=== PATIENT | female | born 1995 | race Hispanic/Latino ===

== ENCOUNTER 2019-09-03 06:41 | Observation (INO) | payer OTHER, SELFPAY ==
[~2019-09-03 06:41] MED LIST: OXYTOCIN/LR 20 UNIT/1,000 ML BAG IV SCH
[2019-09-03] MEDS ORDERED: Ringers Lactate 1,000 ML IV ONE (06:57)
[2019-09-03] MEDS ORDERED: OXYTOCIN/LR 20 UNIT/1,000 ML BAG IV ONE ×2 (07:00→10:05)
--- NOTE | 2019-09-03 07:42 | ER ---
Nurse's Notes [facility] Name: Lucille Man Age: 23 yrs Sex: Female : 1995 Arrival Date: 09/03/2019 Time: 06:46 Bed 4 Private MD: Diagnosis: Spontaneous -23 weeks Presentation: 09/02 06:30 Chief complaint: EMS states: Pt reports having a miscarriage about 15 to 20 minutes ea ago, pt reported he was approximately 5 to 6 months , EMS noted fetus was not viable, after was delivered. Coronavirus screen: Patient denies fever greater than 100.4F, cough, shortness of breath, or difficulty breathing. Ebola Screen: No symptoms or risks identified at this time. Initial Sepsis Screen: Does the patient meet any 2 criteria? No. Patient's initial sepsis screen is negative. Does the patient have a suspected source of infection? No. Patient's initial sepsis screen is negative. Risk Assessment: Do you want to hurt yourself or someone else? Patient reports no desire to harm self or others. 06:30 Method Of Arrival: EMS: [facility] ea 06:30 Acuity: [place] 3 ea Triage Assessment: 06:58 General: Appears in no apparent distress. Behavior is calm, cooperative. Pain: Denies ea pain. 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 - Family history:: not pertinent. - Social history:: Smoking status: Patient denies any tobacco usage or history of. Screenin:49 Abuse screen: Denies threats or abuse. Nutritional screening: No deficits noted. ea Tuberculosis screening: No symptoms or risk factors identified. Fall Risk None identified. Assessment: 06:30 General: Appears in no apparent distress. Behavior is quiet. Neuro: Level of ea Consciousness is awake, alert, obeys commands, Oriented to person, place, time, situation. Cardiovascular: Patient's skin is warm and dry. Respiratory: Airway is patent Respiratory effort is even, unlabored, Respiratory pattern is regular, symmetrical. : Reports vaginal bleeding that is. Derm: Skin is pink, warm \T\ dry. 07:00 Reassessment: RECD REPORT FROM MIRTHA JENNINGS. 23YO HF, APPROX 5 MONTHS GESTATION P/W bp DELIVERY OF STILL BORN FETUS AND PLACENTA. NO LOCHEA NOTED AT THIS TIME, PAD IN PLACE. , UNKNOWN AMOUNT OF CARE. 07:06 Reassessment: Fetus weight .68 kg. ea 08:33 Reassessment: ADMIT TO [facility] IN PROCESS. PT RETAINS POSSESSION OF FETUS AT bp THIS TIME, MD AWARE. Vital Signs: 06:30 BP 114 / 79; Pulse 93; Resp 18; Temp 97.8; Pulse Ox 99% ; Weight 70.31 kg; Height 5 ft. ea 3 in. (160.02 cm); 07:00 BP 105 / 50; Pulse 76; Resp 16; Pulse Ox 99% ; bp 08:30 BP 98 / 55; Pulse 64; Resp 16; Pulse Ox 98% ; bp 06:30 Body Mass Index 27.46 (70.31 kg, 160.02 cm) ea ED Course: 06:45 Inserted saline lock: 20 gauge in left antecubital area, using aseptic technique. ea 06:46 Patient arrived in ED. curry 06:47 Chris Grigsby MD is Attending Physician. curry 06:57 Triage completed. ea 06:57 Patient has correct armband on for positive identification. Placed in gown. Bed in low ea position. Call light in reach. Side rails up X2. 06:57 Arm band placed on right wrist. Patient placed in an exam room, on a stretcher, on ea pulse oximetry. 07:39 Albaro Child MD is Hospitalizing Provider. curry 08:05 Markell Brown, MICHAELA is Primary Nurse. bp 08:39 No provider procedures requiring assistance completed. Patient admitted, IV remains in bp place. Administered Medications: 06:53 Drug: Lactated Ringers Solution 1000 ml Route: IV; Rate: 150 ml/hr; Site: left jb4 antecubital; 08:40 Follow up: IV Status: Infusion continued upon admission bp 06:53 Drug: Pitocin 20 units Route: IV; Rate: 150 ml/hr; Site: left antecubital; 08:40 Follow up: IV Status: Infusion continued upon admission bp Outcome: 07:41 Decision to Hospitalize by Provider. curry 08:39 Admitted to L \T\ D, accompanied by tech, via stretcher, room 279, with chart. bp 08:39 Condition: stable 08:39 Instructed on the need for admit. 09:10 Patient left the ED. bp Signatures: Chris Grigsby MD MD cha Bryson, James, RN RN jb4 Mirtha Rosa, RN RN Markell Donovan, RN RN Leslie Gardner, RN RN
--- NOTE | 2019-09-03 07:42 | EDPHYS ---
Physician Documentation [facility] Name: Lucille Man Age: 23 yrs Sex: Female : 1995 Arrival Date: 09/03/2019 Time: 06:46 Bed 4 Private MD: LANA Physician Chris Grigsby HPI: 09/02 06:50 This 23 yrs old Female presents to ER via Unassigned with complaints of curry spontaneous . 06:50 The patient presents to the emergency department with vaginal bleeding, that is light, curry passed 23 week iup , non viable. The estimated gestational age is 23 weeks. course: care: none. Previous pregnancies: in previous pregnancies patient has had vaginal delivery. Associated signs and symptoms: The patient has no apparent associated signs or symptoms. The patient has not experienced similar symptoms in the past. 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 - Family history:: not pertinent. - Social history:: Smoking status: Patient denies any tobacco usage or history of. ROS: 06:50 Constitutional: Negative for fever, chills, and weight loss, Eyes: Negative for injury, curry pain, redness, and discharge, ENT: Negative for injury, pain, and discharge, Neck: Negative for injury, pain, and swelling, Cardiovascular: Negative for chest pain, palpitations, and edema, Respiratory: Negative for shortness of breath, cough, wheezing, and pleuritic chest pain, Abdomen/GI: Negative for abdominal pain, nausea, vomiting, diarrhea, and constipation, Back: Negative for injury and pain, MS/Extremity: Negative for injury and deformity, Skin: Negative for injury, rash, and discoloration, Neuro: Negative for headache, weakness, numbness, tingling, and seizure, Psych: Negative for depression, anxiety, suicide ideation, homicidal ideation, and hallucinations, Allergy/Immunology: Negative for hives, rash, and allergies, Endocrine: Negative for neck swelling, polydipsia, polyuria, polyphagia, and marked weight changes, Hematologic/Lymphatic: Negative for swollen nodes, abnormal bleeding, and unusual bruising. 06:50 : Positive for vaginal bleeding, spontaneous . Exam: 06:50 Head/Face: Normocephalic, atraumatic. Eyes: Pupils equal round and reactive to light, curry extra-ocular motions intact. Lids and lashes normal. Conjunctiva and sclera are non-icteric and not injected. Cornea within normal limits. Periorbital areas with no swelling, redness, or edema. ENT: Nares patent. No nasal discharge, no septal abnormalities noted. Tympanic membranes are normal and external auditory canals are clear. Oropharynx with no redness, swelling, or masses, exudates, or evidence of obstruction, uvula midline. Mucous membranes moist. Neck: Trachea midline, no thyromegaly or masses palpated, and no cervical lymphadenopathy. Supple, full range of motion without nuchal rigidity, or vertebral point tenderness. No Meningismus. Chest/axilla: Normal chest wall appearance and motion. Nontender with no deformity. No lesions are appreciated. Cardiovascular: Regular rate and rhythm with a normal S1 and S2. No gallops, murmurs, or rubs. Normal PMI, no JVD. No pulse deficits. Respiratory: Lungs have equal breath sounds bilaterally, clear to auscultation and percussion. No rales, rhonchi or wheezes noted. No increased work of breathing, no retractions or nasal flaring. Back: No spinal tenderness. No costovertebral tenderness. Full range of motion. Skin: Warm, dry with normal turgor. Normal color with no rashes, no lesions, and no evidence of cellulitis. MS/ Extremity: Pulses equal, no cyanosis. Neurovascular intact. Full, normal range of motion. Neuro: Awake and alert, GCS 15, oriented to person, place, time, and situation. Cranial nerves II-XII grossly intact. Motor strength 5/5 in all extremities. Sensory grossly intact. Cerebellar exam normal. Normal gait. Psych: Awake, alert, with orientation to person, place and time. Behavior, mood, and affect are within normal limits. 06:50 Abdomen/GI: Inspection: gravid appearance, Bowel sounds: normal, Palpation: abdomen is soft and non-tender, Liver: no appreciated palpable abnormalities, Hernia: not appreciated. Vital Signs: 06:30 BP 114 / 79; Pulse 93; Resp 18; Temp 97.8; Pulse Ox 99% ; Weight 70.31 kg; Height 5 ft. ea 3 in. (160.02 cm); 07:00 BP 105 / 50; Pulse 76; Resp 16; Pulse Ox 99% ; bp 08:30 BP 98 / 55; Pulse 64; Resp 16; Pulse Ox 98% ; bp 06:30 Body Mass Index 27.46 (70.31 kg, 160.02 cm) ea MDM: 06:47 Patient medically screened. [facility] 07:01 Data reviewed: vital signs, nurses notes, lab test result(s). [facility] 09/02 06:48 Order name: Quantitative Hcg [facility] 09/02 06:48 Order name: Abo/rh Typing [facility] 09/02 06:48 Order name: Basic Metabolic Panel [facility] 09/02 06:48 Order name: CBC with Diff [facility] 09/02 08:39 Order name: ABO/RH no charge [facility] 09/02 06:48 Order name: IV Saline Lock; Complete Time: 07:01 [facility] 09/02 06:48 Order name: Labs collected and sent; Complete Time: 07:01 [facility] 09/02 06:48 Order name: NPO; Complete Time: 07:01 [facility] Administered Medications: 06:53 Drug: Lactated Ringers Solution 1000 ml Route: IV; Rate: 150 ml/hr; Site: left jb4 antecubital; 08:40 Follow up: IV Status: Infusion continued upon admission bp 06:53 Drug: Pitocin 20 units Route: IV; Rate: 150 ml/hr; Site: left antecubital; 08:40 Follow up: IV Status: Infusion continued upon admission bp Disposition: 09/03/19 07:41 Hospitalization ordered by Albaro Child for Observation. Preliminary diagnosis is Spontaneous - 23 weeks. - Bed requested for [facility]. - Status is Observation. bp - Condition is Stable. - Problem is new. - Symptoms have improved. Signatures: Dispatcher [employer] EDChris French MD MD cha Bryson, James, RN RN jb4 Mirtha Rosa RN RN ea Peltier, Brian, RN RN bp Botello, Elizabeth eb Harris, Amy RN RN Corrections: (The following items were deleted from the chart) 07:57 07:41 Hospitalization Ordered by Albaro Child MD for Observation. Preliminary eb diagnosis is Spontaneous - 23 weeks. Bed requested for [facility]. Status is Observation. Condition is Stable. Problem is new. Symptoms have improved. curry 09:10 07:57 09/03/2019 07:41 Hospitalization Ordered by Albaro Child MD for Observation. bp Preliminary diagnosis is Spontaneous - 23 weeks. Bed requested for [facility]. Status is Observation. Condition is Stable. Problem is new. Symptoms have improved. eb
[2019-09-03 07:53] LABS: Absolute Lymphocytes (CBC) 1.2 K/uL (0.7-4.9); Basophils % 0.3 % (0-1.3); Hematocrit 39.5 % (36.0-45.0); Lymphocytes % 7.1 % (15.3-44.8); MPV 9.2 fL (7.6-11.3); RBC Red Blood Cell Count 4.51 M/uL (3.86-4.86)
[2019-09-03 08:08] LABS: BUN Blood Urea Nitrogen 9 mg/dL (7-18); Bicarbonate 17 mmol/L (21-32); Glucose Level 104 mg/dL (74-106); HCG, Quantitative 5903 mIU/mL (1-3); Potassium 3.6 mmol/L (3.5-5.1); Sodium Level 134 mmol/L (136-145)
--- NOTE | 2019-09-03 09:09 | PREOPHP ---
Date of Admission: 09/03/2019 A 23-year-old 4, para 2, AB 1 at 18 weeks prior, 23 weeks by dates on this . First ended at approximately 18 weeks. The next 2 were uneventful pregnancies. With this pregna ncy, patient had been seen in the emergency room setting at approximately 20 weeks for threatened mis carriage. Everything looked better after that for the next 3 weeks. Then went into labor and passed her fetus, female, and placenta outside the hospital. Was brought in and is in the emergency room n ow. She is quite stable. Vital signs are all normal. Blood studies are pending. Because the baby is past 20 weeks and obviously looks quite normal, patient knows that arrangements will be ma de. She will be transferred up to our Labor and Delivery area where she will be monitored for the ne xt several hours, nonetheless we will let her go home this afternoon. The nurses up here will of ibeth corbin go through all the procedures with her of giving her a package with the baby's hand prints, foot prints, and photographs if desired. She has no outstanding health problems at this point. Physical exam is normal as per emergency room personnel. She does not know her blood type and of course that will be determined and we will go over with her with things today as the day progresses. Right now, she is quite stable and was resting comfortably with the baby. RICARDO/ABDIAZIZ Voice ID: [id number]
[2019-09-03 09:22] VITALS: O2SAT 98
[2019-09-03 09:27] LABS: Blood Morphology Comment NOT SEEN (NOT SEEN); Platelet Estimate ADEQ
[2019-09-03] MEDS ORDERED: Ringers Lactate 1,000 ML IV SCH (09:54)
[2019-09-03] MEDS ORDERED: ONDANSETRON 4 MG/2 ML VIAL IV PRN (09:54)
[2019-09-03] MEDS ORDERED: MORPHINE 2 MG/ML SYR IV PRN (09:54)
[2019-09-03] MEDS ORDERED: ACETAMINOPHEN 500 MG TAB PO PRN (09:54)
[2019-09-03] MEDS ORDERED: ACETAMINOPHEN 325 MG TABLET ONE (09:55)
[2019-09-03 10:27] VITALS: BMI 34.5
[2019-09-03] MEDS ORDERED: OXYTOCIN/LR 20 UNIT/1,000 ML BAG IV SCH (11:00)
[2019-09-03 11:43] VITALS: BP 98/65; TEMP 97.4
--- NOTE | 2019-09-05 07:10 | DS ---
Date of Discharge: 09/03/2019 A 23-year-old 4, para 2, AB1, 18 weeks prior miscarriage, 23 weeks by dates this . No care. Came into the emergency room with the complete delivery of fetus, which appeared n ormal female and placenta were sent to Labor and Delivery. Observed for several hours and then at he r request she was dismissed. She is Rh positive. Full dismissal instructions given. She is to repo rt any temperature elevation of 100 degrees or greater, severe pain, heavy bleeding, or any other typ e of abnormalities. She is instructed to call my office and see me for followup in 6 weeks. We will try to get the patient in contact with the psychotherapist social worker. Full dismissal instructions. RICARDO/ABDIAZIZ Voice ID: [id number] Report ID: [id number]
== END 2019-09-03 14:15 | disposition home or self-care (01) ==
LOC: ER 06:41 → ERHOLD 07:45 → 2ND-WC 08:42
PROVIDERS: ADMIT Specialist; ATTEND Specialist
DX: O03.9 Complete or unspecified spontaneous abortion without complication (principal); Z3A.23 23 weeks gestation of pregnancy
CPT/HCPCS: 36415; 80048; 84702; 85025; 86900; 86901; 88305; 96365; 96366; 99285; G0378; J2270; J2590; J7120

== ENCOUNTER 2021-12-07 09:48 | Emergency (ER) | payer OTHER ==
--- OUTSIDE RECORDS SUMMARY | 2021-12-07 09:55 | XMS REPORT | Continuity of Care Document ---
:1995 Author Organization [facility] t Address [address] [place] [address] Care Team Providers Name Role Phone PCP, DOES NOT HAVE A Primary Care Physician Unavailable TYRONE Attending Clinician Unavailable Khadra AVILA Attending Clinician Unavailable JEREMÍAS ROACH Attending Clinician Unavailable Jeremías Roach MD Attending Clinician Doctor Unassigned, Name Attending Clinician Unavailable Pob, Lab Main Attending Clinician Unavailable Tyrone CALDERÓN Attending Clinician 2, Lab Attending Clinician Unavailable Ultrasound Attending Clinician Unavailable Antonio Espinosa MD Attending Clinician ANTONIO ESPINOSA Attending Clinician Unavailable JEREMÍAS ROACH Admitting Clinician Unavailable Jeremías Roach MD Admitting Clinician Payers Payer Name Policy Type Policy Number Effective Date Expiration Date S gabino [facility] [id number] 2020 00:00:00 Problems Condition Condition Condition Status Onset Resolution Last Treating Co mments Source Name Details Category Date Date Treatment Clinician Date Liveborn Liveborn Disease Active Unive rs infant, of , of 2-18 it y of luciano luciano 00:[place] , , 00 Me d[place] born in born in [facility] hospital by by delivery delivery 39 weeks 39 weeks Disease Active Unive rs gestation gestation 2-17 ity of of of 00:00: [place] 00 [facility] 38 weeks 38 weeks Disease Active Unive rs gestation gestation 2-16 ity of of of 00:00: [place] 00 [facility] High risk High risk Disease Active 2020-06 Uni vers , , 2-28 [place] [facility] Abnormal Abnormal Disease Active 2020-06 Unive rs maternal maternal 2-07 ity of glucose glucose 00:00: [place] tolerance, tolerance, 00 Me dical antepartum antepartum Br anch History of History of Disease Active U nivers anxiety anxiety 3-31 ity of 00:00: [address] Asthma Asthma Disease Active Univers affecting affecting 3-31 ity of , , [place] antepartum antepartum 00 Me dicdc Branch Obesity Obesity Disease Active Univers (BMI (BMI 3-30 ity of 30-39.9) 30-39.9) 00:00: [place] [facility] H/O H/O Disease Active Univers 3-30 ity of section section 00:00: [place] [facility] Immune to Immune to Disease Active Uni vers varicella varicella 7-22 ity of 00:00: [place] [facility] Family Family Disease Active Univers history of history of 5-27 it y of spina spina 00:00: [place] bifida bifida 00 [facility] Allergies, Adverse Reactions, Alerts Allergy Allergy Status Severity Reaction(s) Onset Inactive Treating Comm ents Source Name Type Date Date Clinician No Known DA Active U 2020-0 [facility] 2-20 [place] 00:[facility]: e 00 [facility] No Known DA Active U 2020-0 [facility] Allergie 2-20 [place] 00:[facility]: e 00 Medical [place] NO KNOWN Drug Active Univers ALLERGIE Class ity of S [facility] Social History Social Habit Start Date Stop Date Quantity Comments Source ASSERTION 2020-11-15 University of 00:00:00 [facility] Exposure to Not sure University of SARS-CoV-2 [place] [facility] (event) Branch Alcohol intake 2021-10-07 2021-10-07 Current University 00:00:00 00:00:00 non-drinker of [facility] alcohol Branch (finding) Tobacco use and 2015-11-09 2015-11-09 Never used Universit y of exposure 00:00:00 00:00:00 [facility] Sex [birth year] Universit y of 00:00:00 00:00:00 [facility] Smoking Status Start Date Stop Date Source Never smoker [facility] Medical Branch Medications Ordered Filled Start Stop Current Ordering Indication Dosage Frequency Signature Comments Components Source Medication Medication Date Date Medication? Clinician (SIG) Name Name miSOPROStoL Yes [id number] 200ug Take 1 Univers 200 mcg 4-25 tablet by ity of tablet 00:00: mouth [place] SEE-INSTRU Medical CTIONS. Branch Take one tab the night before and one tab the morning of procedure busPIRone 5 2021- Yes [id number] 5mg Take 1 Univers mg tablet 4-25 tablet by ity o f 00:00: mouth 2 (two) Medical times Branch daily. ibuprofen 2021-0 Yes 600mg 600 mg, Univ ers (IBU) 2-19 Oral, Q6H ity of tablet 600 06:00: ABX, First [place] mg 00 dose on Medical Sat Branch 08/03/21 at 0000, Until Discontinu ed, Routine ibuprofen 2021-0 Yes 600mg 600 mg, Univ ers (IBU) 2-19 Oral, Q6H ity of tablet 600 06:00: ABX, First [place] mg 00 dose on Medical Sat Branch 08/03/21 at 0000, Until Discontinu ed, Routine HYDROcodone 2021-0 Yes 1{tbl} 1 tablet, Univers -acetaminop 2-18 Oral, ity of hen (NORCO) 06:00: Q6HPRN, [place] 10-325 mg 00 Starting Medica l tablet 1 on Fri Branch tablet 08/02/21 at 0000, Until Discontinu ed, Routine, Pain (scale 7-10) HYDROcodone 2021-0 Yes 1{tbl} 1 tablet, Univers -acetaminop 2-18 Oral, ity of hen (NORCO) 06:00: Q6HPRN, [place] 10-325 mg 00 Starting Medica l tablet 1 on Thu Branch tablet 08/02/21 at 0000, Until Discontinu ed, Routine, Pain (scale 7-10) ketorolac 2021- No 30mg 30 mg, Unive rs (TORADOL) 08-02 Slow IV ity of injection 06:00: 05:59 [place], Q6H [place] 30 mg 00 :00 ABX, 4 Medical doses, Branch First dose on Thu08/02/21 at 0000, Last dose on Thu08/02/21 at 1800, Routine
food service team member approving Restricted medication : ROJELIO ROACH ketorolac 2021- No 30mg 30 mg, Unive rs (TORADOL) 08-02 Slow IV ity of injection 06:00: 00:45 [place], Q6H [place] 30 mg 00 :00 ABX, 4 Medical doses, Branch First dose on Thu08/02/21 at 0000, Last dose on Thu08/02/21 at 1800, Routine
food service team member approving Restricted medication : ROJELIO ROACH acetaminoph Yes 650mg 650 mg, Un janny en 2-18 Oral, Q6H ity of (TYLENOL) 04:00: ABX, First [place] tablet 650 00 dose on Medica l mg [place] Branch 08/01/21 at 2200, Until Discontinu ed, Routine acetaminoph Yes 650mg 650 mg, Un janny en 2-18 Oral, Q6H ity of (TYLENOL) 04:00: ABX, First [place] tablet 650 00 dose on Medica l mg [place] Branch 08/01/21 at 2200, Until Discontinu ed, Routine acetaminoph Yes [id number] 650mg Take 2 Univers en 325 mg 2-18 tablets by ity of tablet 00:00: mouth [place] 00 every 6 Medical (six) Branch hours as needed for Pain (scale 1-3) or Pain (scale 4-6). Yes [id number] 1{tbl} Take 1 Univers vitamin 2-18 tablet by ity of w/FA tablet 00:00: mouth [place] 00 daily. Medical Branch docusate Yes [id number] 240mg Take 1 U nivers calcium 240 2-18 capsule by it y of mg capsule 00:00: mouth once [place] 00 daily as Medical needed for Branch Constipati on. ferrous 0 Yes [id number] 325mg Take 1 Un janny sulfate 325 2-18 tablet by ity of mg (65 mg 00:00: mouth 2 [place] iron) 00 (two) Medical tablet times Branch daily. ibuprofen Yes [id number] 600mg Take 1 Univers 600 mg 2-18 tablet by ity of tablet 00:00: mouth [place] 00 every 6 Medical (six) Branch hours as needed (Pain). Take with food or milk. acetaminoph Yes [id number] 650mg Take 2 Univers en 325 mg 2-18 tablets by ity of tablet 00:00: mouth [place] 00 every 6 Medical (six) Branch hours as needed for Pain (scale 1-3) or Pain (scale 4-6). Yes [id number] 1{tbl} Take 1 Univers vitamin 2-18 tablet by ity of w/FA tablet 00:00: mouth [place] 00 daily. Medical Branch docusate Yes [id number] 240mg Take 1 U nivers calcium 240 2-18 capsule by it y of mg capsule 00:00: mouth once [place] 00 daily as Medical needed for Branch Constipati on. ferrous Yes [id number] 325mg Take 1 Un janny sulfate 325 2-18 tablet by ity of mg (65 mg 00:00: mouth 2 [place] iron) 00 (two) Medical tablet times Branch daily. ibuprofen Yes [id number] 600mg Take 1 Univers 600 mg 2-18 tablet by ity of tablet 00:00: mouth [place] 00 every 6 Medical (six) Branch hours as needed (Pain). Take with food or milk. acetaminoph 0 Yes [id number] 650mg Take 2 Univers en 325 mg 2-18 tablets by ity of tablet 00:00: mouth [place] 00 every 6 Medical (six) Branch hours as needed for Pain (scale 1-3) or Pain (scale 4-6). Yes [id number] 1{tbl} Take 1 Univers vitamin 2-18 tablet by ity of w/FA tablet 00:00: mouth [place] 00 daily. Medical Branch docusate Yes [id number] 240mg Take 1 U nivers calcium 240 2-18 capsule by it y of mg capsule 00:00: mouth once [place] 00 daily as Medical needed for Branch Constipati on. ferrous Yes [id number] 325mg Take 1 Un janny sulfate 325 2-18 tablet by ity of mg (65 mg 00:00: mouth 2 [place] iron) 00 (two) Medical tablet times Branch daily. ibuprofen Yes [id number] 600mg Take 1 Univers 600 mg 2-18 tablet by ity of tablet 00:00: mouth [place] 00 every 6 Medical (six) Branch hours as needed (Pain). Take with food or milk. acetaminoph Yes [id number] 650mg Take 2 Univers en 325 mg 2-18 tablets by ity of tablet 00:00: mouth [place] 00 every 6 Medical (six) Branch hours as needed for Pain (scale 1-3) or Pain (scale 4-6). Yes [id number] 1{tbl} Take 1 Univers vitamin 2-18 tablet by ity of w/FA tablet 00:00: mouth [place] 00 daily. Medical Branch docusate Yes [id number] 240mg Take 1 U nivers calcium 240 2-18 capsule by it y of mg capsule 00:00: mouth once [place] 00 daily as Medical needed for Branch Constipati on. ferrous Yes [id number] 325mg Take 1 Un janny sulfate 325 2-18 tablet by ity of mg (65 mg 00:00: mouth 2 [place] iron) 00 (two) Medical tablet times Branch daily. ibuprofen Yes [id number] 600mg Take 1 Univers 600 mg 2-18 tablet by ity of tablet 00:00: mouth [place] 00 every 6 Medical (six) Branch hours as needed (Pain). Take with food or milk. acetaminoph 0 Yes [id number] 650mg Take 2 Univers en 325 mg 2-18 tablets by ity of tablet 00:00: mouth [place] 00 every 6 Medical (six) Branch hours as needed for Pain (scale 1-3) or Pain (scale 4-6). 0 Yes [id number] 1{tbl} Take 1 Univers vitamin 2-18 tablet by ity of w/FA tablet 00:00: mouth [place] 00 daily. Medical Branch docusate Yes [id number] 240mg Take 1 U nivers calcium 240 2-18 capsule by it y of mg capsule 00:00: mouth once [place] 00 daily as Medical needed for Branch Constipati on. ferrous Yes [id number] 325mg Take 1 Un janny sulfate 325 2-18 tablet by ity of mg (65 mg 00:00: mouth 2 [place] iron) 00 (two) Medical tablet times Branch daily. ibuprofen Yes [id number] 600mg Take 1 Univers 600 mg 2-18 tablet by ity of tablet 00:00: mouth [place] 00 every 6 Medical (six) Branch hours as needed (Pain). Take with food or milk. Yes [id number] 1{tbl} Take 1 Univers vitamin 2-18 tablet by ity of w/FA tablet 00:00: mouth [place] 00 daily. Medical Branch ferrous Yes [id number] 325mg Take 1 Un janny sulfate 325 2-18 tablet by ity of mg (65 mg 00:00: mouth 2 [place] iron) 00 (two) Medical tablet times Branch daily. acetaminoph 2021- No [id number] 650mg Take 2 Univers en 325 mg 2-18 04-25 tablets by ity of tablet 00:00: 00:00 mouth [place] 00 :00 every 6 Medical (six) Branch hours as needed for Pain (scale 1-3) or Pain (scale 4-6). docusate 2021- No [id number] 240mg Take 1 Univers calcium 240 2-18 04-25 capsule by i ty of mg capsule 00:00: 00:00 mouth once [place] 00 :00 daily as Medical needed for Branch Constipati on. ibuprofen 2021- No [id number] 600mg Take 1 Univers 600 mg 2-18 04-25 tablet by ity of tablet 00:00: 00:00 mouth [place] 00 :00 every 6 Medical (six) Branch hours as needed (Pain). Take with food or milk. HYDROcodone 2021- No [id number] 1{tbl} Take 1 U nivers -acetaminop 2-18 02-26 tablet by it y of hen 10-325 00:00: 05:59 mouth [place] mg tablet 00 :00 every 6 Medical (six) Branch hours as needed for Pain (scale 7-10) for up to 7 days. Indication s: acute pain HYDROcodone 2021- No [id number] 1{tbl} Take 1 U nivers -acetaminop 2-18 02-26 tablet by it y of hen 10-325 00:00: 05:59 mouth [place] mg tablet 00 :00 every 6 Medical (six) Branch hours as needed for Pain (scale 7-10) for up to 7 days. Indication s: acute pain HYDROcodone 2021-2021- No [id number] 1{tbl} Take 1 U nivers -acetaminop 2-18 02-26 tablet by it y of hen 10-325 00:00: 05:59 mouth [place] mg tablet 00 :00 every 6 Medical (six) Branch hours as needed for Pain (scale 7-10) for up to 7 days. Indication s: acute pain gabapentin 2021-2021- No [id number] 300mg Take 1 Univers 300 mg 2-18 02-24 capsule by ity of capsule 00:00: 05:59 mouth 3 [place] 00 :00 (three) Medical times Branch daily for 5 days. gabapentin 2021-2021- No [id number] 300mg Take 1 Univers 300 mg 2-18 02-24 capsule by ity of capsule 00:00: 05:59 mouth 3 [place] 00 :00 (three) Medical times Branch daily for 5 days. gabapentin 2021-2021- No [id number] 300mg Take 1 Univers 300 mg 2-18 02-24 capsule by ity of capsule 00:00: 05:59 mouth 3 [place] 00 :00 (three) Medical times Branch daily for 5 days. gabapentin 2022-0 Yes 300mg 300 mg, Uni vers (NEURONTIN) 2-17 Oral, TID, it y of capsule 300 20:00: First dose [place] mg 00 on [facility] 08/01/21 at Branch 1400, Until Discontinu ed, Routine gabapentin 2-0 Yes 300mg 300 mg, Uni vers (NEURONTIN) 2-17 Oral, TID, it y of capsule 300 20:00: First dose [place] mg 00 on [facility] 08/01/21 at Branch 1400, Until Discontinu ed, Routine simethicone 0 Yes 125mg 125 mg, Un janny (MYLICON) 2-17 Oral, ity of chewable 19:00: PC+HS, [place] tablet 125 00 First dose Med ical mg on [place] Branch 08/01/21 at 1300, Until Discontinu ed, Routine simethicone 0 Yes 125mg 125 mg, Un janny (MYLICON) 2-17 Oral, ity of chewable 19:00: PC+HS, [place] tablet 125 00 First dose Med ical mg on [place] Branch 08/01/21 at 1300, Until Discontinu ed, Routine lactated 2021- No 1000mL at 125 [facility] ringers IV 08-01 02-17 mL/hr, ity of infusion 16:15: 16:02 1,000 mL, [place] 1,000 mL 00 :00 IV Medical Infusion, Branch ONCE, 1 dose, On [facility] 08/01/21 at 1015, Routine rho(D) 0 Yes 300ug [facility] Intr[facility] ity of globulin 16:00: lar, ONCE, [place] (RHOGAM) 22 For 1 Medical syringe 300 dose, Branch mcg Conditiona l, Routine rho(D) 0 Yes 300ug 300 mcg, Univer s immune 17 Intramuscu ity of globulin 16:00: lar, ONCE, [place] (RHOGAM) 22 For 1 Medical syringe 300 dose, Branch mcg Conditiona l, Routine diphenhydrA 0 Yes 25mg 25 mg, [facility] MINE 08-01 Slow IV ity of (BENADRYL) 16:00: Push, [place] injection 17 Q6HPRN, Medical 25 mg Starting Branch on [place] 08/01/21 at 1000, Until Discontinu ed, Routine, Itching diphenhydrA 0 Yes 25mg 25 mg, [facility] MINE 17 Oral, ity of (BENADRYL) 16:00: Q6HPRN, [place] tablet 25 17 Starting Medica l mg on [place] Branch 08/01/21 at 1000, Until Discontinu ed, Routine, Sleep, Itching ondansetron 0 Yes 4mg 4 mg, Slow Univers (ZOFRAN 2-17 IV Push, ity of (PF)) 16:00: Q8HPRN, [place] injection 4 17 Starting Medi chante mg on [place] Branch 08/01/21 at 1000, Until Discontinu ed, Routine, Nausea and Vomiting (N/V) bisacodyL 2022-0 Yes 10mg 10 mg, Univer s (DULCOLAX) 2-17 Rectal, ity of suppository 16:00: QDAILYPRN, [place] 10 mg 17 Starting Medical on [place] Branch 08/01/21 at 1000, Until Discontinu ed, Routine, Constipati on docusate 2022-0 Yes 240mg 240 mg, Unive rs calcium 2-17 Oral, ity of (SURFAK) 16:00: QDAILYPRN, [place] capsule 240 17 Starting Medi chante mg on [place] Branch 08/01/21 at 1000, Until Discontinu ed, Routine, Constipati on magnesium 2-0 Yes 30mL 30 mL, Univer s hydroxide 2-17 Oral, ity of (MILK OF 16:00: QDAILYPRN, [place] MAGNESIA) 17 Starting Medica l 400 mg/5 mL on [place] Branch suspension 08/01/21 at 30 mL 1000, Until Discontinu ed, Routine, Constipati on diphenhydrA 2022-0 Yes 25mg 25 mg, Univ ers MINE 2-17 Slow IV ity of (BENADRYL) 16:00: Push, [place] injection 17 Q6HPRN, Medical 25 mg Starting Branch on [place] 08/01/21 at 1000, Until Discontinu ed, Routine, Itching diphenhydrA 2022-0 Yes 25mg 25 mg, Univ ers MINE 2-17 Oral, ity of (BENADRYL) 16:00: Q6HPRN, [place] tablet 25 17 Starting Medica l mg on [place] Branch 08/01/21 at 1000, Until Discontinu ed, Routine, Sleep, Itching ondansetron 2022-0 Yes 4mg 4 mg, Slow Univers (ZOFRAN 2-17 IV Push, ity of (PF)) 16:00: Q8HPRN, [place] injection 4 17 Starting Medi chante mg on [place] Branch 08/01/21 at 1000, Until Discontinu ed, Routine, Nausea and Vomiting (N/V) bisacodyL Yes 10mg 10 mg, Univer s (DULCOLAX) 2-17 Rectal, ity of suppository 16:00: QDMIKEYPRN, [place] 10 mg 17 Starting Medical on [place] Branch 08/01/21 at 1000, Until Discontinu ed, Routine, Constipati on docusate Yes 240mg 240 mg, Unive rs calcium 17 Oral, ity of (SURFAK) 16:00: QDAILYPRN, [place] capsule 240 17 Starting Medi chante mg on [place] Branch 08/01/21 at 1000, Until Discontinu ed, Routine, Constipati on magnesium Yes 30mL 30 mL, Univer s hydroxide 08-01 Oral, ity of (MILK OF 16:00: QDAILYPRN, [place] MAGNESIA) 17 Starting Medica l 400 mg/5 mL on [place] Branch suspension 08/01/21 at 30 mL 1000, Until Discontinu ed, Routine, Constipati on sodium No 30mL 30 mL, Univers citrate-cit 17 -17 Oral, ity of jose alejandro acid 12:08: 14:02 PRE-PROCED [place] (BICITRA) 41 :00 URE ONCE, Medic al [id number] 1 dose, Branch mg/5 mL Starting solution 30 on [place] mL 08/01/21 at 0608, Until Discontinu ed, Routine, Surgery/Pr ocedure PNV 0 Yes [id number] Take 1 Univers 102-iron-fo 7-14 TAB-CAP/M2 it y of late-dha 00:00: by mouth [place] (VITAFOL FE 00 daily. Medica l PLUS) 90 mg Branch iron- 1 mg-200 mg Cap metoclopram Yes [id number] 10mg Take 1 Univers cheli HCl 10 7-14 tablet by ity of mg tablet 00:00: mouth [place] 00 every 6 Medical (six) Branch hours as needed for Nausea and Vomiting (N/V). PNV 0 Yes [id number] Take 1 Univers 102-iron-fo 7-14 TAB-CAP/M2 it y of late-dha 00:00: by mouth [place] (VITAFOL FE 00 daily. Medica l PLUS) 90 mg Branch iron- 1 mg-200 mg Cap metoclopram 0 Yes [id number] 10mg Take 1 Univers cheli HCl 10 7-14 tablet by ity of mg tablet 00:00: mouth [place] 00 every 6 Medical (six) Branch hours as needed for Nausea and Vomiting (N/V). PNV 2020-0 Yes [id number] Take 1 Univers 102-iron-fo 7-14 TAB-CAP/M2 it y of late-dha 00:00: by mouth [place] (VITAFOL FE 00 daily. Medica l PLUS) 90 mg Branch iron- 1 mg-200 mg Cap metoclopram 0 Yes [id number] 10mg Take 1 Univers cheli HCl 10 7-14 tablet by ity of mg tablet 00:00: mouth [place] 00 every 6 Medical (six) Branch hours as needed for Nausea and Vomiting (N/V). PNV Yes [id number] Take 1 Univers 102-iron-fo 7-14 TAB-CAP/M2 it y of late-dha 00:00: by mouth [place] (VITAFOL FE 00 daily. Medica l PLUS) 90 mg Branch iron- 1 mg-200 mg Cap metoclopram 0 Yes [id number] 10mg Take 1 Univers cheli HCl 10 7-14 tablet by ity of mg tablet 00:00: mouth [place] 00 every 6 Medical (six) Branch hours as needed for Nausea and Vomiting (N/V). PNV 0 Yes [id number] Take 1 Univers 102-iron-fo 7-14 TAB-CAP/M2 it y of late-dha 00:00: by mouth [place] (VITAFOL FE daily. Medica l PLUS) 90 mg Branch iron- 1 mg-200 mg Cap metoclopram 0 Yes [id number] 10mg Take 1 Univers cheli HCl 10 7-14 tablet by ity of mg tablet 00:00: mouth [place] 00 every 6 Medical (six) Branch hours as needed for Nausea and Vomiting (N/V). PNV 2020-0 Yes [id number] Take 1 Univers 102-iron-fo 7-14 TAB-CAP/M2 it y of late-dha 00:00: by mouth [place] (VITAFOL FE 00 daily. Medica l PLUS) 90 mg Branch iron- 1 mg-200 mg Cap metoclopram 0 Yes [id number] 10mg Take 1 Univers cheli HCl 10 7-14 tablet by ity of mg tablet 00:00: mouth [place] 00 every 6 Medical (six) Branch hours as needed for Nausea and Vomiting (N/V). PNV 2020-0 Yes [id number] Take 1 Univers 102-iron-fo 7-14 TAB-CAP/M2 it y of late-dha 00:00: by mouth [place] (VITAFOL FE 00 daily. Medica l PLUS) 90 mg Branch iron- 1 mg-200 mg Cap metoclopram 2020-0 Yes [id number] 10mg Take 1 Univers cheli HCl 10 7-14 tablet by ity of mg tablet 00:00: mouth [place] 00 every 6 Medical (six) Branch hours as needed for Nausea and Vomiting (N/V). PNV 2020-0 Yes [id number] Take 1 Univers 102-iron-fo 7-14 TAB-CAP/M2 it y of late-dha 00:00: by mouth [place] (VITAFOL FE 00 daily. Medica l PLUS) 90 mg Branch iron- 1 mg-200 mg Cap metoclopram 0 Yes [id number] 10mg Take 1 Univers cheli HCl 10 7-14 tablet by ity of mg tablet 00:00: mouth [place] 00 every 6 Medical (six) Branch hours as needed for Nausea and Vomiting (N/V). PNV 2020-0 Yes [id number] Take 1 Univers 102-iron-fo 7-14 TAB-CAP/M2 it y of late-dha 00:00: by mouth [place] (VITAFOL FE 00 daily. Medica l PLUS) 90 mg Branch iron- 1 mg-200 mg Cap metoclopram 2020-0 Yes [id number] 10mg Take 1 Univers cheli HCl 10 7-14 tablet by ity of mg tablet 00:00: mouth [place] 00 every 6 Medical (six) Branch hours as needed for Nausea and Vomiting (N/V). PNV 2020-0 Yes [id number] Take 1 Univers 102-iron-fo 7-14 TAB-CAP/M2 it y of late-dha 00:00: by mouth [place] (VITAFOL FE 00 daily. Medica l PLUS) 90 mg Branch iron- 1 mg-200 mg Cap metoclopram 2020-0 Yes [id number] 10mg Take 1 Univers cheli HCl 10 7-14 tablet by ity of mg tablet 00:00: mouth [place] 00 every 6 Medical (six) Branch hours as needed for Nausea and Vomiting (N/V). PNV 2020-0 Yes [id number] Take 1 Univers 102-iron-fo 7-14 TAB-CAP/M2 it y of late-dha 00:00: by mouth [place] (VITAFOL FE 00 daily. Medica l PLUS) 90 mg Branch iron- 1 mg-200 mg Cap metoclopram 2020-0 Yes [id number] 10mg Take 1 Univers cheli HCl 10 7-14 tablet by ity of mg tablet 00:00: mouth [place] 00 every 6 Medical (six) Branch hours as needed for Nausea and Vomiting (N/V). PNV 2020-0 Yes [id number] Take 1 Univers 102-iron-fo 7-14 TAB-CAP/M2 it y of late-dha 00:00: by mouth [place] (VITAFOL FE 00 daily. Medica l PLUS) 90 mg Branch iron- 1 mg-200 mg Cap metoclopram 0 Yes [id number] 10mg Take 1 Univers cheli HCl 10 7-14 tablet by ity of mg tablet 00:00: mouth [place] 00 every 6 Medical (six) Branch hours as needed for Nausea and Vomiting (N/V). PNV 0 Yes [id number] Take 1 Univers 102-iron-fo 7-14 TAB-CAP/M2 it y of late-dha 00:00: by mouth [place] (VITAFOL FE 00 daily. Medica l PLUS) 90 mg Branch iron- 1 mg-200 mg Cap metoclopram 2020-0 Yes [id number] 10mg Take 1 Univers cheli HCl 10 7-14 tablet by ity of mg tablet 00:00: mouth [place] 00 every 6 Medical (six) Branch hours as needed for Nausea and Vomiting (N/V). PNV 2020-0 Yes [id number] Take 1 Univers 102-iron-fo 7-14 TAB-CAP/M2 it y of late-dha 00:00: by mouth [place] (VITAFOL FE 00 daily. Medica l PLUS) 90 mg Branch iron- 1 mg-200 mg Cap metoclopram 2020-0 Yes [id number] 10mg Take 1 Univers cheli HCl 10 7-14 tablet by ity of mg tablet 00:00: mouth [place] 00 every 6 Medical (six) Branch hours as needed for Nausea and Vomiting (N/V). PNV 2021-0 Yes [id number] Take 1 Univers 102-iron-fo 7-14 TAB-CAP/M2 it y of late-dha 00:00: by mouth [place] (VITAFOL FE 00 daily. Medica l PLUS) 90 mg Branch iron- 1 mg-200 mg Cap metoclopram 0 Yes [id number] 10mg Take 1 Univers cheli HCl 10 7-14 tablet by ity of mg tablet 00:00: mouth [place] 00 every 6 Medical (six) Branch hours as needed for Nausea and Vomiting (N/V). PNV 0 Yes [id number] Take 1 Univers 102-iron-fo 7-14 TAB-CAP/M2 it y of late-dha 00:00: by mouth [place] (VITAFOL FE 00 daily. Medica l PLUS) 90 mg Branch iron- 1 mg-200 mg Cap metoclopram Yes [id number] 10mg Take 1 Univers cheli HCl 10 7-14 tablet by ity of mg tablet 00:00: mouth [place] 00 every 6 Medical (six) Branch hours as needed for Nausea and Vomiting (N/V). PNV Yes [id number] Take 1 Univers 102-iron-fo 7-14 TAB-CAP/M2 it y of late-dha 00:00: by mouth [place] (VITAFOL FE 00 daily. Medica l PLUS) 90 mg Branch iron- 1 mg-200 mg Cap metoclopram 0 Yes [id number] 10mg Take 1 Univers cheli HCl 10 7-14 tablet by ity of mg tablet 00:00: mouth [place] 00 every 6 Medical (six) Branch hours as needed for Nausea and Vomiting (N/V). PNV 0 Yes [id number] Take 1 Univers 102-iron-fo 7-14 TAB-CAP/M2 it y of late-dha 00:00: by mouth [place] (VITAFOL FE 00 daily. Medica l PLUS) 90 mg Branch iron- 1 mg-200 mg Cap metoclopram 0 Yes [id number] 10mg Take 1 Univers cheli HCl 10 7-14 tablet by ity of mg tablet 00:00: mouth [place] 00 every 6 Medical (six) Branch hours as needed for Nausea and Vomiting (N/V). PNV 2020-0 Yes [id number] Take 1 Univers 102-iron-fo 7-14 TAB-CAP/M2 it y of 00:00: by mouth [place] (VITAFOL FE 00 daily. Medica l PLUS) 90 mg Branch iron- 1 mg-200 mg Cap metoclopram Yes [id number] 10mg Take 1 Univers cheli HCl 10 7-14 tablet by ity of mg tablet 00:00: mouth [place] 00 every 6 Medical (six) Branch hours as needed for Nausea and Vomiting (N/V). PNV 2020-0 Yes [id number] Take 1 Univers 102-iron-fo 7-14 TAB-CAP/M2 it y of 00:00: by mouth [place] (VITAFOL FE 00 daily. Medica l PLUS) 90 mg Branch iron- 1 mg-200 mg Cap metoclopram Yes [id number] 10mg Take 1 Univers cheli HCl 10 7-14 tablet by ity of mg tablet 00:00: mouth [place] 00 every 6 Medical (six) Branch hours as needed for Nausea and Vomiting (N/V). PNV 202- No [id number] Take 1 Univer s 102-iron-fo 7-14 04-25 TAB-CAP/M2 i [place] of 00:00[place]VITAFOL FE 00 :00 daily. Medica l PLUS) 90 mg Branch iron- 1 mg-200 mg Cap metoclopram 2- No [id number] 10mg Take 1 Univers cheli HCl 10 7-14 04-25 tablet by ity of mg tablet 00:00: 00:00 mouth [place] 00 :00 every 6 Medical (six) Branch hours as needed for Nausea and Vomiting (N/V). Immunizations Ordered Filled Immunization Date Status Comments [facility] e Immunization Name Name TD 2021-05-21 Completed University of 00:00:00 [facility] TDAP 2021-05-21 Completed University of 00:00:00 [facility] TDAP 2021-05-21 Completed University of 00:00:00 [facility] TDAP 2021-05-21 Completed University of 00:00:00 [facility] TDAP 2021-05-21 Completed University of 00:00:00 [facility] TDAP 2021-05-21 Completed University of 00:00:00 [facility] TDAP 2021-05-21 Completed University of 00:00:00 [facility] TDAP 2021-05-21 Completed University of 00:00:00 [place] [facility] TDAP 2021-05-21 Completed University of 00:00:00 [facility] TDAP 2021-05-21 Completed University of 00:00:00 [facility] TDAP 2021-05-21 Completed University of 00:00:00 [facility] TDAP 2021-05-21 Completed University of 00:00:00 [facility] TDAP 2021-05-21 Completed University of 00:00:00 [facility] TDAP 2021-05-21 Completed University of 00:00:00 [facility] TDAP 2021-05-21 Completed University of 00:00:00 [facility] TDAP 2021-05-21 Completed University of 00:00:00 [facility] TDAP 2021-05-21 Completed University of 00:00:00 [facility] TDAP 2021-05-21 Completed University of 00:00:00 [facility] TDAP 2021-05-21 Completed University of 00:00:00 [facility] TDAP 2021-05-21 Completed University of 00:00:00 [facility] TDAP 2021-05-21 Completed University of 00:00:00 [facility] Influenza Virus 2021-03-22 Completed Universit y of Vaccine 00:00:00 [facility] Influenza Virus 2021-03-22 Completed Universit y of Vaccine 00:00:00 [facility] Influenza Virus 2021-03-22 Completed Universit y of Vaccine 00:00:00 [facility] Influenza Virus 2021-03-22 Completed Universit y of Vaccine 00:00:00 [facility] Influenza Virus 2021-03-22 Completed Universit y of Vaccine 00:00:00 [facility] Influenza Virus 2021-03-22 Completed Universit y of Vaccine 00:00:00 [facility] Influenza Virus 2021-03-22 Completed Universit y of Vaccine 00:00:00 [facility] Influenza Virus 2021-03-22 Completed Universit y of Vaccine 00:00:00 [facility] Influenza Virus 2021-03-22 Completed Universit y of Vaccine 00:00:00 [facility] Influenza Virus 2021-03-22 Completed Universit y of Vaccine 00:00:00 [place] [facility] Influenza Virus 2021-03-22 Completed Universit y of Vaccine 00:00:00 [facility] Influenza Virus 2021-03-22 Completed Universit y of Vaccine 00:00:00 [facility] Influenza Virus 2021-03-22 Completed Universit y of Vaccine 00:00:00 [facility] Influenza Virus 2021-03-22 Completed Universit y of Vaccine 00:00:00 [facility] Influenza Virus 2021-03-22 Completed Universit y of Vaccine 00:00:00 [facility] Influenza Virus 2021-03-22 Completed Universit y of Vaccine 00:00:00 [facility] Influenza Virus 2021-03-22 Completed Universit y of Vaccine 00:00:00 [facility] Influenza Virus 2021-03-22 Completed Universit y of Vaccine 00:00:00 [facility] Influenza Virus 2021-03-22 Completed Universit y of Vaccine 00:00:00 [facility] Influenza Virus 2021-03-22 Completed Universit y of Vaccine 00:00:00 [facility] Influenza Virus 2021-03-22 Completed Universit y of Vaccine 00:00:00 [facility] HPV9 2017-09-13 Completed University of 00:00:00 [facility] HPV9 2017-09-13 Completed University of 00:00:00 [facility] HPV9 2017-09-13 Completed University of 00:00:00 [facility] HPV9 2017-09-13 Completed University of 00:00:00 [facility] HPV9 2017-09-13 Completed University of 00:00:00 [facility] HPV9 2017-09-13 Completed University of 00:00:00 [facility] HPV9 2017-09-13 Completed University of 00:00:00 [facility] HPV9 2017-09-13 Completed University of 00:00:00 [facility] HPV9 2017-09-13 Completed University of 00:00:00 [facility] HPV9 2017-09-13 Completed University of 00:00:00 [facility] HPV9 2017-09-13 Completed University of 00:00:00 [facility] HPV9 2017-09-13 Completed University of 00:00:00 [facility] HPV9 2017-09-13 Completed University of 00:00:00 [facility] HPV9 2017-09-13 Completed University of 00:00:00 [facility] HPV9 2017-09-13 Completed University of 00:00:00 [facility] HPV9 2017-09-13 Completed University of 00:00:00 [facility] HPV9 2017-09-13 Completed University of 00:00:00 [place] [facility] HPV9 2017-09-13 Completed University of 00:00:00 [facility] HPV9 2017-09-13 Completed University of 00:00:00 [facility] HPV9 2017-09-13 Completed University of 00:00:00 [facility] HPV9 2017-09-13 Completed University of 00:00:00 [facility] MMR 2016-05-02 Completed University of 00:00:00 [facility] MMR 2016-05-02 Completed University of 00:00:00 [facility] MMR 2016-05-02 Completed University of 00:00:00 [facility] MMR 2016-05-02 Completed University of 00:00:00 [facility] MMR 2016-05-02 Completed University of 00:00:00 [facility] MMR 2016-05-02 Completed University of 00:00:00 [facility] MMR 2016-05-02 Completed University of 00:00:00 [facility] MMR 2016-05-02 Completed University of 00:00:00 [facility] MMR 2016-05-02 Completed University of 00:00:00 [facility] MMR 2016-05-02 Completed University of 00:00:00 [facility] MMR 2016-05-02 Completed University of 00:00:00 [facility] MMR 2016-05-02 Completed University of 00:00:00 [facility] MMR 2016-05-02 Completed University of 00:00:00 [facility] MMR 2016-05-02 Completed University of 00:00:00 [facility] MMR 2016-05-02 Completed University of 00:00:00 [facility] MMR 2016-05-02 Completed University of 00:00:00 [facility] MMR 2016-05-02 Completed University of 00:00:00 [facility] MMR 2016-05-02 Completed University of 00:00:00 [facility] MMR 2016-05-02 Completed University of 00:00:00 [facility] MMR 2016-05-02 Completed University of 00:00:00 [facility] MMR 2016-05-02 Completed University of 00:00:00 [facility] Influenza Virus 2016-03-21 Completed Universit y of Vaccine Quad IM 3+ 00:00:00 [facility] Influenza Virus 2016-03-21 Completed Universit y of Vaccine [facility] IM 3+ 00:00:00 [facility] Influenza Virus 2016-03-21 Completed Universit y of Vaccine [facility] IM 3+ 00:00:00 [facility] Influenza Virus 2016-03-21 Completed Universit y of Vaccine [facility] IM 3+ 00:00:00 [facility] Influenza Virus 2016-03-21 Completed Universit y of Vaccine [facility] IM 3+ 00:00:00 [facility] Influenza Virus 2016-03-21 Completed Universit y of Vaccine [facility] IM 3+ 00:00:00 [facility] Influenza Virus 2016-03-21 Completed Universit y of Vaccine [facility] IM 3+ 00:00:00 [facility] Influenza Virus 2016-03-21 Completed Universit y of Vaccine [facility] IM 3+ 00:00:00 [facility] Influenza Virus 2016-03-21 Completed Universit y of Vaccine [facility] IM 3+ 00:00:00 [facility] Influenza Virus 2016-03-21 Completed Universit y of Vaccine [facility] IM 3+ 00:00:00 [facility] Influenza Virus 2016-03-21 Completed Universit y of Vaccine [facility] IM 3+ 00:00:00 [facility] Influenza Virus 2016-03-21 Completed Universit y of Vaccine [facility] IM 3+ 00:00:00 [facility] Influenza Virus 2016-03-21 Completed Universit y of Vaccine [facility] IM 3+ 00:00:00 [facility] Influenza Virus 2016-03-21 Completed Universit y of Vaccine [facility] IM 3+ 00:00:00 [facility] Influenza Virus 2016-03-21 Completed Universit y of Vaccine [facility] IM 3+ 00:00:00 [facility] Influenza Virus 2016-03-21 Completed Universit y of Vaccine [facility] IM 3+ 00:00:00 [facility] Influenza Virus 2016-03-21 Completed Universit y of Vaccine [facility] IM 3+ 00:00:00 [facility] Influenza Virus 2016-03-21 Completed Universit y of Vaccine [facility] IM 3+ 00:00:00 [facility] Influenza Virus 2016-03-21 Completed Universit y of Vaccine [facility] IM 3+ 00:00:00 [facility] Influenza Virus 2016-03-21 Completed Universit y of Vaccine [facility] IM 3+ 00:00:00 [facility] Influenza Virus 2016-03-21 Completed Universit y of Vaccine Quad IM 3+ 00:00:00 [facility] TDAP 2016-03-07 Completed University of 00:00:00 [facility] TDAP 2016-03-07 Completed University of 00:00:00 [facility] TDAP 2016-03-07 Completed University of 00:00:00 [facility] TDAP 2016-03-07 Completed University of 00:00:00 [facility] TDAP 2016-03-07 Completed University of 00:00:00 [facility] TDAP 2016-03-07 Completed University of 00:00:00 [facility] TDAP 2016-03-07 Completed University of 00:00:00 [facility] TDAP 2016-03-07 Completed University of 00:00:00 [facility] TDAP 2016-03-07 Completed University of 00:00:00 [facility] TDAP 2016-03-07 Completed University of 00:00:00 [facility] TDAP 2016-03-07 Completed University of 00:00:00 [facility] TDAP 2016-03-07 Completed University of 00:00:00 [facility] TDAP 2016-03-07 Completed University of 00:00:00 [facility] TDAP 2016-03-07 Completed University of 00:00:00 [facility] TDAP 2016-03-07 Completed University of 00:00:00 [facility] TDAP 2016-03-07 Completed University of 00:00:00 [facility] TDAP 2016-03-07 Completed University of 00:00:00 [facility] TDAP 2016-03-07 Completed University of 00:00:00 [facility] TDAP 2016-03-07 Completed University of 00:00:00 [facility] TDAP 2016-03-07 Completed University of 00:00:00 [facility] TDAP 2016-03-07 Completed University of 00:00:00 [facility] Vital Signs Vital Name Observation Time Observation Value Comments Source Systolic blood 2021-10-07 21:45:00 108 mm[Hg] Univer sity of pressure [facility] Diastolic blood 2021-10-07 21:45:00 75 mm[Hg] Unive rsity of pressure [facility] Heart rate 2021-10-07 21:45:00 82 /min Universi ty of [facility] Body temperature 2021-10-07 21:45:00 37.11 [place] Univ ersity [facility] [place] [facility] Respiratory rate 2021-10-07 21:45:00 18 /min Univ [facility] [place] [facility] Body height 2021-10-07 21:45:00 154.9 cm Universi ty of [place] [facility] Body weight 2021-10-07 21:45:00 84.732 kg [facility]i ty [facility] [place] [facility] BMI 2021-10-07 21:45:00 35.30 kg/m2 [facility] ty [facility] [place] [facility] Systolic blood 2021-08-03 01:30:00 125 mm[Hg] Univer sity of pressure [place] [facility] Diastolic blood 2021-08-03 01:30:00 84 mm[Hg] Unive rsity of pressure [place] [facility] Heart rate 2021-08-03 01:30:00 78 /min Universi ty of [place] [facility] Body temperature 2021-08-03 01:30:00 36.89 [place] Univ ersity of [facility] Respiratory rate 2021-08-03 01:30:00 18 /min Univ ersity of [facility] Oxygen saturation in 2021-08-02 22:21:00 97 /min University of Arterial blood by [facility] Pulse oximetry Branch Body height 2021-08-01 13:18:00 154.9 cm Universi ty of [place] [facility] Body weight 2021-08-01 13:18:00 90.719 kg [facility]i [facility] [place] [facility] BMI 2021-08-01 13:18:00 37.79 kg/m2 [facility] [place] [facility] Body height 2021-08-01 13:18:00 154.9 cm [facility]i [facility] [place] [facility] Body weight 2021-08-01 13:18:00 90.719 kg [facility]i [facility] [place] [facility] BMI 2021-08-01 13:18:00 37.79 kg/m2 [facility] [place] [facility] Systolic blood 2021-08-01 13:05:00 114 mm[Hg] Univer sity of pressure [place] [facility] Diastolic blood 2021-08-01 13:05:00 71 mm[Hg] Unive rsity of pressure [facility] Heart rate 2021-08-01 13:05:00 96 /min Universi ty of [facility] Oxygen saturation in 2021-08-01 13:05:00 96 /min University of Arterial blood by [facility] Pulse oximetry Branch Respiratory rate 2021-08-01 13:00:00 18 /min Univ [facility] [place] [facility] Heart rate 2021-07-31 01:15:00 107 /min Universi ty of [place] [facility] Oxygen saturation in 2021-07-31 01:15:00 99 /min University of Arterial blood by [facility] Pulse oximetry Branch Systolic blood 2021-07-29 22:20:00 119 mm[Hg] Univer sity of pressure [place] [facility] Diastolic blood 2021-07-29 22:20:00 80 mm[Hg] Unive rsity of pressure [place] [facility] Heart rate 2021-07-29 22:20:00 85 /min Universi ty of [place] [facility] Body temperature 2021-07-29 22:20:00 36.78 [place] [facility] [place] [facility] Respiratory rate 2021-07-29 22:20:00 18 /min Univ [facility] [place] [facility] Body height 2021-07-29 22:20:00 154.9 cm [facility]i [facility] [place] [facility] Body weight 2021-07-29 22:20:00 90.266 kg Universi ty of [place] [facility] BMI 2021-07-29 22:20:00 37.60 kg/m2 [facility] [place] [facility] Systolic blood 2021-07-22 22:17:00 116 mm[Hg] Univer sity of pressure [place] [facility] Diastolic blood 2021-07-22 22:17:00 65 mm[Hg] Unive rsity of pressure [place] [facility] Heart rate 2021-07-22 22:17:00 103 /min [facility]i ty [facility] [place] [facility] Body temperature 2021-07-22 22:17:00 36.67 [place] [facility] [place] [facility] Respiratory rate 2021-07-22 22:17:00 18 /min Univ [facility] [place] [facility] Body height 2021-07-22 22:17:00 154.9 cm [facility] [place] [facility] Body weight 2021-07-22 22:17:00 91.627 kg [facility] [place] [facility] BMI 2021-07-22 22:17:00 38.17 kg/m2 [facility] [place] [facility] Systolic blood 2021-07-10 22:07:00 112 mm[Hg] Univer sity of pressure [place] [facility] Diastolic blood 2021-07-10 22:07:00 72 mm[Hg] Unive rsity of pressure [place] [facility] Heart rate 2021-07-10 22:07:00 88 /min [facility]i ty [facility] [place] [facility] Body temperature 2021-07-10 22:07:00 36.72 [place] [facility] [place] [facility] Respiratory rate 2021-07-10 22:07:00 18 /min Univ [facility] [place] [facility] Body height 2021-07-10 22:07:00 152.4 cm [facility] [place] [facility] Body weight 2021-07-10 22:07:00 90.266 kg [facility] [place] [facility] BMI 2021-07-10 22:07:00 38.86 kg/m2 [facility] [place] [facility] Systolic blood 2021-06-25 21:59:00 108 mm[Hg] Univer sity of pressure [place] [facility] Diastolic blood 2021-06-25 21:59:00 73 mm[Hg] Unive rsity of pressure [place] [facility] Heart rate 2021-06-25 21:59:00 102 /min [facility]i ty [facility] [place] [facility] Body temperature 2021-06-25 21:59:00 36.78 [place] [facility] [place] [facility] Respiratory rate 2021-06-25 21:59:00 18 /min Univ [facility] [place] [facility] Body height 2021-06-25 21:59:00 152.4 cm [facility] [place] [facility] Body weight 2021-06-25 21:59:00 89.812 kg [facility] [place] [facility] BMI 2021-06-25 21:59:00 38.67 kg/m2 [facility] [place] [facility] Systolic blood 2021-06-11 22:10:00 116 mm[Hg] Univer sity of pressure [place] [facility] Diastolic blood 2021-06-11 22:10:00 70 mm[Hg] Unive rsity of pressure [place] [facility] Heart rate 2021-06-11 22:10:00 120 /min [facility]i ty [facility] [place] [facility] Body temperature 2021-06-11 22:10:00 37.06 [place] [facility] [place] [facility] Body height 2021-06-11 22:10:00 152.4 cm [facility] [place] [facility] Body weight 2021-06-11 22:10:00 90.175 kg [facility] BMI 2021-06-11 22:10:00 38.83 kg/m2 [facility] Procedures Procedure Date / Time Performing Clinician Source Performed DME/SUPPLY JUSTIFICATION 2021-08-21 06:01:00 Doctor Unassigned, No [facility] CBC WITH DIFF 2021-08-02 09:42[facility] 2021-08-02 09:42:00 Rojelio Roach [facility] SECTION 2021-08-01 13[facility]51[facility]-01 13:51:00 Rojelio Roach [facility] [place] [facility] HOSPITAL ADMISSION 2021-08-01 06:01:00 Doctor Unassigned, No [facility] ASSIGNMENT OF BENEFITS 2021-07-31 22:41:25 Doctor Unassigned, No [facility] HB ABO GROUPING 2021-07-31 01:10:00 Rojelio Roach [facility] RHO (D) IMMUNE GLOBULIN 2021-07-31 01:10:00 Rojelio Roach [facility] RHO (D) IMMUNE GLOBULIN 2021-07-31 01:10:00 Rojelio Roach [facility] CBC WITH DIFF 2021-07-31 01:09:00 Rojelio Roach [facility] ADC CLC OR [facility] ONLY - 2021-07-31 00:59:00 Rojelio Roach [facility] WET PREP [facility] COVID-19 (ID NOW RAPID 2021-07-31 00:59:00 Rojelio Roach [facility] TESTING) Medical Branch CONSENT/REFUSAL FOR 2021-07-30 23:58:29 [facility] ASSIGNMENT OF BENEFITS 2021-07-30 23:57:57 Doctor Unassigned, No [facility] POCT URINALYSIS W/O 2021-07-29 00:00:00 Rojelio Roach [facility] SPECIFIC GRAVITY Medical Branch 3 HR GLUCOSE TOLERANCE 2021-07-26 18:33:00 [facility] [place] TEST [facility] 2 HR GLUCOSE TOLERANCE 2021-07-26 17:41:00 Sad[facility] [place] TEST Medical [facility] 1 HR GLUCOSE TOLERANCE 2021-07-26 16:41:00 Sad[facility] [place] TEST Medical Branch GLUCOSE FASTING 2021-07-26 15:33:00 Sadia Hansen o f [place] [facility] 3 HR GLUCOSE TOLERANCE 2021-07-26 15:33:00 Sad[facility] [place] PANEL Medical Branch CONSENT/REFUSAL FOR 2021-07-22 20:48:03 Doctor Unassigned, No [facility] [place] [facility] Name Medical Branch ASSIGNMENT OF BENEFITS 2021-07-22 20:47:49 Doctor Unassigned, No [facility] Name Medical Branch POCT URINALYSIS W/O 2021-07-22 00:00:00 Sadia Hansen [facility] [place] SPECIFIC GRAVITY Medical Branch >14 WEEKS US 2021-07-10 23:12:42 [facility] [place] LIMITED Medical Branch DSU PRE-OP 2021-07-10 06:01:00 [facility]igned, No [facility] [place] [facility] POCT URINALYSIS W/O 2021-07-10 00:00:00 Rojelio Roach [facility] [place] SPECIFIC GRAVITY Medical Branch POCT URINALYSIS W/O 2021-06-25 00:00:00 Sadia Hansen [facility] [place] SPECIFIC GRAVITY Medical Branch NOTICE OF PRIVACY 2021-06-12 19:42:38 Doctor Unassigned, No [facility] [place] [facility] Name Medical Branch NOTICE OF PRIVACY 2021-06-12 19:42:38 Doctor Unassigned, No [facility] [place] [facility] Name Medical Branch CONSENT/REFUSAL FOR 2021-06-12 19:42:24 Doctor Unassigned, No [facility] [place] [facility] Name Medical Branch CONSENT/REFUSAL FOR 2021-06-12 19:42:24 Doctor Unassigned, No [facility] [place] [facility]REAT[facility] Name Medical Branch ASSIGNMENT OF BENEFITS 2021-06-12 19:42:08 Doctor Unassigned, No [facility] ASSIGNMENT OF BENEFITS 2021-06-12 19:42:08 Doctor Unassigned, No [facility] POCT URINALYSIS W/O 2021-06-11 [facility]:00[facility] Encounters Start End Encounter Admission Attending Care Care Encounter Source Date/Time Date/Time Type Type Clinicians Facility Department ID 2021-07-30 Outpatient P [facility] SON [id number] Univers 20:33:16 [facility] 2019-08-04 Inpatient HCABM NEYMAR [id number] [facility] 10:11:00 [facility] 2022-04-08 2022-04-08 Outpatient Echo HANSEN [facility] [id number] Univers 13:30:00 13:30:00 SADIA [id number] [facility] 2022-04-08 2022-04-08 Outpatient Echo HANSEN [facility] [id number] Univers 13:30:00 13:30:00 SADIA [facility] 2021-11-29 2021-11-29 Outpatient Echo AVILA [facility] [id number] Univers 08:45:00 08:45:00 DARIUS [id number] [facility] 2021-11-29 2021-11-29 Outpatient Echo AVILA [facility] [id number] Univers 08:45:00 08:45:00 DARIUS [facility] 2021-11-14 2021-11-14 Outpatient ROJELIO FAULKNER [facility] [id number] Univers 14:00:00 14:00:00 [id number] [facility] 2021-11-14 2021-11-14 Outpatient ROJELIO FAULKNER [facility] [id number] Univers 14:00[facility] 2021-11-12 Outpatient ROJELIO FAULKNER [facility] [id number] Univers 15:30:00 15:30:00 [id number] [facility] 2021-11-12 2021-11-12 Outpatient R ROACHROJELIO [facility] [id number] Univers 15:30:00 15:30:00 ity [facility] 2021-10-28 2021-10-28 Outpatient R ROJELIO ROACH [facility] [id number] Univers 13:00:00 13:00:00 [id number] ity [facility] 2021-10-28 2021-10-28 Outpatient R ROACHROJELIO [facility] [id number] Univers 13:00:00 13:00:00 ity [facility] 2021-10-09 2021-10-09 Outpatient R SANTIAGOROSARIO [facility] [id number] 1N-20 Univers 13:15:00 13:15:00 SADIA [id number] ity [facility] 2021-10-09 2021-10-09 Outpatient R TYRONE [facility] [id number] Univers 13:15:00 13:15:00 [facility] 2021-10-07 2021-10-07 Outpatient R MARLEY ROJELIO [facility] [id number] Univers 16:00:00 17:07:46 ity [facility] 2021-10-07 2021-10-07 Routine Marley [facility] [id number] Univers 16:00:00 17:07:46 Cam ELADIA 350.1.13.10 ity of Visit [place] 4.2.7.2.686 [place] s PROFESSIO [phone] N[place] dical [address] 2021-10-07 2021-10-07 Outpatient R MARLEY ROJELIO [facility] [id number] 1N-20 Univers 16:00:00 16:00:00 [id number] ity [facility] 2021-09-10 2021-09-10 Outpatient R MARLEY ROJELIO [facility] [id number] 1N-20 Univers 14:00:00 14:00:00 [id number] ity [facility] 2021-09-10 2021-09-10 Outpatient R MARLEY ROJELIO [facility] [id number] Univers 14:00:00 14:00:00 ity [facility] 2021-08-21 2021-08-21 Telephone Rojelio Roach [facility] 1.2.840.114 [id number] Univers 00:00:00 00:00:00 Cam [place] 350.1.13.10 i ty [facility] 4.2.7.2.686 [place] [facility] [phone] N[place] dical [facility] [address] [facility] 2021-08-21 2021-08-21 Orders Doctor AURA 1.2.840.114 [id number] Univers 00:00:00 00:00:00 Only Unassigned, ANUJ 350.1.13.10 ity of [place] [facility] 4.2.7.2.686 [place] [phone] [facility] [address] 2021-08-19 2021-08-19 Outpatient R ROJELIO ROACH [facility] [id number] 1N-20 Univers 16:15:00 16:15:00 [id number] ity of [facility] 2021-08-19 2021-08-19 Outpatient R MARLEY [facility] [id number] Univers 16:15:00 16:15:00 ity of [facility] 2021-08-15 2021-08-15 Outpatient R MARLEY [facility] [id number] 1N-20 Univers 15:30:00 15:30:00 [id number] ity [facility] 2021-08-15 2021-08-15 Outpatient R MARLEY [facility] [id number] Univers 15:30:00 15:30:00 ity [facility] 2021-08-01 2021-08-02 Inpatient P MARLEY [facility] [id number] Univers 06:04:00 20:50:00 ity [facility] 2021-08-01 2021-08-02 Hospital Marley [facility] 1.2.840.114 [id number] Univers 06:04:00 20:50:00 Encounter Cam [place] 350.1.13.10 ity of [place]2.7.2.[place] C[place] [phone] [facility] [address] 2021-08-01 2021-08-01 [facility] [id number] [id number] Univers 08:00:00 09:25:00 Cam [place] 350.1.13.10 i ty of [place] 4.2.7.2.686 [facility] [phone] [facility] [address] 2021-08-01 2021-08-01 Orders Doctor AURA 1.2.840.114 [id number] Univers 00:00:00 00:00:00 Only Unassigned, ANUJ 350.1.13.10 ity of [place] [facility] 4.2.7.2.686 [place] [phone] [facility] [address] 2021-07-31 2021-07-31 Outpatient R [facility] [id number] -[id number] Univers 10:30:00 10:30:00 [id number] ity of [facility] 2021-07-31 2021-07-31 Outpatient R [facility] [id number] Univers 10:00:00 10:00:00 ity of [facility] 2021-07-31 2021-07-31 Orders Doctor AURA 1.2.840.114 [id number] Univers 00:00:00 00:00:00 Only Unassigned, ANUJ 350.1.13.10 ity of [place] [facility] 4.2.7.2.686 [place] [phone] [facility] [address] 2021-07-30 2021-07-30 Outpatient P ROJELIO ROACH [facility] SON [id number] Univers 17:56:00 20:15:00 ity of [facility] 2021-07-30 2021-07-30 [facility] 1.2.840.114 [id number] Univers 17:56:00 20:15:00 Encounter Cam ELADIA 350.1.13.10 ity of [place] 4.2.7.2.686 [facility] [phone] [facility] [address] 2021-07-29 2021-07-29 Outpatient R ROJELIO ROACH [facility] [id number] Univers 16:15:00 16:52:23 ity of [facility] 2021-07-29 2021-07-29 [facility]ine [facility] 1.2.144.153 [id number] Univers 16:15:00 16:52:23 Cam ELAD[place] 350.1.13.10 ity [place].2.[place] [phone] Nc dical NAL [address] [facility] 2021-07-29 2021-07-29 Outpatient R ROACH ROJELIO [facility] [id number] 1N-20 Univers 16:15:00 16:15:00 [id number] ity of [facility] 2021-07-26 2021-07-26 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 Ken Morales Lab Main [facility] 1.2.8 40.114 [id number] Univers 09:45:00 10:00:00 Visit Sadia Hansen 350.1.13.10 ity of [place].2.7.2.[place] [phone] Nc dical NAL [address] [facility] 2021-07-26 2021-07-26 Outpatient R [facility] [id number] -20 Univers 09:45:00 09:45:00 [id number] ity of [facility] 2021-07-26 2021-07-26 [facility] [id number] Univers 08:45:00 08:45:00 SADIA ity of [facility] 2021-07-25 2021-07-25 Outpatient R [facility] [id number] -[id number] Univers 08:00:00 08:00:00 [id number] ity of [facility] 2021-07-25 2021-07-25 Outpatient R [facility] [id number] Univers 08:00:00 08:00:00 ity of [facility] 2021-07-23 2021-07-23 Anuj Rojelio Roach [facility] 1.2.394.672 [id number] Univers 00:00:00 00:00:00 Management Jeremías MONTILLA 350.1.13.10 ity of [place].2.[place] [phone] Nc dical NAL [address] [facility] 2021-07-22 2021-07-22 Routine Tyrone [facility] 1.2.992.040 [id number] Univers 16:00:00 16:15:00 Sadia MONTILLA 350.1.13.10 ity [facility] 4.2.7.2.[place] [phone] Nc dical [facility] [address] [facility] 2021-07-22 2021-07-22 Outpatient R TYRONE [facility] [id number] Univers 16:00:00 16:00:00 SADIA ity [facility] 2021-07-22 2021-07-22 Outpatient R TYRONE [facility] [id number] 1N-20 Univers 15:30:00 15:30:00 SADIA [id number] ity [facility] 2021-07-22 2021-07-22 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 2, Adc Lab [facility] 1.2.840.114 [id number] Univers 15:30:00 15:30:00 Visit Rojelio Roach 350.1.13.10 it[place] of [place].2.[place] [phone] [facility] [address] [facility] 2021-07-22 2021-07-22 Orders Doctor AURA 1.2.840.114 [id number] Univers 00:00:00 00:00:00 Only Unassigned, ANUJ 350.1.13.10 ity of [place] [facility] 4.2.7.2.686 [place] [phone] [address] 2021-07-18 2021-07-18 Case Marley Rojelio [facility] 1.2.508.580 [id number] Univers 00:00:00 00:00:00 Management Jeremías MONTILLA 350.1.13.10 ity of [place].2.[place] [id number] Nc dical NAL [address] [facility] 2021-07-12 2021-07-12 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 Ultrasound, David-Mfm [facility] 1.2 .840.114 [id number] Univers 14:00:00 14:30:00 Visit Andrew Espinosa 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 350.1.13.1 0 ity of [facility] 4.2.7.2.686 [place] MATERNAL [phone] Med ical & CHILD [address] [place] [address] 2021-07-12 2021-07-12 Outpatient R [facility] [id number] -[id number] Univers 14:00:00 14:00:00 [id number] ity [facility] 2021-07-12 2021-07-12 Outpatient P ESPINOSA [facility] [id number] Univers 14:00:00 14:00:00 ANDREW ity [facility] 2021-07-10 2021-07-10 Outpatient R MARLEY [facility] [id number] Univers 15:30:00 16:44:21 ity [facility] 2021-07-10 2021-07-10 Routine Marley [facility] 1.2.754.637 [id number] Univers 15:30:00 16:44:21 Cam [place] 350.1.13.10 ity of [place] 4.2.7.2.686 [facility] [phone] [address] 2021-07-10 2021-07-10 Outpatient R MARLEY [facility] [id number] 1N-20 Univers 15:30:00 15:30:00 [id number] ity [facility] 2021-07-10 2021-07-10 Orders Doctor AURA 1.2.840.114 [id number] Univers 00:00:00 00:00:00 Only Unassigned, ANUJ 350.1.13.10 ity of [place] [facility] 4.2.7.2.686 [place] [phone] [address] 2021-07-03 2021-07-03 Outpatient R [facility] [id number] -[id number] Univers 08:30:00 08:30:00 [id number] ity [facility] 2021-07-03 2021-07-03 Outpatient R [facility] [id number] Univers 08:30:00 08:30:00 ity [facility] 2021-06-25 2021-06-25 Outpatient R TYRONE [facility] [id number] Univers 15:30:00 16:25:35 [facility] 2021-06-25 2021-06-25 Routine Tyrone [facility] 1.2.599.612 [id number] Univers 15:30:00 16:25:35 Sadia MONTILLA 350.1.13.10 ity of [place].2.[place] [phone] Nc dical [facility] [address] [facility] 2021-06-12 2021-06-12 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 2, Adc Lab [facility] 1.2.840.114 [id number] Univers 13:15:00 13:30:00 Visit Rojelio Roach 350.1.13.10 ity of [place].2.[place] [phone] Nc dicdc NAL [address] [facility] 2021-06-12 2021-06-12 Outpatient R ROJELIO ROACH [facility] [id number] Univers 13:15:00 13:15:00 ity of [facility] 2021-06-11 2021-06-11 Routine Rojelio Roach [facility] 1.2.962.835 [id number] Univers 15:45:00 16:26:43 Jeremías MONTILLA 350.1.13.10 ity of [place].2.[place] [phone] [facility] [address] [facility] Results Test Description Test Time Test Comments Results Result Comments Source CBC with Differential 2021-08-02 11:15:58 Test Item Value Reference Range Interpretation Comme nts WBC (test code = 6690-2) See_Comment [A utomated message] The system which Kofik[employer] nerated this result transmit trevor reference range: 4.30 - 1 1.10 10*3/?L. The reference r parag was not used to interpr et this result as normal/abnor mal. RBC (test code = 789-8) See_Comment [Au tomated message] The system which [employer] nerated this result transmit trevor reference range: 3.93 - 5 .25 10*6/?L. The reference r parag was not used to interpr et this result as normal/abnor mal. HGB (test code = 718-7) 11.1 g/dL 11.6-15.0 L HCT (test code = 4544-3) 34.4 % 35.7-45.2 L MCV (test code = 787-2) 87.3 fL 80.6-95.5 MCH (test code = 785-6) 28.2 pg 25.9-32.8 MCHC (test code = 786-4) 32.3 g/dL 31.6-35.1 RDW-SD (test code = 98198-2) 47.2 fL 39.0-49.9 RDW-CV (test code = 788-0) 14.6 % 12.0-15.5 PLT (test code = 777-3) See_Comment [Au tomated message] The system which ge nerated this result transmit trevor reference range: 166 - 35 8 10*3/?L. The reference range was not used to interpret th is result as normal/abnormal . MPV (test code = 06443-8) 10.6 fL 9.5-12.9 NRBC/100 WBC (test code = See_Comment [ Automated message] The 4570640537) system which ge nerated this result transmit trevor reference range: 0.0 - 10 .0 /100 WBCs. The reference r parag was not used to interpr et this result as normal/abnor mal. NRBC x10^3 (test code = <0.01 See_Comment [Au tomated message] The 5217513920) system which ge nerated this result transmit trevor reference range: 10*3/?L. The reference range was not u sed to interpret this result as normal/abnormal . GRAN MAT (NEUT) % (test code 69.5 % = 770-8) IMM GRAN % (test code = 0.40 % 5383391980) LYMPH % (test code = 736-9) 20.1 % MONO % (test code = 5905-5) 8.3 % EOS % (test code = 713-8) 1.4 % BASO % (test code = 706-2) 0.3 % GRAN MAT x10^3(ANC) (test 4.95 10*3/uL 1.88-7.09 code = 5217176045) IMM GRAN x10^3 (test code = 0.03 10*3/uL 0.00-0.06 2063221287) LYMPH x10^3 (test code = 1.43 10*3/uL 1.32-3.29 731-0) MONO x10^3 (test code = 0.59 10*3/uL 0.33-0.92 742-7) EOS x10^3 (test code = 0.10 10*3/uL 0.03-0.39 711-2) BASO x10^3 (test code = <0.03 0.01-0.07 704-7) Lab Interpretation (test Abnormal code = 90402-2) [facility] with [id number] 11:15:58 Test Item Value Reference Range Interpretation Comments WBC (test code = See_Comment [Automated 6690-2) message] The sy stem which generated this result transmitted reference range : 4.30 - 11.10 10*3/?L. The reference range was not used to interpret this result as normal/abnormal . RBC (test code = See_Comment [Automated 789-8) message] The sy stem which generated this result transmitted reference range : 3.93 - 5.25 10*6/?L. The reference range was not used to interpret this result as normal/abnormal . HGB (test code = 11.1 g/dL 11.6-15.0 L 718-7) HCT (test code = 34.4 % 35.7-45.2 L 4544-3) MCV (test code = 87.3 fL 80.6-95.5 787-2) MCH (test code = 28.2 pg 25.9-32.8 785-6) MCHC (test code = 32.3 g/dL 31.6-35.1 786-4) RDW-SD (test code = 47.2 fL 39.0-49.9 73128-7) RDW-CV (test code = 14.6 % 12.0-15.5 788-0) PLT (test code = See_Comment [Automated 777-3) message] The sy stem which generated this result transmitted reference range : 166 - 358 10*3/ ?L. The reference r parag was not used to interpret this result as normal/abnormal . MPV (test code = 10.6 fL 9.5-12.9 59758-3) NRBC/100 WBC (test See_Comment [Automat ed code = 5675721554) message] The system which generated this result transmitted reference range : 0.0 - 10.0 /100 WBCs. The refer ence range was not u sed to interpret th is result as normal/abnormal . NRBC x10^3 (test code <0.01 See_Comment [Auto mated = 5454932799) message] The s ystem which generated this result transmitted reference range : 10*3/?L. The reference range was not used to interpret this result as normal/abnormal . GRAN MAT (NEUT) % 69.5 % (test code = 770-8) IMM GRAN % (test code 0.40 % = 9349276090) LYMPH % (test code = 20.1 % 736-9) MONO % (test code = 8.3 % 5905-5) EOS % (test code = 1.4 % 713-8) BASO % (test code = 0.3 % 706-2) GRAN MAT x10^3(ANC) 4.95 10*3/uL 1.88-7.09 (test code = 8647422518) IMM GRAN x10^3 (test 0.03 10*3/uL 0.00-0.06 code = 8604625630) LYMPH x10^3 (test code 1.43 10*3/uL 1.32-3.29 = 731-0) MONO x10^3 (test code 0.59 10*3/uL 0.33-0.92 = 742-7) EOS x10^3 (test code = 0.10 10*3/uL 0.03-0.39 711-2) BASO x10^3 (test code <0.03 0.01-0.07 = 704-7) Lab Interpretation Abnormal (test code = 91229-0) [facility] (D) IMMUNE [id number] 20:14:21 Test Item Value Reference Range Interpretation Comments RHIG CANDIDATE? No- see comment Patient i s not a (test code = candidate for R hIg- 5055) Patient is Rh Positive.Perfor med at [facility] Laboratory Services - [facility] Blood [address] [place] [address]Fhgr Free: [phone] A No. [id number] [facility] (D) IMMUNE [id number] 20:14:21 Test Item Value Reference Range Interpretation Comments RHIG CANDIDATE? No- see comment Patient i s not a (test code = candidate for R [facility]- 5055) Patient is Rh Positive.Perfor med at [facility] Laboratory Services - [facility] Blood [address] [place] [address]Toll Free: [phone] A No. [id number] [facility] - ONCE [id number] 01:57:26 Test Item Value Reference Range Interpretation Comments ABO & RH (test code A Positive Performe d at [facility] = 20) Laboratory Serv [facility] Blood Bank1 [address] [place] [address]Toll Free: [phone] A No. [id number] IAT (test code = Negative Performed a t [facility] 1185) Laboratory Serv [facility] Blood [facility]1 [address]Toll Free: [phone] A No. [id number] [facility] HospitalCBC WITH [id number] 01:35:53 Test Item Value Reference Range Interpretation Comments WBC (test code = See_Comment [Automated 9190-2) message] The sy stem which generated this result transmitted reference range : 4.30 - 11.10 10*3/?L. The reference range was not used to interpret this result as normal/abnormal . RBC (test code = See_Comment [Automated 367-8) message] The sy stem which generated this result transmitted reference range : 3.93 - 5.25 10*6/?L. The reference range was not used to interpret this result as normal/abnormal . HGB (test code = 11.4 g/dL 11.6-15.0 L 718-7) HCT (test code = 34.7 % 35.7-45.2 L 4544-3) MCV (test code = 85.7 fL 80.6-95.5 787-2) MCH (test code = 28.1 pg 25.9-32.8 785-6) MCHC (test code = 32.9 g/dL 31.6-35.1 786-4) RDW-SD (test code = 46.4 fL 39.0-49.9 79416-8) RDW-CV (test code = 14.9 % 12.0-15.5 788-0) PLT (test code = See_Comment [Automated 777-3) message] The sy stem which generated this result transmitted reference range : 166 - 358 10*3/ ?L. The reference r parag was not used to interpret this result as normal/abnormal . MPV (test code = 10.1 fL 9.5-12.9 42830-3) NRBC/100 WBC (test See_Comment [Automat ed code = 4966207462) message] The system which generated this result transmitted reference range : 0.0 - 10.0 /100 WBCs. The refer ence range was not u sed to interpret th is result as normal/abnormal . NRBC x10^3 (test code <0.01 See_Comment [Auto mated = 8654643914) message] The s ystem which generated this result transmitted reference range : 10*3/?L. The reference range was not used to interpret this result as normal/abnormal . GRAN MAT (NEUT) % 73.0 % (test code = 770-8) IMM GRAN % (test code 0.50 % = 5392454026) LYMPH % (test code = 18.9 % 736-9) MONO % (test code = 6.6 % 5905-5) EOS % (test code = 0.8 % 713-8) BASO % (test code = 0.2 % 706-2) GRAN MAT x10^3(ANC) 4.79 10*3/uL 1.88-7.09 (test code = 8569218667) IMM GRAN x10^3 (test 0.03 10*3/uL 0.00-0.06 code = 9421877683) LYMPH x10^3 (test code 1.24 10*3/uL 1.32-3.29 L = 731-0) MONO x10^3 (test code 0.43 10*3/uL 0.33-0.92 = 742-7) EOS x10^3 (test code = 0.05 10*3/uL 0.03-0.39 711-2) BASO x10^3 (test code <0.03 0.01-0.07 = 704-7) Lab Interpretation Abnormal (test code = 63932-7) [facility] URINALYSIS W/O SPECIFIC [id number] 22:26:00 Test Item Value Reference Range Interpretation Comments POCT PH U (test code = 3254) negative 5-8 POCT U LEUK EST (test code = negative Negative - Negative 3263) POCT U NIT (test code = 3262) negative Negative - Negative POCT U PROT (test code = 3259) trace Negative - Negative POCT U GLU (test code = 3256) negative Negative - Negative POCT U KETONE (test code = 3258) negative Negative - Negative POCT U BLD (test code = 3257) negative Negative - Negative [facility] URINALYSIS W/O SPECIFIC [id number] 22:19:00 Test Item Value Reference Range Interpretation Comments POCT PH U (test code = 3254) n/a 5-8 POCT U LEUK EST (test code = 3263) n/a Negative - Negative POCT U NIT (test code = 3262) n/a Negative - Negative POCT U PROT (test code = 3259) neg Negative - Negative POCT U GLU (test code = 3256) neg Negative - Negative POCT U KETONE (test code = 3258) n/a Negative - Negative POCT U BLD (test code = 3257) n/a Negative - Negative Lab Interpretation (test code = Normal 29940-2) [facility] URINALYSIS W/O SPECIFIC [id number] 22:21:00 Test Item Value Reference Range Interpretation Comments POCT PH U (test code = 3254) N/A 5-8 POCT U LEUK EST (test code = N/A Negative - Negative 3263) POCT U NIT (test code = 3262) N/A Negative - Negative POCT U PROT (test code = 3259) Negative Negative - Negative POCT U GLU (test code = 3256) Negative Negative - Negative POCT U KETONE (test code = 3258) N/A Negative - Negative POCT U BLD (test code = 3257) N/A Negative - Negative [facility] URINALYSIS W/O SPECIFIC [id number] 22:01:00 Test Item Value Reference Range Interpretation Comments POCT PH U (test code = 3254) N/A 5-8 POCT U LEUK EST (test code = N/A Negative - Negative 3263) POCT U NIT (test code = 3262) N/A Negative - Negative POCT U PROT (test code = 3259) Negative Negative - Negative POCT U GLU (test code = 3256) Negative Negative - Negative POCT U KETONE (test code = 3258) N/A Negative - Negative POCT U BLD (test code = 3257) N/A Negative - Negative [facility]/O SPECIFIC [id number] 22:09:00 Test Item Value Reference Range Interpretation Comments POCT PH U (test code = 3254) n/a 5-8 POCT U LEUK EST (test code = n/a Negative - Negative 3263) POCT U NIT (test code = 3262) n/a Negative - Negative POCT U PROT (test code = 3259) negative Negative - Negative POCT U GLU (test code = 3256) normal Negative - Negative POCT U KETONE (test code = 3258) n/a Negative - Negative POCT U BLD (test code = 3257) n/a Negative - Negative [facility] [id number] 16:45:00 Test Item Value Reference Range Interpretation Comments UA COLOR (test code = YELLOW YELLOW COLU) UA APPEARANCE (test code Cloudy CLEAR A = APPU) UA GLUCOSE DIPSTICK (test NEGATIVE mg/dL NEGATIVE code = DGLUU) UA BILIRUBIN DIPSTICK NEGATIVE mg/dL NEGATIVE (test code = BILU) UA KETONE DIPSTICK (test 40 (2+) mg/dL NEGATIVE A code = KETU) UA SPECIFIC GRAVITY (test 1.045 1.001-1.035 code = SGU) UA BLOOD DIPSTICK (test 0.5 mg/dL (2+) mg/dL NEGATIVE A code = ROSENDO) UA PH DIPSTICK (test code 6.0 5.0-8.0 = MADONNA) UA PROTEIN DIPSTICK (test 70 (1+) mg/dL NEGATIVE A code = PROU) UA UROBILINIOGEN DIPSTICK Normal mg/dL NEGATIVE (test code = URO) UA NITRITE DIPSTICK (test NEGATIVE NEGATIVE code = KHADIJAH) UA LEUKOCYTE ESTERASE W NEGATIVE Roger/uL NEGATIVE REFLEX (test code = LEUUR) UA WBC (test code = WBCU) per HPF 0-5 UA RBC (test code = RBCU) per HPF 0-5 UA EPITHELIAL CELLS (test per HPF Few code = EPIU) UA BACTERIA (test code = per HPF NONE BACU) Urine Source? Clean CatchURINALYSIS [id number] 16:45:00 Test Item Value Reference Range Interpretation Comments UA COLOR (test code = YELLOW YELLOW COLU) UA APPEARANCE (test code Cloudy CLEAR A = APPU) UA GLUCOSE DIPSTICK (test NEGATIVE mg/dL NEGATIVE code = DGLUU) UA BILIRUBIN DIPSTICK NEGATIVE mg/dL NEGATIVE (test code = BILU) UA KETONE DIPSTICK (test 40 (2+) mg/dL NEGATIVE A code = KETU) UA SPECIFIC GRAVITY (test 1.045 1.001-1.035 code = SGU) UA BLOOD DIPSTICK (test 0.5 mg/dL (2+) mg/dL NEGATIVE A code = ROSENDO) UA PH DIPSTICK (test code 6.0 5.0-8.0 = MADONNA) UA PROTEIN DIPSTICK (test 70 (1+) mg/dL NEGATIVE A code = PROU) UA UROBILINIOGEN DIPSTICK Normal mg/dL NEGATIVE (test code = URO) UA NITRITE DIPSTICK (test NEGATIVE NEGATIVE code = KHADIJAH) UA LEUKOCYTE ESTERASE W NEGATIVE Roger/uL NEGATIVE REFLEX (test code = LEUUR) UA WBC (test code = WBCU) 0-5 per HPF 0-5 UA RBC (test code = RBCU) 0-2 #/HPF 0-5 UA EPITHELIAL CELLS (test MANY per HPF FEW code = EPIU) UA BACTERIA (test code = MANY #/HPF NONE A BACU) UA MUCUS (test code = MANY #/LPF FEW A MUCU) Urine Source? Clean CatchBASIC METABOLIC [id number] 11:59:00 Test Item Value Reference Range Interpretation Comments SODIUM (test code = 135 mmol/L 136-145 L NA) POTASSIUM (test code 3.7 mmol/L 3.5-5.1 N = K) CHLORIDE (test code = 106.0 mmol/L 98-107 N CL) CARBON DIOXIDE (test 25.0 mmol/L 21-32 N code = CO2) ANION GAP (test code 7.7 10-20 L = GAP) GLUCOSE (test code = 88 mg/dL 74-106 N GLU) BLOOD UREA NITROGEN 11 mg/dL 7-18 N (test code = BUN) GLOMERULAR FILTRATION > 60 mL/min >=60 Estima trevor GFR by RATE (test code = using Cammy fied MDRD GFR) formula.Chronic kidney disease is defined as eith er kidney damageor GFR <60 mL/min/1.73 m2 for >3 months. CREATININE (test code 0.70 mg/dL 0.55-1.02 N Note change in = CREAT) reference range due to change in reagent. BUN/CREATININE RATIO 15.7 10-20 N (test code = BUN/CREA) CALCIUM (test code = 8.6 mg/dL 8.5-10.1 N CA) HEPATIC FUNCTION [id number] 11:59:00 Test Item Value Reference Range Interpretation Comments TOTAL PROTEIN (test 7.8 gram/dL 6.4-8.2 N code = PROT) ALBUMIN (test code = 3.2 g/dL 3.4-5.0 L ALB) GLOBULIN (test code = 4.6 gram/dL 2.7-4.2 H GLOB) ALBUMIN/GLOBULIN RATIO 0.7 0.75-1.50 L (test code = A/G) BILIRUBIN TOTAL (test 0.30 mg/dL 0.0-1.0 N code = BILT) BILIRUBIN DIRECT (test 0.09 mg/dL 0.0-0.20 N code = BILD) SGOT/AST (test code = 11 IUnit/L 15-37 L AST) SGPT/ALT (test code = 16 IUnit/L 12-78 N ALT) ALKALINE PHOSPHATASE 90 IUnit/L 45-117 N Note change in TOTAL (test code = reference range due ALKP) to change in reagent. HCG SERUM [id number] 11:59:00 Test Item Value Reference Range Interpretation Comments HCG SERUM BETA 8832.0 mIU/mL 0-3 H Interfering substances (test code = present in the serum of HCG) somepatients ma y cause a false-positive result in this assay.Ques tionable elevations in s kathy hCG should be confi rmedwith a urine hCG. Pierre spected Trophoblastic N eoplasms shouldnot be di agnosed based on serun hCG/beta hCG alone. They must be confirmed by cl inical history and tis meaghan diagnosis.INTER PRETATION :B-HCG LEVELS < 5 SHOULD BE CONSIDERED A S "NEGATIVE." *WH EN BODERLINE RESUL TS ARE ENCOUNTERED,PAT IENT SAMPLESSHOULD B E REDRAWN 48 HOURS. 0-1 WEEKS AFTER CONCEPTIO N 5-50 MIU/ML1-2 WEEKS AFTER CONCEPTION 50-500 MIU/ ML2-3 WEEKS AFTER CON CEPTION 100 - 5,000 MIU/ML3-4 WEEKS AFTER CONCEPTION 500-10,000 MIU /ML4-5 WEEKS AFTER CON CEPTION 1000 -50 ,000 MIU/ML5-6 WEEKS AFTER CONCEPTION 10,000-100,000 MIU/ML6-8 WEEKS AFTER CONCEPTION 15,000- 200,000 MIU/ML2-3 MONTH S AFTER CONCEPTION 10,000-100,000 MIU/ML CBC W/O [id number] 11:40:00 Test Item Value Reference Range Interpretation Comments WHITE BLOOD CELL (test code = 12.5 K/mm3 4.5-12.5 N WBC) RED BLOOD CELL (test code = 4.73 mill/mm3 3.7-5.2 N RBC) HEMOGLOBIN (test code = HGB) 14.1 gram/dL 11.5-15.5 N HEMATOCRIT (test code = HCT) 41.8 % 36.0-46.0 N MEAN CELL VOLUME (test code = 88.4 fL 80-98 N MCV) MEAN CELL HGB (test code = MCH) 29.8 picogram 27.0-33.0 N MEAN CELL HGB CONCETRATION 33.7 gram/dL 33.0-36.0 N (test code = MCHC) RED CELL DISTRIBUTION WIDTH 13.8 % 11.6-16.2 N (test code = RDW) PLATELET COUNT (test code = 249 K/mm3 150-450 N PLT) MEAN PLATELET VOLUME (test code 10.8 fL 6.7-11.0 N = MPV) BASIC METABOLIC [id number] 11:38:00 Test Item Value Reference Range Interpretation Comments SODIUM (test code = NA) 135 mmol/L 136-145 L POTASSIUM (test code = K) 3.7 mmol/L 3.5-5.1 N CHLORIDE (test code = CL) 106.0 mmol/L 98-107 N CARBON DIOXIDE (test code = CO2) mmol/L 21-32 ANION GAP (test code = GAP) 10-20 GLUCOSE (test code = GLU) mg/dL 74-106 BLOOD UREA NITROGEN (test code = mg/dL 7-18 BUN) GLOMERULAR FILTRATION RATE (test mL/min >=60 code = GFR) CREATININE (test code = CREAT) mg/dL 0.55-1.02 BUN/CREATININE RATIO (test code 10-20 = BUN/CREA) CALCIUM (test code = CA) mg/dL 8.5-10.1 HEPATIC FUNCTION [id number] 11:38:00 Test Item Value Reference Range Interpretation Comments TOTAL PROTEIN (test code = PROT) gram/dL 6.4-8.2 ALBUMIN (test code = ALB) g/dL 3.4-5.0 GLOBULIN (test code = GLOB) gram/dL 2.7-4.2 ALBUMIN/GLOBULIN RATIO (test code = 0.75-1.50 A/G) BILIRUBIN TOTAL (test code = BILT) mg/dL 0.0-1.0 BILIRUBIN DIRECT (test code = BILD) mg/dL 0.0-0.20 SGOT/AST (test code = AST) IUnit/L 15-37 SGPT/ALT (test code = ALT) IUnit/L 12-78 ALKALINE PHOSPHATASE TOTAL (test IUnit/L 45-117 code = ALKP) HCG SERUM [id number] 11:38:00 Test Item Value Reference Range Interpretation Comments HCG SERUM BETA (test code = HCG) mIU/mL 0-3 - US PREG AFTER [id number] 11:36:00 Name: YENNY TOPETE [facility] : 1995 Age/S: 23 / F [address] Unit #: [id number] Loc: [facility] [id number] Phys: Angy Hooper NP Acct: [id number] Dis Date: Status: REG ER PHONE #: [phone] Exam Date: 08/04/2019 1108 FAX #: [phone] Reason: bleed in pregnnacy EXAMS: CPTCODE: [id number] US PREG AFTER [id number] REASON FOR EXAM: bleed in pregnnacy EXAM ORDER DATE: 08/04/2019 11:16 AM Attending Yady: Angy Hooper NP PROCEDURE: - US PREG AFTER FINDINGS: The cervix is closed. heart rate is 143 beats per minute. presentation is cephalic. The placenta is anterior and is of grade 0. BPD: 4.90cm (20w6d) HC: 17.65cm (20w1d) AC: 15.70cm (20w6d) FL: 3.31cm (20w2d) Estimated weight is 13 oz +/- 2 oz. anatomy is grossly unremarkable withfetal posterior fossa, bilateral ventricles, 4-chambered heart, stomach, kidneys, spine, 3 vessel cord, cord insertion, bladder, and extremities are within normal limits. IMPRESSION: A single viable IUP with estimated age of 20 weeks 4 days +/-1 week 3 days . Estimated delivery date is December 18, 2019. Location: [facility] Electronically Signedby Abdifatah Posadas MD on 08/04/2019 at 1136 Reported and signed by: Abdifatah Posadas MD CC: Reese Blas MD; Angy Hooper NP Technologist: Sylvia Zaldivar RDMS Trnscb Date/Time: 08/04/2019 (113) [email or web address] Orig Print D/T: S: 08/04/2019 (1130) Probe: PAGE 1 Signed ReportURINALYSIS [id number] 11:16:00 Test Item Value Reference Range Interpretation Comments UA COLOR (test code = YELLOW YELLOW COLU) UA APPEARANCE (test code Cloudy CLEAR A = APPU) UA GLUCOSE DIPSTICK (test NEGATIVE mg/dL NEGATIVE code = DGLUU) UA BILIRUBIN DIPSTICK NEGATIVE mg/dL NEGATIVE (test code = BILU) UA KETONE DIPSTICK (test 10 (1+) mg/dL NEGATIVE A code = KETU) UA SPECIFIC GRAVITY (test 1.038 1.001-1.035 code = SGU) UA BLOOD DIPSTICK (test 0.5 mg/dL (2+) mg/dL NEGATIVE A code = ROSENDO) UA PH DIPSTICK (test code 6.0 5.0-8.0 = MADONNA) UA PROTEIN DIPSTICK (test 50 (1+) mg/dL NEGATIVE A code = PROU) UA UROBILINIOGEN DIPSTICK Normal mg/dL NEGATIVE (test code = URO) UA NITRITE DIPSTICK (test NEGATIVE NEGATIVE code = KHADIJAH) UA LEUKOCYTE ESTERASE W NEGATIVE Roger/uL NEGATIVE REFLEX (test code = LEUUR) UA WBC (test code = WBCU) 0-5 per HPF 0-5 UA RBC (test code = RBCU) 0-2 #/HPF 0-5 UA EPITHELIAL CELLS (test MANY per HPF FEW code = EPIU) UA BACTERIA (test code = FEW #/HPF NONE A BACU) UA MUCUS (test code = MANY #/LPF FEW A MUCU) Urine Source? Clean Catch
[2021-12-07] MEDS ORDERED: HYDROCODONE/APAP 5/325 MG TAB ONE (10:27)
--- NOTE | 2021-12-07 11:17 | RAD REPORT ---
EXAM DESCRIPTION: RAD - Hand Right 3 View - 12/07/2021 11:07 am CLINICAL HISTORY: SMASH INJURY COMPARISON: No comparisons FINDINGS/IMPRESSION: Minimally displaced of the middle finger distal phalanx, just proximal to the t uft. No intra-articular extension. Mild angulation.
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
--- NOTE | 2021-12-07 11:41 | ER ---
Nurse's Notes [facility] Name: Lucille Man Age: 26 yrs Sex: Female : 1995 Arrival Date: 12/07/2021 Time: 09:50 Bed 12 Private MD: Diagnosis: Displaced fracture of distal phalanx of right middle finger-Closed, minimally displaced Presentation: 12/07 09:58 Chief complaint: Patient states: Right middle finger smashed last night and it's jl7 swollen and throbbing. Coronavirus screen: At this time, the client does not indicate any symptoms associated with coronavirus-19. Ebola Screen: No symptoms or risks identified at this time. Initial Sepsis Screen: Does the patient meet any 2 criteria? No. Patient's initial sepsis screen is negative. Does the patient have a suspected source of infection? No. Patient's initial sepsis screen is negative. Risk Assessment: Do you want to hurt yourself or someone else? Patient reports no desire to harm self or others. Onset of symptoms was December 06, 2021. 09:58 Method Of Arrival: Ambulatory jl7 09:58 Acuity: SYLVESTER 4 jl7 Triage Assessment: 09:59 General: Appears in no apparent distress. uncomfortable, Behavior is calm, cooperative, jl7 appropriate for age, crying. Pain: Complains of pain in right middle finger Pain currently is 10 out of 10 on a pain scale. Musculoskeletal: Range of motion: limited in DIP of right middle finger and PIP of right middle finger Swelling present in right middle finger. Injury Description: Bruise sustained to right middle finger. 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 - Social history:: Smoking status: Patient denies any tobacco usage or history of. Screenin:30 Abuse screen: Denies threats or abuse. Denies injuries from another. Nutritional jl7 screening: No deficits noted. Tuberculosis screening: No symptoms or risk factors identified. Fall Risk None identified. Vital Signs: 09:58 BP 128 / 88; Pulse 93; Resp 17; Temp 98.3; Pulse Ox 97% ; Weight 83.46 kg; Height 5 ft. jl7 (152.40 cm); Pain 10; 09:58 Body Mass Index 35.93 (83.46 kg, 152.40 cm) jl7 ED Course: 09:50 Patient arrived in ED. as 09:59 Triage completed. jl7 09:59 Arm band placed on right wrist. Patient placed in waiting room, Patient notified of jl7 wait time. 10:11 Taqueria Cuevas NP is PHCP. pm1 10:11 Forrest Christianson MD is Attending Physician. pm1 10:30 Neal Najera RN is Primary Nurse. jl7 11:09 Hand Right 3 View XRAY In Process Unspecified. EDMS 11:25 Primary Nurse role handed off by Neal Najera RN jl7 11:30 Patient has correct armband on for positive identification. jl7 11:30 No provider procedures requiring assistance completed. Patient did not have IV access jl7 during this emergency room visit. aluminum finger splint. 11:41 Kamaljit Valdovinos MD is Referral Physician. pm1 11:53 Neal Najera RN is Primary Nurse. jl7 Administered Medications: 10:20 Drug: HYDROcodone-acetaminophen 5 mg-325 mg 1 tabs Route: PO; jl7 10:50 Follow up: Response: No adverse reaction; Pain is decreased jl7 Medication: 12:33 VIS not applicable for this client. jl7 Outcome: 11:40 Discharge ordered by MD. pm1 12:33 Discharged to home ambulatory. jl7 12:33 Condition: stable 12:33 Discharge instructions given to patient, Instructed on discharge instructions, follow up and referral plans. Demonstrated understanding of instructions, follow-up care. 12:33 Instructed on medication usage, Demonstrated understanding of medications. jl7 12:33 Patient left the ED. jl7 Signatures: Dispatcher [employer] EDMS Jessica Hahn as Taqueria Cuevas NP INTERNAL COMMUNICATIONS INTERN pm1 Neal Najera, MICHAELA RN jl7 Corrections: (The following items were deleted from the chart) 10:00 09:59 LMP 12/07/2021 jl7 jl7
[2021-12-07 13:21] VITALS: BP 128/88; TEMP 98.3; O2SAT 97
== END 2021-12-07 12:33 | disposition home or self-care (01) ==
LOC: ER 09:48
PROC: 2W3JX1Z Immobilization of Right Finger using Splint (ICD-10-PCS; principal; 2021-12-07)
DX: S62.632A Displaced fracture of distal phalanx of right middle finger, initial encounter for closed fracture (principal)
CPT/HCPCS: 99283

== ENCOUNTER 2022-04-13 18:39 | Emergency (ER) | payer OTHER ==
--- OUTSIDE RECORDS SUMMARY | 2022-04-13 18:50 | XMS REPORT | Continuity of Care Document ---
:1995 Author Organization [facility] [place] [facility] t Address [address] [place] [address] Care Team Providers Name Role Phone PCP, PATIENT DOES NOT HAVE A Primary Care Physician UnavailSADIA Miramontes Attending Clinician Unavailable MARGIE BARNES Attending Clinician Unavailable DARIUS AVILA Attending Clinician Unavailable ROJELIO ROACH Attending Clinician Unavailable Rojelio Roach MD Attending Clinician Doctor Unassigned, [place] Attending Clinician Unavailable Pob, [facility] Main Attending Clinician Unavailable Sadia Hansen PA-C Attending Clinician 2, [facility] Attending Clinician Unavailable Ultrasound, Ang-Mfm Attending Clinician Unavailable Andrew Espinosa MD Attending Clinician ANDREW ESPINOSA Attending Clinician Unavailable Beatriz Lockwood DO Attending Clinician ROJELIO ROACH Admitting Clinician Unavailable Rojelio Roach MD Admitting Clinician Payers Payer Name Policy Type Policy Number Effective Date Expiration Date S ource [facility] ESTER [id number] 2020 00:00:00 Problems Condition Condition Condition Status Onset Resolution Last Treating Co mments Source Name Details Category Date Date Treatment Clinician Date Liveborn Liveborn Disease Active Unive rs , of , of 2-18 [place] y of [place] , [place] born in born in [facility] hospital by by delivery delivery 39 weeks 39 weeks Disease Active Unive rs gestation gestation 2-17 ity of of of 00:00: [place] 00 [facility] 38 weeks 38 weeks Disease Active Unive rs gestation gestation 2-16 ity of of of 00:00: [place] 00 [facility] High risk High risk Disease Active 2020-06 Uni vers , , 2-28 [place] [facility] Abnormal Abnormal Disease Active 2020-06 Unive rs maternal maternal 2-07 ity of glucose glucose 00:00: [place] tolerance, tolerance, 00 Me dical antepartum antepartum Br anch History of History of Disease Active U nivers anxiety anxiety 3-31 ity of 00:00: [place] [facility] Asthma Asthma Disease Active Univers affecting affecting 3-31 [place] , , [place] [facility] Ob[facility] Disease Active Univers (BMI (BMI 3-30 ity of 30-39.9) 30-39.9) 00:00: [place] [facility] H/O H/O Disease Active Univers 3-30 ity of section section 00:00: [place] [facility] Immune to Immune to Disease Active Uni vers varicella varicella 7-22 ity of 00:00: [place] [facility] [place] [facility] Family Disease Active Univers history of history of 5-27 it y of spina spina 00:00: [place] bifida bifida 00 [facility] Allergies, Adverse Reactions, Alerts Allergy Allergy Status Severity Reaction(s) Onset Inactive Treating Comm ents Source Name Type Date Date Clinician No Known DA Active U [facility]ie 2-20 [place] 00:[facility]: e 00 [facility] No Known DA Active U 0 [facility] All[facility]ie 2-20 [facility] NO KNOWN Drug Active Univers ALLERGIE Class ity of [facility] Social History Social Habit Start Date Stop Date Quantity Comments Source ASSERTION 2020-11-15 University 00:00:00 [facility] Exposure to Not sure University SARS-CoV-[address] [facility] (event) Branch Alcohol intake 2021-10-07 2021-10-07 Current [facility] 00:00:00 00:00:00 non-drinker of [facility] alcohol Branch (finding) Tobacco use and 2015-11-09 2015-11-09 Never used Universit y of exposure 00:00:00 00:00:00 [facility] Sex Ass[birth year] At [birth year] Universit y of 00:00:00 00:00:00 [facility] Smoking Status Start Date Stop Date Source Never smoker [facility] Medications Ordered Filled Start Stop Current Ordering Indication Dosage Frequency Signature Comments Components Source Medication Medication Date Date Medication? Clinician (SIG) Name Name miSOPROStoL Yes [id number] 200ug Take 1 Univers 200 mcg 4-25 tablet by ity of tablet 00:00: mouth [place] 00 SEE-INSTRU Medical CTIONS. Branch Take one tab the night before and one tab the morning of procedure busPIRone 5 Yes [id number] 5mg Take 1 Univers mg tablet 4-25 tablet by ity o f 00:00: mouth 2 [place] 00 (two) Medical times Branch daily. ibuprofen Yes 600mg 600 mg, Univ ers (IBU) 2-19 Oral, Q6H ity of tablet 600 06:00: ABX, First [place] mg 00 dose on Medical Sat Branch 08/03/21 at 0000, Until Discontinu ed, Routine ibuprofen Yes 600mg 600 mg, Univ ers (IBU) 2-19 Oral, Q6H ity of tablet 600 06:00: ABX, First [place] mg 00 dose on Medical Sat Branch 08/03/21 at 0000, Until Discontinu ed, Routine HYDROcodone Yes 1{tbl} 1 tablet, Univers -acetaminop 2-18 Oral, ity of hen (NORCO) 06:00: Q6HPRN, [place] as 10-325 mg 00 Starting Medica l tablet 1 on Fri Branch tablet 08/02/21 at 0000, Until Discontinu ed, Routine, Pain (scale 7-10) HYDROcodone Yes 1{tbl} 1 tablet, Univers -acetaminop 2-18 [...] Last dose on Thu08/02/21 at 1800, Routine
hospitality team member approving Restricted medication : ROJELIO ROACH JEREMÍAS ketorolac 2021- No 30mg 30 mg, Unive rs (TORADOL) 08-02 Slow IV ity of injection 06:00: 00:45 [place], Q6H [place] 30 mg 00 :00 ABX, 4 Medical doses, Branch First dose on Thu08/02/21 at 0000, Last dose on Thu08/02/21 at 1800, Routine
hospitality team member approving Restricted medication : ROJELIO [...] at 2200, Until Discontinu ed, Routine acetaminoph 0 Yes [id number] 650mg Take 2 Univers en 325 mg 2-18 tablets by ity of tablet 00:00: mouth [place] 00 every 6 Medical (six) Branch hours as needed for Pain (scale 1-3) or Pain (scale 4-6). 0 Yes [id number] 1{tbl} Take 1 Univers vitamin 2-18 tablet by ity of w/FA tablet 00:00: mouth [place] 00 daily. Medical Branch docusate Yes [id number] 240mg Take 1 U nivers calcium 240 2-18 capsule by it y of mg capsule 00:00: mouth once [place] 00 daily as Medical needed for Branch Constipati on. ferrous Yes [id number] 325mg Take 1 Un janny sulfate 325 2-18 tablet by ity of mg (65 mg 00:00: mouth 2 [place] iron) 00 (two) Medical tablet times Branch daily. ibuprofen Yes [id number] 600mg Take 1 Univers 600 mg 2-18 tablet by ity of tablet 00:00: mouth [place] 00 every 6 Medical (six) Branch hours as needed (Pain). Take with food or milk. acetaminoph Yes [id number] 650mg Take 2 Univers en 325 mg 2-18 tablets by ity of tablet 00:00: mouth [place] 00 every 6 Medical (six) Branch hours as needed for Pain (scale 1-3) or Pain (scale 4-6). Yes [id number] 1{tbl} Take 1 Univers vitamin 2-18 tablet by ity of w/FA tablet 00:00: mouth [place] 00 daily. Medical Branch docusate Yes [id number] 240mg Take 1 U nivers calcium 240 2-18 capsule by it y of mg capsule 00:00: mouth once [place] 00 daily as Medical needed for Branch Constipati on. ferrous Yes [id number] 325mg Take 1 Un janny sulfate 325 2-18 tablet by ity of mg (65 mg 00:00: mouth 2 [place] iron) 00 (two) Medical tablet times Branch daily. ibuprofen Yes [id number] 600mg Take 1 Univers 600 mg 2-18 tablet by ity of tablet 00:00: mouth [place] 00 every 6 Medical (six) Branch hours as needed (Pain). Take with food or milk. acetaminoph Yes [id number] 650mg Take 2 Univers en 325 mg 2-18 tablets by ity of tablet 00:00: mouth [place] 00 every 6 Medical (six) Branch hours as needed for Pain (scale 1-3) or Pain (scale 4-6). Yes [id number] 1{tbl} Take 1 Univers vitamin 2-18 tablet by ity of w/FA tablet 00:00: mouth [place] 00 daily. Medical Branch docusate Yes [id number] 240mg Take 1 U nivers calcium 240 2-18 capsule by it y of mg capsule 00:00: mouth once [place] 00 daily as Medical needed for Branch Constipati on. ferrous Yes [id number] 325mg Take 1 Un janny sulfate 325 2-18 tablet by ity of mg (65 mg 00:00: mouth 2 [place] iron) 00 (two) Medical tablet times Branch daily. ibuprofen Yes [id number] 600mg Take 1 Univers 600 mg 2-18 tablet by ity of tablet 00:00: mouth [place] 00 every 6 Medical (six) Branch hours as needed (Pain). Take with food or milk. acetaminoph Yes [id number] 650mg Take 2 Univers en 325 mg 2-18 tablets by ity of tablet 00:00: mouth [place] 00 every 6 Medical (six) Branch hours as needed for Pain (scale 1-3) or Pain (scale 4-6). Yes [id number] 1{tbl} Take 1 Univers vitamin 2-18 tablet by ity of w/FA tablet 00:00: mouth [place] 00 daily. Medical Branch docusate Yes [id number] 240mg Take 1 U nivers calcium 240 2-18 capsule by it y of mg capsule 00:00: mouth once [place] 00 daily as Medical needed for Branch Constipati on. ferrous Yes [id number] 325mg Take 1 Un janny sulfate 325 2-18 tablet by ity of mg (65 mg 00:00: mouth 2 [place] iron) 00 (two) Medical tablet times Branch daily. ibuprofen Yes [id number] 600mg Take 1 Univers 600 mg 2-18 tablet by ity of tablet 00:00: mouth [place] 00 every 6 Medical (six) Branch hours as needed (Pain). Take with food or milk. acetaminoph Yes [id number] 650mg Take 2 Univers en 325 mg 2-18 tablets by ity of tablet 00:00: mouth [place] 00 every 6 Medical (six) Branch hours as needed for Pain (scale 1-3) or Pain (scale 4-6). Yes [id number] 1{tbl} Take 1 Univers vitamin 2-18 tablet by ity of w/FA tablet 00:00: mouth [place] 00 daily. Medical Branch docusate Yes [id number] 240mg Take 1 U nivers calcium 240 2-18 capsule by it y of mg capsule 00:00: mouth once [place] 00 daily as Medical needed for Branch Constipati on. ferrous Yes [id number] 325mg Take 1 Un janny sulfate 325 2-18 tablet by ity of mg (65 mg 00:00: mouth 2 [place] iron) 00 (two) Medical tablet times Branch daily. ibuprofen Yes [id number] 600mg Take 1 Univers 600 mg 2-18 tablet by ity of tablet 00:00: mouth [place] 00 every 6 Medical (six) Branch hours as needed (Pain). Take with food or milk. Yes [id number] 1{tbl} Take 1 Univers vitamin 2-18 tablet by ity of w/FA tablet 00:00: mouth [place] 00 daily. Medical Branch ferrous Yes [id number] 325mg Take 1 Un janny sulfate 325 2-18 tablet by ity of mg (65 mg 00:00: mouth 2 [place] iron) 00 (two) Medical tablet times Branch daily. acetaminoph 2021- No [id number] 650mg Take 2 Univers en 325 mg 2-18 04-25 tablets by ity of tablet 00:00: 00:00 mouth [place] 00 :00 every 6 Medical (six) Branch hours as needed for Pain (scale 1-3) or Pain (scale 4-6). docusate 2021- No [id number] 240mg Take 1 Univers calcium 240 2-18 04-25 capsule by i ty of mg capsule 00:00: 00:00 mouth once [place] 00 :00 daily as Medical needed for Branch Constipati on. ibuprofen 2021- No [id number] 600mg Take 1 Univers 600 mg 2-18 04-25 tablet by ity of tablet 00:00: 00:00 mouth [place] 00 :00 every 6 Medical (six) Branch hours as needed (Pain). Take with food or milk. HYDROcodone No [id number] 1{tbl} Take 1 U nivers [...] 7 days. Indication s: acute pain HYDROcodone No [id number] 1{tbl} Take 1 U nivers -acetaminop 2-18 02-26 tablet by it y of hen 10-325 00:00: 05:59 mouth [place] mg tablet 00 :00 every 6 Medical (six) Branch hours as needed for Pain (scale 7-10) for up to 7 days. Indication s: acute pain gabapentin 2021- No [id number] 300mg Take 1 Univers 300 mg 2-18 02-24 capsule by ity of capsule 00:00: 05:59 mouth 3 [place] 00 :00 (three) Medical times Branch daily for 5 days. gabapentin 2021- No [id number] 300mg Take 1 Univers 300 mg 2-18 02-24 capsule by ity of capsule 00:00: 05:59 mouth 3 [place] 00 :00 (three) Medical times Branch daily for 5 days. gabapentin 2021-2021- No [id number] 300mg Take 1 Univers 300 mg 2-18 02-24 capsule by ity of capsule 00:00: 05:59 mouth 3 [place] 00 :00 (three) Medical times Branch daily for 5 days. gabapentin Yes 300mg 300 mg, Uni vers (NEURONTIN) 2-17 Oral, TID, it y of capsule 300 20:00: First dose [place] mg 00 on [facility] 08/01/21 at Branch 1400, Until Discontinu ed, Routine gabapentin 0 Yes 300mg 300 mg, Uni vers (NEURONTIN) 17 Oral, TID, it y of capsule 300 20:00: First dose [place] mg 00 on [facility] 08/01/21 at Branch 1400, Until Discontinu ed, Routine simethicone 0 Yes 125mg 125 mg, Un janny (MYLICON) 08-01 Oral, ity of chewable 19:00: PC+HS, [place] tablet 125 00 First dose Med ical mg on [place] 08/01/21 at 1300, Until Discontinu ed, Routine simethicone 0 Yes 125mg 125 mg, Un janny (MYLICON) 17 Oral, ity of chewable 19:00: PC+HS, [place] tablet 125 00 First dose Med ical mg on [facility] 08/01/21 at 1300, Until Discontinu ed, Routine lactated 0 202- No 1000mL at 125 [facility] ers ringers IV 08-01 02-17 mL/hr, ity of infusion 16:15: 16:02 1,000 mL, [place] 1,000 mL 00 :00 IV Medical Infusion, Branch ONCE, 1 dose, On [facility] 08/01/21 at 1015, Routine rho(D) 0 Yes 300ug 300 mcg, [facility] s immune 08-01 Intramuscu ity of globulin 16:00: lar, ONCE, [place] (RHOGAM) 22 For 1 Medical syringe 300 dose, Branch mcg Conditiona l, Routine rho(D) 0 Yes 300ug 300 mcg, [facility] immune 08-01 Intramuscu ity of globulin 16:00: lar, ONCE, [place] (RHOGAM) 22 For 1 Medical syringe 300 dose, Branch mcg Conditiona l, Routine diphenhydrA 0 Yes 25mg 25 mg, [facility] ers MINE 08-01 Slow IV ity of (BENADRYL) 16:00: Push, [place] injection 17 Q6HPRN, Medical 25 mg Starting Branch on [facility] 08/01/21 at 1000, Until Discontinu ed, Routine, Itching diphenhydrA 0 Yes 25mg 25 mg, [facility] MINE 2-17 Oral, ity of (BENADRYL) 16:00: Q6HPRN, [place] tablet 25 17 Starting Medica l mg on [place] Branch 08/01/21 at 1000, Until Discontinu ed, Routine, Sleep, Itching ondansetron 2022-0 Yes 4mg 4 mg, Slow Univers (ZOFRAN 2-17 IV Push, ity of (PF)) 16:00: Q8HPRN, [place] injection 4 17 Starting Medi chante mg on [place] Branch 08/01/21 at 1000, Until Discontinu ed, Routine, Nausea and Vomiting (N/V) bisacodyL 2022-0 Yes 10mg 10 mg, Univer s (DULCOLAX) 2-17 Rectal, ity of suppository 16:00: QDAILYPRN, [place] 10 mg 17 Starting Medical on [place] Branch 08/01/21 at 1000, Until Discontinu ed, Routine, Constipati on docusate 202-0 Yes 240mg 240 mg, Unive rs calcium 2-17 Oral, ity of (SURFAK) 16:00: QDAILYPRN, [place] capsule 240 17 Starting Medi chante mg on [place] Branch 08/01/21 at 1000, Until Discontinu ed, Routine, Constipati on magnesium 2021-0 Yes 30mL 30 mL, Univer s hydroxide [...] 1000, Until Discontinu ed, Routine, Itching diphenhydrA 2-0 Yes 25mg 25 mg, Univ ers MINE 2-17 Oral, ity of (BENADRYL) 16:00: Q6HPRN, [place] tablet 25 17 Starting Medica l mg on [place] Branch 08/01/21 at 1000, Until Discontinu ed, Routine, Sleep, Itching ondansetron 2022-0 Yes 4mg 4 mg, Slow Univers (ZOFRAN 2-17 IV Push, ity of (PF)) 16:00: Q8HPRN, [place] injection 4 17 Starting Medi chante mg [...] Until Discontinu ed, Routine, Constipati on sodium 2021- No 30mL 30 mL, Univers citrate-cit 08-0117 Oral, ity of jose alejandro acid 12:08: 14:02 PRE-PROCED [place] (BICITRA) 41 :00 URE ONCE, Medic al 500-334 1 dose, Branch mg/5 mL Starting solution 30 on [place] mL 08/01/21 at 0608, Until Discontinu ed, Routine, Surgery/Pr ocedure PNV 0 Yes [id number] Take 1 Univers 102-iron-fo 7-14 TAB-CAP/M2 it y of late-dha 00:00: by mouth [place] (VITAFOL FE 00 daily. Medica l PLUS) 90 mg Branch iron- 1 mg-200 mg Cap metoclopram Yes [id number] 10mg Take 1 Univers chlei HCl 10 7-14 tablet by ity of mg tablet 00:00: mouth [place] 00 every 6 Medical (six) Branch hours as needed for Nausea and Vomiting (N/V). PNV 0 Yes [id number] Take 1 Univers 102-iron-fo 7-14 TAB-CAP/M2 it y of late-dha 00:00: by mouth [place] (VITAFOL FE 00 daily. Medica l PLUS) 90 mg Branch iron- 1 mg-200 mg Cap metoclopram 0 Yes [id number] 10mg Take 1 Univers cheli HCl 10 7-14 tablet by ity of mg tablet 00:00: mouth [place] 00 every 6 Medical (six) Branch hours as needed for Nausea and Vomiting (N/V). PNV 0 Yes [id number] Take 1 Univers 102-iron-fo 7-14 TAB-CAP/M2 it y of late-dha 00:00: by mouth [place] (VITAFOL FE 00 daily. Medica l PLUS) 90 mg Branch iron- 1 mg-200 mg Cap metoclopram 0 Yes [id number] 10mg Take 1 Univers cheli HCl 10 7-14 tablet by ity of mg tablet 00:00: mouth [place] 00 every 6 Medical (six) Branch hours as needed for Nausea and Vomiting (N/V). PNV 0 Yes [id number] Take 1 Univers 102-iron-fo 7-14 TAB-CAP/M2 it y of late-dha 00:00: by mouth [place] (VITAFOL FE 00 daily. Medica l PLUS) 90 mg Branch iron- 1 mg-200 mg Cap metoclopram 0 Yes [id number] 10mg Take 1 Univers cheli HCl 10 7-14 tablet by ity of mg tablet 00:00: mouth [place] 00 every 6 Medical (six) Branch hours as needed for Nausea and Vomiting (N/V). PNV 0 Yes [id number] Take 1 Univers 102-iron-fo 7-14 TAB-CAP/M2 it y of late-dha 00:00: by mouth [place] (VITAFOL FE 00 daily. Medica l PLUS) 90 mg Branch iron- 1 mg-200 mg Cap metoclopram 0 Yes [id number] 10mg Take 1 Univers cheli HCl 10 7-14 tablet by ity of mg tablet 00:00: mouth [place] 00 every 6 Medical (six) Branch hours as needed for Nausea and Vomiting (N/V). PNV 2020-0 Yes [id number] Take 1 Univers 102-iron-fo 7-14 TAB-CAP/M2 it y of late-dha 00:00: by mouth [place] (VITAFOL FE 00 daily. Medica l PLUS) 90 mg Branch iron- 1 mg-200 mg Cap metoclopram 0 Yes [id number] 10mg Take 1 Univers cheli HCl 10 7-14 tablet by ity of mg tablet 00:00: mouth [place] 00 every 6 Medical (six) Branch hours as needed for Nausea and Vomiting (N/V). PNV 0 Yes [id number] Take 1 Univers 102-iron-fo 7-14 TAB-CAP/M2 it y of late-dha 00:00: by mouth [place] (VITAFOL FE 00 daily. Medica l PLUS) 90 mg Branch iron- 1 mg-200 mg Cap metoclopram 0 Yes [id number] 10mg Take 1 Univers cheli HCl 10 7-14 tablet by ity of mg tablet 00:00: mouth [place] 00 every 6 Medical (six) Branch hours as needed for Nausea and Vomiting (N/V). PNV Yes [id number] Take 1 Univers 102-iron-fo 7-14 TAB-CAP/M2 it y of late-dha 00:00: by mouth [place] (VITAFOL FE 00 daily. Medica l PLUS) 90 mg Branch iron- 1 mg-200 mg Cap metoclopram 0 Yes [id number] 10mg Take 1 Univers cheli HCl 10 7-14 tablet by ity of mg tablet 00:00: mouth [place] 00 every 6 Medical (six) Branch hours as needed for Nausea and Vomiting (N/V). PNV 0 Yes [id number] Take 1 Univers 102-iron-fo 7-14 TAB-CAP/M2 it y of late-dha 00:00: by mouth [place] (VITAFOL FE 00 daily. Medica l PLUS) 90 mg Branch iron- 1 mg-200 mg Cap metoclopram 0 Yes [id number] 10mg Take 1 Univers cheli HCl 10 7-14 tablet by ity of mg tablet 00:00: mouth [place] 00 every 6 Medical (six) Branch hours as needed for Nausea and Vomiting (N/V). PNV 0 Yes [id number] Take 1 Univers 102-iron-fo 7-14 TAB-CAP/M2 it y of late-dha 00:00: by mouth [place] (VITAFOL FE 00 daily. Medica l PLUS) 90 mg Branch iron- 1 mg-200 mg Cap metoclopram 0 Yes [id number] 10mg Take 1 Univers cheli HCl 10 7-14 tablet by ity of mg tablet 00:00: mouth [place] 00 every 6 Medical (six) Branch hours as needed for Nausea and Vomiting (N/V). PNV 0 Yes [id number] Take 1 Univers 102-iron-fo 7-14 TAB-CAP/M2 it y of -dha 00:00: by mouth [place] (VITAFOL FE 00 daily. Medica l PLUS) 90 mg Branch iron- 1 mg-200 mg Cap metoclopram 0 Yes [id number] 10mg Take 1 Univers cheli HCl 10 7-14 tablet by ity of mg tablet 00:00: mouth [place] 00 every 6 Medical (six) Branch hours as needed for Nausea and Vomiting (N/V). PNV 0 Yes [id number] Take 1 Univers 102-iron-fo 7-14 TAB-CAP/M2 it y of dha 00:00: by mouth [place] (VITAFOL FE daily. Medica l PLUS) 90 mg Branch iron- 1 mg-200 mg Cap metoclopram 0 Yes [id number] 10mg Take 1 Univers cheli HCl 10 7-14 tablet by ity of mg tablet 00:00: mouth [place] 00 every 6 Medical (six) Branch hours as needed for Nausea and Vomiting (N/V). PNV 0 Yes [id number] Take 1 Univers 102-iron-fo 7-14 TAB-CAP/M2 it y of -dha 00:00: by mouth [place] (VITAFOL FE daily. Medica l PLUS) 90 mg Branch iron- 1 mg-200 mg Cap metoclopram 2020-0 Yes [id number] 10mg Take 1 Univers cheli HCl 10 7-14 tablet by ity of mg tablet 00:00: mouth [place] 00 every 6 Medical (six) Branch hours as needed for Nausea and Vomiting (N/V). PNV 0 Yes [id number] Take 1 Univers 102-iron-fo 7-14 TAB-CAP/M2 it y of late-dha 00:00: by mouth [place] (VITAFOL FE 00 daily. Medica l PLUS) 90 mg Branch iron- 1 mg-200 mg Cap metoclopram 0 Yes [id number] 10mg Take 1 Univers cheli HCl 10 7-14 tablet by ity of mg tablet 00:00: mouth [place] 00 every 6 Medical (six) Branch hours as needed for Nausea and Vomiting (N/V). PNV 0 Yes [id number] Take 1 Univers 102-iron-fo 7-14 TAB-CAP/M2 it y of late-dha 00:00: by mouth [place] (VITAFOL FE 00 daily. Medica l PLUS) 90 mg Branch iron- 1 mg-200 mg Cap metoclopram Yes [id number] 10mg Take 1 Univers cheli HCl 10 7-14 tablet by ity of mg tablet 00:00: mouth [place] 00 every 6 Medical (six) Branch hours as needed for Nausea and Vomiting (N/V). PNV Yes [id number] Take 1 Univers 102-iron-fo 7-14 TAB-CAP/M2 it y of late-dha 00:00: by mouth [place] (VITAFOL FE 00 daily. Medica l PLUS) 90 mg Branch iron- 1 mg-200 mg Cap metoclopram 0 Yes [id number] 10mg Take 1 Univers cheli HCl 10 7-14 tablet by ity of mg tablet 00:00: mouth [place] 00 every 6 Medical (six) Branch hours as needed for Nausea and Vomiting (N/V). PNV 0 Yes [id number] Take 1 Univers 102-iron-fo 7-14 TAB-CAP/M2 it y of late-dha 00:00: by mouth [place] (VITAFOL FE daily. Medica l PLUS) 90 mg Branch iron- 1 mg-200 mg Cap metoclopram 0 Yes [id number] 10mg Take 1 Univers cheli HCl 10 7-14 tablet by ity of mg tablet 00:00: mouth [place] 00 every 6 Medical (six) Branch hours as needed for Nausea and Vomiting (N/V). PNV 0 Yes [id number] Take 1 Univers 102-iron-fo 7-14 TAB-CAP/M2 it y of late-dha 00:00: by mouth [place] (VITAFOL FE 00 daily. Medica l PLUS) 90 mg Branch iron- 1 mg-200 mg Cap metoclopram 2021-0 Yes [id number] 10mg Take 1 Univers cheli HCl 10 7-14 tablet by ity of mg tablet 00:00: mouth [place] 00 every 6 Medical (six) Branch hours as needed for Nausea and Vomiting (N/V). PNV 0 Yes [id number] Take 1 Univers 102-iron-fo 7-14 TAB-CAP/M2 it y of 00:00: by mouth [place] (VITAFOL FE 00 daily. Medica l PLUS) 90 mg Branch iron- 1 mg-200 mg Cap metoclopram 0 Yes [id number] 10mg Take 1 Univers cheli HCl 10 7-14 tablet by ity of mg tablet 00:00: mouth [place] 00 every 6 Medical (six) Branch hours as needed for Nausea and Vomiting (N/V). PNV Yes [id number] Take 1 Univers 102-iron-fo 7-14 TAB-CAP/M2 it y of [facility] 00:00: by mouth [place] (VITAFOL FE 00 daily. Medica l PLUS) 90 mg Branch iron- 1 mg-200 mg Cap metoclopram Yes [id number] 10mg Take 1 Univers cheli HCl 10 7-14 tablet by ity of mg tablet 00:00: mouth [place] 00 every 6 Medical (six) Branch hours as needed for Nausea and Vomiting (N/V). PNV 2021- No [id number] Take 1 Univer s 102-iron-fo 7-14 04-25 TAB-CAP/M2 i ty of [facility] 00:00: 00:00 by mouth [place] (VITAFOL FE 00 :00 daily. Medica l PLUS) 90 mg Branch iron- 1 mg-200 mg Cap metoclopram 2021- No [id number] 10mg Take 1 Univers cheli HCl 10 7-14 04-25 tablet by ity of mg tablet 00:00: 00:00 mouth [place] 00 :00 every 6 Medical (six) Branch hours as needed for Nausea and Vomiting (N/V). Immunizations Ordered Filled Immunization Date Status Comments [facility] e Immunization Name Name TD 2021-05-21 Completed University 00:00:00 [facility] TD 2021-05-21 Completed University 00:00:00 [facility] TDAP 2021-05-21 Completed [facility] [facility] 00:[facility]:00 [place] [facility] TDAP 2021-05-21 Completed University of 00:00:00 [place] [facility] TDAP 2021-05-21 Completed University of 00:00:00 [place] [facility] TDAP 2021-05-21 Completed University of 00:00:[address] [facility] Branch TDAP 2021-05-21 Completed University of 00:00:00 [place] [facility] TDAP 2021-05-21 Completed University of 00:00:00 [place] [facility] TDAP 2021-05-21 Completed University of 00:00:[address] [facility] Branch TDAP 2021-05-21 Completed University of 00:00:[address] [facility] Branch TDAP 2021-05-21 Completed University of 00:00:[address] [facility] Branch TDAP 2021-05-21 Completed University of 00:00:[address] [facility] Branch TDAP 2021-05-21 Completed University of 00:00:[address] [facility] Branch TDAP 2021-05-21 Completed [facility] of 00:00:[address] [facility] TDAP 2021-05-21 Completed [facility] of 00:00:[address] [facility] TDAP 2021-05-21 Completed [facility] of 00:00:[address] [facility] TDAP 2021-05-21 Completed University of 00:00:00 [facility] TDAP 2021-05-21 Completed [facility] of 00:00:[address] [facility] TDAP 2021-05-21 Completed University of 00:00:00 [facility] TDAP 2021-05-21 Completed University of 00:00:00 [facility] Influenza Virus 2021-03-22 Completed Universit y of Vaccine 00:00:00 [facility] Influenza Virus 2021-03-22 Completed Universit y of Vaccine 00:00:00 [facility] Influenza Virus 2021-03-22 Completed Universit y of Vaccine 00:00:00 [facility] Influenza Virus 2021-03-22 Completed Universit y of Vaccine 00:00:00 [facility] Influenza Virus 2021-03-22 Completed Universit y of Vaccine 00:00:00 [facility] Influenza Virus 2021-03-22 Completed Universit y of Vaccine 00:00:00 [facility] Influenza Virus 2021-03-22 Completed Universit y of Vaccine 00:00:00 [facility] Influenza Virus 2021-03-22 Completed Universit y of Vaccine 00:00:00 [facility] Influenza Virus 2021-03-22 Completed Universit y of Vaccine 00:00:00 [facility] Influenza Virus 2021-03-22 Completed Universit y of Vaccine 00:00:00 [facility] Influenza Virus 2021-03-22 Completed Universit y of Vaccine 00:00:00 [facility] Influenza Virus 2021-03-22 Completed Universit y of Vaccine 00:00:00 [facility] Influenza Virus 2021-03-22 Completed Universit y of Vaccine 00:00:00 [facility] Influenza Virus 2021-03-22 Completed Universit y of Vaccine 00:00:00 [facility] Influenza Virus 2021-03-22 Completed Universit y of Vaccine 00:00:00 [facility] Influenza Virus 2021-03-22 Completed Universit y of Vaccine 00:00:00 [facility] Influenza Virus 2021-03-22 Completed Universit y of Vaccine 00:00:00 [facility] Influenza Virus 2021-03-22 Completed Universit y of Vaccine 00:00:00 [facility] Influenza Virus 2021-03-22 Completed Universit y of Vaccine 00:00:00 [facility] Influenza Virus 2021-03-22 Completed Universit y of Vaccine 00:00:00 [facility] Influenza Virus 2021-03-22 Completed Universit y of Vaccine 00:00:00 [facility] HPV9 2017-09-13 Completed University of 00:00:00 [facility] HPV9 2017-09-13 Completed University of 00:00:00 [facility] HPV9 2017-09-13 Completed University of 00:00:00 [facility] HPV9 2017-09-13 Completed [facility] of 00:00:00 [facility] HPV9 2017-09-13 Completed [facility] of 00:00:[address] [facility] HPV9 2017-09-13 Completed [facility] of 00:00:[address] [facility] HPV9 2017-09-13 Completed [facility] of 00:00:[address] [facility] HPV9 2017-09-13 Completed University of 00:00:00 [facility] HPV9 2017-09-13 Completed University of 00:00:[address] [facility] HPV9 2017-09-13 Completed [facility] of 00:00:[address] [facility] HPV9 2017-09-13 Completed [facility] 00:00:00 [facility] HPV9 2017-09-13 Completed University of 00:00:00 [facility] HPV9 2017-09-13 Completed University of 00:00:00 [facility] HPV9 2017-09-13 Completed University of 00:00:00 [facility] HPV9 2017-09-13 Completed University of 00:00:00 [facility] HPV9 2017-09-13 Completed University of 00:00:00 [facility] HPV9 2017-09-13 Completed University of 00:00:00 [facility] HPV9 2017-09-13 Completed University of 00:00:00 [facility] HPV9 2017-09-13 Completed University of 00:00:00 [facility] HPV9 2017-09-13 Completed University of 00:00:00 [facility] HPV9 2017-09-13 Completed University of 00:00:00 [facility] MMR 2016-05-02 Completed University of 00:00:00 [facility] MMR 2016-05-02 Completed University of 00:00:00 [facility] MMR 2016-05-02 Completed University of 00:00:00 [facility] MMR 2016-05-02 Completed University of 00:00:00 [facility] MMR 2016-05-02 Completed University of 00:00:00 [facility] MMR 2016-05-02 Completed University of 00:00:00 [facility] MMR 2016-05-02 Completed University of 00:00:00 [facility] MMR 2016-05-02 Completed University of 00:00:00 [facility] MMR 2016-05-02 Completed University of 00:00:00 [facility] MMR 2016-05-02 Completed University of 00:00:00 [facility] MMR 2016-05-02 Completed University of 00:00:00 [facility] MMR 2016-05-02 Completed University of 00:00:00 [facility] MMR 2016-05-02 Completed University of 00:00:00 [facility] MMR 2016-05-02 Completed University of 00:00:00 [facility] MMR 2016-05-02 Completed University of 00:00:00 [facility] MMR 2016-05-02 Completed University of 00:00:00 [facility] MMR 2016-05-02 Completed University of 00:00:00 [facility] MMR 2016-05-02 Completed University of 00:00:00 [facility] MMR 2016-05-02 Completed University of 00:00:00 [facility] MMR 2016-05-02 Completed University of 00:00:00 [facility] MMR 2016-05-02 Completed University of 00:00:00 [facility] Influenza Virus 2016-03-21 Completed Universit y of Vaccine Quad IM 3+ 00:00:00 [facility] Influenza Virus 2016-03-21 Completed Universit y of Vaccine [facility] IM 3+ 00:00:00 [facility] Influenza Virus 2016-03-21 Completed Universit y of Vaccine [facility] IM 3+ 00:00:00 [facility] Influenza Virus 2016-03-21 Completed Universit y of Vaccine [facility] IM 3+ 00:00:00 [facility] Influenza Virus 2016-03-21 Completed Universit y of Vaccine [facility] IM 3+ 00:00:00 [facility] Influenza Virus 2016-03-21 Completed Universit y of Vaccine [facility] IM 3+ 00:00:00 [facility] Influenza Virus 2016-03-21 Completed Universit y of Vaccine [facility] IM 3+ 00:00:00 [facility] Influenza Virus 2016-03-21 Completed Universit y of Vaccine [facility] IM 3+ 00:00:00 [facility] Influenza Virus 2016-03-21 Completed Universit y of Vaccine [facility] IM 3+ 00:00:00 [facility] Influenza Virus 2016-03-21 Completed Universit y of Vaccine [facility] IM 3+ 00:00:00 [facility] Influenza Virus 2016-03-21 Completed Universit y of Vaccine [facility] IM 3+ 00:00:00 [facility] Influenza Virus 2016-03-21 Completed Universit y of Vaccine [facility] IM 3+ 00:00:00 [facility] Influenza Virus 2016-03-21 Completed Universit y of Vaccine [facility] IM 3+ 00:00:00 [facility] Influenza Virus 2016-03-21 Completed Universit y of Vaccine [facility] IM 3+ 00:00:00 [facility] Influenza Virus 2016-03-21 Completed Universit y of Vaccine [facility] IM 3+ 00:00:00 [facility] Influenza Virus 2016-03-21 Completed Universit y of Vaccine [facility] IM 3+ 00:00:00 [facility] Influenza Virus 2016-03-21 Completed Universit y of Vaccine [facility] IM 3+ 00:00:00 [facility] Influenza Virus 2016-03-21 Completed Universit y of Vaccine [facility] IM 3+ 00:00:00 [facility] Influenza Virus 2016-03-21 Completed Universit y of Vaccine [facility] IM 3+ 00:00:00 [facility] Influenza Virus 2016-03-21 Completed Universit y of Vaccine [facility] IM 3+ 00:00:00 [facility] Influenza Virus 2016-03-21 Completed Universit y of Vaccine [facility] IM 3+ 00:00:00 [facility] TDAP 2016-03-07 Completed University of 00:00:00 [facility] TDAP 2016-03-07 Completed University of 00:00:00 [facility] TDAP 2016-03-07 Completed University of 00:00:00 [facility] TDAP 2016-03-07 Completed University of 00:00:00 [facility] TDAP 2016-03-07 Completed University of 00:00:00 [facility] TDAP 2016-03-07 Completed University of 00:00:00 [facility] TDAP 2016-03-07 Completed University of 00:00:00 [facility] TDAP 2016-03-07 Completed University of 00:00:00 [facility] TDAP 2016-03-07 Completed University of 00:00:00 [facility] TDAP 2016-03-07 Completed University of 00:00:00 [facility] TDAP 2016-03-07 Completed University of 00:00:00 [facility] TDAP 2016-03-07 Completed University of 00:00:00 [facility] TDAP 2016-03-07 Completed University of 00:00:00 [facility] TDAP 2016-03-07 Completed University of 00:00:00 [facility] TDAP 2016-03-07 Completed University of 00:00:00 [facility] TDAP 2016-03-07 Completed University of 00:00:00 [facility] TDAP 2016-03-07 Completed University of 00:00:00 [facility] TDAP 2016-03-07 Completed University of 00:00:00 [facility] TDAP 2016-03-07 Completed University of 00:00:00 [facility] TDAP 2016-03-07 Completed University of 00:00:00 [facility] TDAP 2016-03-07 Completed University of 00:00:00 [facility] Vital Signs Vital Name Observation Time Observation Value Comments Source Systolic blood 2021-10-07 21:45:00 108 mm[Hg] Univer sity of pressure [facility] Diastolic blood 2021-10-07 21:45:00 75 mm[Hg] Unive rsity of pressure [facility] Heart rate 2021-10-07 21:45:00 82 /min Universi ty of [facility] Body temperature 2021-10-07 21:45:00 37.11 Mariana Univ ersity of [facility] Respiratory rate 2021-10-07 21:45:00 18 /min Univ ersity of [facility] Body height 2021-10-07 21:45:00 154.9 cm Universi ty of [facility] Body weight 2021-10-07 21:45:00 84.732 kg Universi ty of [facility] BMI 2021-10-07 21:45:00 35.30 kg/m2 Universi ty of [facility] Systolic blood 2021-08-03 01:30:00 125 mm[Hg] Univer sity of pressure [facility] Diastolic blood 2021-08-03 01:30:00 84 mm[Hg] Unive rsity of pressure [facility] Heart rate 2021-08-03 01:30:00 78 /min Universi ty of [facility] Body temperature 2021-08-03 01:30:[address] 36[address] [facility] Respiratory rate 2021-08-03 01:30:00 18 /min Univ ersity of [facility] Oxygen saturation in 2021-08-02 22:21:00 97 /min University of Arterial blood by [facility] Pulse oximetry Branch Body height 2021-08-01 13:18:00 154.9 cm Universi ty of [facility] Body weight 2021-08-01 13:18:00 90.719 kg Universi ty of [facility] BMI 2021-08-01 13:18:00 37.79 kg/m2 Universi ty of [facility] Body height 2021-08-01 13:18:00 154.9 cm Universi ty of [facility] Body weight 2021-08-01 13:18:00 90.719 kg Universi ty of [facility] BMI 2021-08-01 13:18:00 37.79 kg/m2 Universi ty of [facility] Systolic blood 2021-08-01 13:05:00 114 mm[Hg] Univer sity of pressure [facility] Diastolic blood 2021-08-01 13:05:00 71 mm[Hg] Unive rsity of pressure [facility] Heart rate 2021-08-01 13:05:00 96 /min Universi ty of [facility] Oxygen saturation in 2021-08-01 13:05:00 96 /min University of [facility]terial blood by [facility] Respiratory rate 2021-08-01 13:00:00 18 /min Univ ersity of [facility] Heart rate 2021-07-31 01:15:00 107 /min Universi ty of [facility] Oxygen saturation in 2021-07-31 01:15:00 99 /min University of Arterial blood by [facility] Pulse oximetry Branch Systolic blood 2021-07-29 22:20:00 119 mm[Hg] Univer sity of pressure [facility] Diastolic blood 2021-07-29 22:20:00 80 mm[Hg] Unive rsity of pressure [facility] Heart rate 2021-07-29 22:20:00 85 /min Universi ty of [facility] Body temperature 2021-07-29 22:20:00 36.78 Mariana Univ ersity of [facility] Respiratory rate 2021-07-29 22:20:00 18 /min Univ ersity of [facility] Body height 2021-07-29 22:20:00 154.9 cm Universi ty of [facility] Body weight 2021-07-29 22:20:00 90.266 kg Universi ty of [facility] BMI 2021-07-29 22:20:00 37.60 kg/m2 Universi ty [facility] Systolic blood 2021-07-22 22:17:00 116 mm[Hg] Univer sity of pressure [facility] Diastolic blood 2021-07-22 22:17:00 65 mm[Hg] Unive rsity of pressure [facility] Heart rate 2021-07-22 22:17:00 103 /min Universi ty of [facility] Body temperature 2021-07-22 22:17:00 36.67 Mariana Univ ers[facility] Respiratory rate 2021-07-22 22:17:00 18 /min Univ ersity of [facility] Body height 2021-07-22 22:17:00 154.9 cm Universi ty of [facility] Body weight 2021-07-22 22:17:00 91.627 kg Universi ty of [facility] BMI 2021-07-22 22:17:00 38.17 kg/m2 Universi ty of [facility] Systolic blood 2021-07-10 22:07:00 112 mm[Hg] Univer sity of pressure [facility] Diastolic blood 2021-07-10 22:07:00 72 mm[Hg] Unive rsity of pressure [facility] Heart rate 2021-07-10 22:07:00 88 /min Universi ty of [facility] Body temperature 2021-07-10 22:07:00 36.72 Mariana Univ ers[facility] Respiratory rate 2021-07-10 22:07:00 18 /min Univ ersity of [facility] Body height 2021-07-10 22:07:00 152.4 cm Universi ty of [facility] Body weight 2021-07-10 22:07:00 90.266 kg Universi ty of [facility] BMI 2021-07-10 22:07:00 38.86 kg/m2 Universi ty of [facility] Systolic blood 2021-06-25 21:59:00 108 mm[Hg] Univer sity of pressure [facility] Diastolic blood 2021-06-25 21:59:00 73 mm[Hg] Unive rsity of pressure [facility] Heart rate 2021-06-25 21:59:00 102 /min Universi ty of [facility] Body temperature 2021-06-25 21:59:00 36.78 Mariana Univ ersity of [facility] Respiratory rate 2021-06-25 21:59:00 18 /min Univ ersity of [facility] Body height 2021-06-25 21:59:00 152.4 cm Universi ty of [facility] Body weight 2021-06-25 21:59:00 89.812 kg Universi ty of [facility] BMI 2021-06-25 21:59:00 38.67 kg/m2 [facility]i ty [facility] Systolic blood 2021-06-11 22:10:00 116 mm[Hg] Univer sity of pressure [facility] Diastolic blood 2021-06-11 22:10:00 70 mm[Hg] Unive rsity of pressure [facility] Heart rate 2021-06-11 22:10:00 120 /min [facility] Body temperature 2021-06-11 22:10:00 37.06 Mariana Univ [facility] Body height 2021-06-11 22:10:00 152.4 cm [facility] Body weight 2021-06-11 22:10:00 90.175 kg [facility] BMI 2021-06-11 22:10:00 38.83 kg/m2 [facility] Procedures Procedure Date / Time Performing Clinician Source Performed DME/SUPPLY JUSTIFICATION 2021-08-21 06:01:00 Doctor Unassigned, No [facility] CBC WITH DIFF 2021-08-02 09:42:00 Marley [facility] CBC WITH DIFF 2021-08-02 09:42:00 Rojelio Roach [facility] SECTION 2021-08-01 13:51[facility] 2021-08-01 13:51:00 Rojelio Roach [facility] HOSPITAL ADMISSION 2021-08-01 06:01:00 Doctor Unassigned, No [facility] ASSIGNMENT OF BENEFITS 2021-07-31 22:41:25 Doctor Unassigned, No [facility] HB ABO GROUPING 2021-07-31 01:10:00 Rojelio Raoch [facility] RHO (D) IMMUNE GLOBULIN 2021-07-31 01:10:00 Rojelio Roach [facility] RHO (D) IMMUNE GLOBULIN 2021-07-31 01:10:00 Rojelio Roach [facility] CBC WITH DIFF 2021-07-31 01:09:00 Rojelio Roach [facility] ADC CLC OR LCC ONLY - 2021-07-31 00:59:00 [facility] COVID-19 (ID NOW RAPID 2021-07-31 00:59:00 [facility] CONSENT/REFUSAL FOR 2021-07-30 23:58:29 Doctor Unassigned, No Un i[facility] DIAGNOSIS AND TREATMENT Name Medical Branch ASSIGNMENT OF BENEFITS 2021-07-30 23:57:57 Doctor Unassigned, No [facility] Medical Branch POCT URINALYSIS W/O 2021-07-29 00:00:00 Rojelio Roach [facility] SPECIFIC GRAVITY Medical Branch 3 HR GLUCOSE TOLERANCE 2021-07-26 18:33:00 Sadia Hansen [facility] TEST Medical Branch 2 HR GLUCOSE TOLERANCE 2021-07-26 17:41:00 Sadia Hansen [facility] TEST Medical Branch 1 HR GLUCOSE TOLERANCE 2021-07-26 16:41:00 Sadia Hansen [facility] TEST Medical Branch GLUCOSE FASTING 2021-07-26 15:33:00 Sadia Hansen o f [facility] 3 HR GLUCOSE TOLERANCE 2021-07-26 15:33:00 Sadia Hansen [facility] PANEL Medical Branch CONSENT/REFUSAL FOR 2021-07-22 20:48:03 Doctor Unassigned, No Un [facility] DIAGNOSIS AND TREATMENT Name Medical Branch ASSIGNMENT OF BENEFITS 2021-07-22 20:47:49 Doctor Unassigned, No [facility] Medical Branch POCT URINALYSIS W/O 2021-07-22 00:00:00 Sadia Hansen [facility] SPECIFIC GRAVITY Medical Branch >14 WEEKS US 2021-07-10 23:12:42 Rojelio Roach [facility] LIMITED Medical [place] DSU PRE-OP 2021-07-10 06:01:00 Doctor Unassigned, No Univer [facility] Medical Branch POCT URINALYSIS W/O 2021-07-10 00:00:00 Rojelio Roach [facility] SPECIFIC GRAVITY Medical Branch POCT URINALYSIS W/O 2021-06-25 00:00:00 Sadia Hansen [facility] SPECIFIC GRAVITY Medical Branch NOTICE OF PRIVACY 2021-06-12 19:42:38 Doctor [facility]igned, No [facility] NOTICE OF PRIVACY 2021-06-12 19:42:38 Doctor Unassigned, No [facility] CONSENT/REFUSAL FOR 2021-06-12 19:42:24 Doctor Unassigned, No [facility] DI[facility]NOS[facility] AND TREATMENT Name Medical Branch CONSENT/REFUSAL FOR 2021-06-12 19:42:24 [facility] Name Medical Branch ASSIGNMENT OF BENEFITS 2021-06-12 19:42:08 Doctor Unassigned, No [facility] Name Medical Branch ASSIGNMENT OF BENEFITS 2021-06-12 19:42:08 Doctor Unassigned, No [facility] Name [facility] POCT URINALYSIS W/O 2021-06-11 00:00:00 Rojelio Roach [facility] SPECIFIC GRAVITY Medical Branch Encounters Start End Encounter Admission Attending Care Care Encounter Source Date/Time Date/Time Type Type Clinicians Facility Department ID 2021-07-30 Outpatient P [facility] [id number] Univers 20:33:16 [facility] 2019-08-04 Inpatient [facility] NEYMAR [id number] [facility] 10:11:[address] [facility] 2022-04-08 2022-04-08 Outpatient Echo [facility] [id number] Univers 13:30:00 13:30:00 SADIA [facility] 2022-01-13 2022-01-13 Outpatient Echo [facility] [id number] Univers 09:00:00 09:00:00 MARGIE [facility] 2021-11-29 2021-11-29 Outpatient R MARGARITA [facility] [id number] Univers 08:45:00 08:45:00 DARIUS [facility] 2021-11-14 2021-11-14 Outpatient ROJELIO FAULKNER [facility] [id number] Univers 14:00:00 14:00:00 [facility] 2021-11-12 2021-11-12 Outpatient ROJELIO FAULKNER [facility] [id number] Univers 15:30:00 15:30:00 [facility] 2021-10-28 2021-10-28 Outpatient ROJELIO FAULKNER [facility] [id number] Univers 13:00:00 13:00:00 [facility] 2021-10-09 2021-10-09 Outpatient R TYRONE [facility] [id number] Univers 13:15:00 13:15:00 SADIA ity of [facility] 2021-10-07 2021-10-07 Outpatient R ROJELIO ROACH [facility] [id number] Univers 16:00:00 17:07:46 ity of [facility] 2021-10-07 2021-10-07 Routine Marley [facility] [id number] Univers 16:00:00 17:07:46 Cam ELADIA [id number] ity [id number] [id number] In dical [address] 2021-09-10 2021-09-10 Outpatient R ROJELIO ROACH [facility] [id number] Univers 14:00:00 14:00:00 ity of [facility] 2021-08-21 2021-08-21 Telephone Marley [facility] [id number] Univers 00:00:00 00:00:00 Cam ELADIA [id number] i [id number] [id number] In dical [address] 2021-08-21 2021-08-21 Orders Doctor CHAVARRIA [id number] Univers 00:00:00 00:00:00 Only Unassigned, ANUJ [id number] ity of [place] [facility] [id number] [place] [id number] [address] 2021-08-19 2021-08-19 Outpatient R ROJELIO ROACH [facility] [id number] Univers 16:15:00 16:15:00 ity of [facility] 2021-08-15 2021-08-15 Outpatient R MARLEY ROJELIO [facility] [id number] Univers 15:30:00 15:30:00 ity of [facility] 2021-08-01 2021-08-02 Inpatient P MARLEY [facility] [id number] Univers 06:04:00 20:50:00 ity [facility] 2021-08-01 2021-08-02 [facility] Rojelio Roach [facility] [id number] Univers 06:04:00 20:50:00 Encounter Cam [place] [id number] ity of [place] [id number] [facility] [id number] [facility] [address] [place] 2021-08-01 2021-08-01 Surgery Rojelio Roach [facility] [id number] Univers 08:00:00 09:25:00 Cam [place] [id number] i ty of [place] [id number] [facility] [id number] [facility] 013 Branch 2021-08-01 2021-08-01 Orders Doctor AURA [id number] Univers 00:00:00 00:00:00 Only Unassigned, ANUJ [id number] ity [address] [place] [facility] [id number] [place] [id number] [facility] [address] [place] 2021-07-31 2021-07-31 Outpatient R [facility] [id number] Univers 10:00:00 10:00:00 ity of [facility] 2021-07-31 2021-07-31 Orders Doctor AURA [id number] Univers 00:00:00 00:00:00 Only Unassigned, ANUJ [id number] ity [address] [place] [facility] [id number] [place] [phone] [address] 2021-07-30 2021-07-30 Outpatient P ROJELIO ROACH [facility] [id number] Univers 17:56:00 20:15:00 ity of [facility] 2021-07-30 2021-07-30 [facility] Rojelio Roach [facility] [id number] Univers 17:56:00 20:15:00 Encounter Cam [place] [id number] ity of [place] [id number] [facility] [id number] [address] 2021-07-29 2021-07-29 Outpatient R ROJELIO ROACH [facility] [id number] Univers 16:15:00 16:52:23 ity of [facility] 2021-07-29 2021-07-29 Routine Rojelio Roach [facility] 1.2.618.234 [id number] Univers 16:15:00 16:52:23 Cam [place] 350.1.13.10 ity of [place] [phone] In dical NAL 134 [facility] 2021-07-26 2021-07-26 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 Carmen, Adc Lab Main [facility] 1.2.8 40.114 [id number] Univers 09:45:00 10:00:00 Visit Sadia Hansen 350.1.13.10 ity of [place] [phone] In dical NAL 353 [facility] 2021-07-26 2021-07-26 [facility] [id number] Univers 08:45:00 08:45:00 SADIA ity of [facility] 2021-07-25 2021-07-25 Outpatient R [facility] [id number] Univers 08:00:00 08:00:00 ity of [facility] 2021-07-23 2021-07-23 Case Rojelio Roach [facility] 1.2.359.269 [id number] Univers 00:00:00 00:00:00 Management Jeremías MONTILLA 350.1.13.10 it[place] [phone] In dical NAL 134 [facility] 2021-07-22 2021-07-22 [facility] 1.2.695.335 [id number] Univers 16:00:00 16:15:00 Sadia ELADIA 350.1.13.10 ity of [place] [phone] In dical NAL 134 [facility] 2021-07-22 2021-07-22 [facility] [id number] Univers 16:00:00 16:00:00 SADIA ity of [facility] 2021-07-22 2021-07-22 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 2, Adc Lab [facility] 1.2.840.114 [id number] Univers 15:30:00 15:30:00 Visit Rojelio Roach Jeremías MONTILLA 350.1.13.10 it[place] [phone] In dical NAL 353 [facility] 2021-07-22 2021-07-22 Orders Doctor [facility]UR[facility] 1.2.840.114 [id number] Univers 00:00:00 00:00:00 Only Unassigned, ANUJ 350.1.13.10 [facility] 4.2.7.2.686 [place] [phone] [address] 2021-07-18 2021-07-18 Case Rojelio Roach [facility] 1.2.439.077 [id number] Univers 00:00:00 00:00:00 Management Jeremías MONTILLA 350.1.13.10 it[place] of [place] [phone] In dical NAL 134 [facility] 2021-07-12 2021-07-12 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 Ultrasound, [facility] 1.2 .840.114 [id number] Univers 14:00:00 14:30:00 Visit Andrew Espinosa SURGICAL SCRUB TECHNOLOGIST 350.1.13.1 0 ity of [facility] 4.2.7.2.686 [place] MATERNAL [phone] Med ical & CHILD [address] [place] [address] 2021-07-12 2021-07-12 Outpatient P FRANCISCA [facility] [id number] Univers 14:00:00 14:00:00 ANDREW rice [facility] 2021-07-10 2021-07-10 Outpatient R ROJELIO ROACH [facility] [id number] Univers 15:30:00 16:44:21 ity [facility] 2021-07-10 2021-07-10 Routine Rojelio Roach [facility] 1.2.873.479 [id number] Univers 15:30:00 16:44:21 Jeremías MONTILLA 350.1.13.10 ity [place] [phone] In dical NAL 134 [facility] 2021-07-10 2021-07-10 Orders Doctor AUR[facility] 1.2.840.114 [id number] Univers 00:00:00 00:00:00 Only Unassigned, ANUJ 350.1.13.10 ity of [place] [facility] 4.2.7.2.686 [place] [phone] [address] 2021-07-03 2021-07-03 Outpatient R [facility] [id number] Univers 08:30:00 08:30:00 ity [facility] 2021-06-25 2021-06-25 Outpatient R TYRONE [facility] [id number] Univers 15:30:00 16:25:35 SADIA ity [facility] 2021-06-25 2021-06-25 [facility] 1.2.685.186 [id number] Univers 15:30:00 16:25:35 Sadia ELADIA 350.1.13.10 ity [place] [phone] In dical NAL 134 [facility] 2021-06-12 2021-06-12 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 2, Adc Lab [facility] 1.2.840.114 [id number] Univers 13:15:00 13:30:00 Visit Rojelio Roach 350.1.13.10 ity of [place] [phone] In dical NAL 353 [facility] 2021-06-12 2021-06-12 Outpatient R [facility] [id number] Univers 13:15:00 13:15:00 ity [facility] 2021-06-12 2021-06-12 Outpatient R ROJELIO ROACH [facility] [id number] Univers 13:15:00 13:15:00 ity [facility] 2021-06-11 2021-06-11 Outpatient R MARLEY ROJELIO [facility] [id number] Univers 15:45:00 16:26:43 ity of [facility] 2021-06-11 2021-06-11 Routine Rojelio Roach [facility] 1.2.557.513 [id number] Univers 15:45:00 16:26:43 [place] 350.1.13.10 ity of [place] [phone] In dical NAL [address] [place] [address] 2021-06-06 2021-06-06 Outpatient R [facility] [id number] Univers 08:00:00 08:00:00 ity of [facility] 2021-06-05 2021-06-05 Outpatient R MARLEY ROJELIO [facility] [id number] Univers 09:45:00 09:45:00 ity of [facility] 2021-06-05 2021-06-05 Outpatient R MARLEY ROJELIO [facility] [id number] Univers 09:15:00 09:15:00 ity [facility] 2021-05-31 2021-05-31 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 [facility] 1.2 .840.114 [id number] Univers 10:00:00 11:00:00 Visit Beatriz Lockwood SURGICAL SCRUB TECHNOLOGIST 350.1.13.10 ity of [facility] 4.2.7.2.686 [place] MATERNAL [phone] [facility] ical & CHILD [address] [place] [address] 2021-05-31 2021-05-31 Outpatient P ELIS [facility] [id number] Univers 10:00:00 10:00:00 BEATRIZ ity of [facility] 2021-05-21 2021-05-21 Outpatient R ROJELIO ROACH [facility] [id number] Univers 14:15:00 15:13:21 ity [facility] 2021-05-21 2021-05-21 Routine Rojelio Roach [facility] 1.2.373.585 [id number] Univers 14:02:24 15:13:21 Cam [place] 350.1.13.10 ity of [place] [phone] In dical NAL [address] [place] [address] 2021-05-20 2021-05-20 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 2, Adc Lab [facility] 1.2.840.114 [id number] Univers 08:39:13 09:37:12 Visit Rojelio Roach 350.1.13.10 ity [facility] 4.2.7.2.[place] [phone] In dical NAL 353 [facility] 2021-05-20 2021-05-20 Outpatient R ROJELIO ROACH [facility] [id number] Univers 08:45:00 08:45:00 ity of [facility] 2021-05-20 2021-05-20 Orders Doctor AURA 1.2.840.114 [id number] Univers 00:00:00 00:00:00 Only Unassigned, ANUJ 350.1.13.10 ity of [place] [facility] 4.2.7.2.686 [place] [phone] [address] 2021-05-20 2021-05-20 Case Tyrone [facility] 1.2.633.722 [id number] Univers 00:00:00 00:00:00 Management Sadia MONTILLA 350.1.13.10 ity of [place] [phone] In dical NAL 134 [facility] 2021-05-13 2021-05-13 Telephone Rojelio Roach [facility] 1.2.840.114 [id number] Univers 00:00:00 00:00:00 Jeremías MONTILLA 350.1.13.10 i ty of [place] [phone] In dical NAL 134 [facility] 2021-05-01 2021-05-01 Orders Doctor AURA 1.2.840.114 [id number] Univers 00:00:00 00:00:00 Only Unassigned, ANUJ 350.1.13.10 ity of [place] [facility] 4.2.7.2.686 [place] [phone] [address] 2021-04-24 2021-04-24 Routine Rojelio Roach [facility] 1.2.005.485 [id number] Univers 16:23:55 17:09:37 Cam [place] 350.1.13.10 ity of [place] [phone] In dical NAL 134 [facility] 2021-04-24 2021-04-24 Outpatient R ROJELIO ROACH [facility] [id number] Univers 16:00:00 17:09:37 ity of [facility] 2021-02-27 2021-02-27 Outpatient R TYRONE [facility] [id number] Univers 14:45:00 14:45:00 SADIA ity of [facility] 2021-02-14 2021-02-14 [facility] 1.2.427.899 [id number] Univers 00:00:00 00:00:00 Management Jeremías Montilla 350.1.13.10 ity of [place] [phone] In dical nal 134 [facility] 2021-02-08 2021-02-08 Telephone Alla Roachen [facility] 1.2.840.114 [id number] Univers 00:00:00 00:00:00 Cam Eladia 350.1.13.10 i ty of [place] [phone] In dical nal 134 [facility] 2021-01-31 2021-01-31 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 2, Adc Lab [facility] 1.2.840.114 [id number] Univers 12:12:02 12:27:02 Visit Rojelio Roach Jeremías Montilla 350.1.13.10 ity of [place] [phone] In dical nal 353 [facility] 2021-01-31 2021-01-31 Outpatient R [facility] [id number] Univers 11:45:00 11:45:00 ity of [facility] 2021-01-31 2021-01-31 Orders Doctor CHAVARRIA 1.2.840.114 [id number] Univers 00:00:00 00:00:00 Only Unassigned, ANUJ 350.1.13.10 ity of [place] [facility] 4.2.7.2.686 [place] [phone] [address] 2021-01-30 2021-01-30 Routine Rojelio Roach [facility] 1.2.573.768 [id number] Univers 13:35:29 13:50:29 Cam [place] 350.1.13.10 ity of [place] Profess[place] [phone] In dical nal [address] [place] [address] 2021-01-30 2021-01-30 Outpatient R [facility] [id number] Univers 13:00:00 13:00:00 ity of [facility] 2021-01-23 2021-01-23 Outpatient R [facility] [id number] Univers 08:30:00 08:30:00 ity of [facility] 2020-12-26 2020-12-26 Initial Marley [facility] 1.2.735.127 [id number] Univers 13:39:48 14:51:20 Cam [place] 350.1.13.10 ity of [place] Profess[place] [phone] In dic[address] 2020-12-26 2020-12-26 Outpatient R ROACH [facility] [id number] Univers 14:15:00 14:15:00 ity of [facility] 2020-12-26 2020-12-26 Outpatient R TYRONE [facility] [id number] Univers 13:15:00 13:15:00 SADIA ity of [facility] 2020-12-26 2020-12-26 Orders Doctor AURA 1.2.840.114 [id number] Univers 00:00:00 00:00:00 Only Unassigned, ANUJ 350.1.13.10 ity of [facility] 4.2.7.2.686 [place] [phone] [address] 2020-12-26 2020-12-26 Letter Doctor AURA 1.2.840.114 [id number] Univers 00:00:00 00:00:00 (Out) Unassigned, ANUJ 350.1.13.10 ity of [place] [facility] 4.2.7.2.686 [place] [phone] [facility] [address] Results Test Description Test Time Test Comments Results Result Comments Source CBC with Differential 2021-08-02 11:15:58 Test Item Value Reference Range Interpretation Comme nts WBC (test code = 6690-2) See_Comment [A utomated message] The system which ge nerated this [...] 32.3 g/dL 31.6-35.1 RDW-SD (test code = 77631-4) 47.2 fL 39.0-49.9 RDW-CV (test code = 788-0) 14.6 % 12.0-15.5 PLT (test code = 777-3) See_Comment [Au tomated message] The system which ge nerated this result transmit trevor reference range: 166 - 35 8 10*3/?L. The reference range was not used to interpret th is result as normal/abnormal . MPV (test code = 81754-0) 10.6 fL 9.5-12.9 NRBC/100 WBC (test code = See_Comment [ Automated message] The 1223326148) system which ge nerated this result transmit trevor reference range: 0.0 - 10 .0 /100 WBCs. The reference r parag was not used to interpr et this result as normal/abnor mal. NRBC x10^3 (test code = <0.01 See_Comment [Au tomated message] The 5897141589) system which ge nerated this result transmit trevor reference range: 10*3/?L. The reference range was not u sed to interpret this result as normal/abnormal . GRAN MAT (NEUT) % (test code 69.5 % = 770-8) IMM GRAN % (test code = 0.40 % 1983356938) LYMPH % (test code = 736-9) 20.1 % MONO % (test code = 5905-5) 8.3 % EOS % (test code = 713-8) 1.4 % BASO % (test code = 706-2) 0.3 % GRAN MAT x10^3(ANC) (test 4.95 10*3/uL 1.88-7.09 code = 7659665897) IMM GRAN x10^3 (test code = 0.03 10*3/uL 0.00-0.06 3444307631) LYMPH x10^3 (test code = 1.43 10*3/uL 1.32-3.29 731-0) MONO x10^3 (test code = 0.59 10*3/uL 0.33-0.92 742-7) EOS x10^3 (test code = 0.10 10*3/uL 0.03-0.39 711-2) BASO x10^3 (test code = <0.03 0.01-0.07 704-7) Lab Interpretation (test Abnormal code = 66657-0) [facility] with [id number] 11:15:58 Test Item Value Reference Range Interpretation Comments WBC (test code = See_Comment [Automated 2590-2) message] The sy stem which generated this result transmitted reference range : 4.30 - 11.10 10*3/?L. The reference range was not used to interpret this result as normal/abnormal . RBC (test code = See_Comment [Automated 529-8) message] The sy stem which generated this [...] RDW-SD (test code = 47.2 fL 39.0-49.9 21767-8) RDW-CV (test code = 14.6 % 12.0-15.5 788-0) PLT (test code = See_Comment [Automated 777-3) message] The sy stem which generated this result transmitted reference range : 166 - 358 10*3/ ?L. The reference r parag was not used to interpret this result as normal/abnormal . MPV (test code = 10.6 fL 9.5-12.9 20166-1) NRBC/100 WBC (test See_Comment [Automat ed code = 7735905681) message] The system which generated this result transmitted reference range : 0.0 - 10.0 /100 WBCs. The refer ence range was not u sed to interpret th is result as normal/abnormal . NRBC x10^3 (test code <0.01 See_Comment [Auto mated = 4492813415) message] The s ystem which generated this result transmitted reference range : 10*3/?L. The reference range was not used to interpret this result as normal/abnormal . GRAN MAT (NEUT) % 69.5 % (test code = 770-8) IMM GRAN % (test code 0.40 % = 5106238771) LYMPH % (test code = 20.1 % 736-9) MONO % (test code = 8.3 % 5905-5) EOS % (test code = 1.4 % 713-8) BASO % (test code = 0.3 % 706-2) GRAN MAT x10^3(ANC) 4.95 10*3/uL 1.88-7.09 (test code = 7549334092) IMM GRAN x10^3 (test 0.03 10*3/uL 0.00-0.06 code = 7786614768) LYMPH x10^3 (test code 1.43 10*3/uL 1.32-3.29 = 731-0) MONO x10^3 (test code 0.59 10*3/uL 0.33-0.92 = 742-7) EOS x10^3 (test code = 0.10 10*3/uL 0.03-0.39 711-2) BASO x10^3 (test code <0.03 0.01-0.07 = 704-7) Lab Interpretation Abnormal (test code = 88964-7) [facility] (D) IMMUNE [id number] 20:14:21 Test Item Value Reference Range Interpretation Comments RHIG CANDIDATE? No- see comment Patient i s not a (test code = candidate for R hIg- 5055) Patient is Rh Positive.Perfor med at [facility] Laboratory [facility] Blood [address] [place], [place] [address]Toll Free: [phone] A No. [id number] [facility] (D) IMMUNE [id number] 20:14:21 Test Item Value Reference Range Interpretation Comments RHIG CANDIDATE? No- see comment Patient i s not a (test code = candidate for R hIg- 5055) Patient is Rh Positive.Perfor med at [facility] Laboratory [facility] Blood [address] [place], [place] [address]Toll Free: [phone] A No. [id number] [facility] - ONCE [id number] 01:57:26 Test Item Value Reference Range Interpretation Comments ABO & RH (test code A Positive Performe d at [facility] = 20) Laboratory Serv [facility] Blood Bank[address] [place], [place] [address]Toll Free: [phone] A No. [id number] IAT (test code = Negative Performed a t [facility] 1185) Laboratory Serv [facility] Blood [address] [place], [place] [address]Toll Free: [phone] A No. [id number] [facility] WITH [id number] 01:35:53 Test Item Value Reference Range Interpretation [...] RDW-SD (test code = 46.4 fL 39.0-49.9 25554-7) RDW-CV (test code = 14.9 % 12.0-15.5 788-0) PLT (test code = See_Comment [Automated 777-3) message] The sy stem which generated this result transmitted reference range : 166 - 358 10*3/ ?L. The reference r parag was not used to interpret this result as normal/abnormal . MPV (test code = 10.1 fL 9.5-12.9 50778-9) NRBC/100 WBC (test See_Comment [Automat ed code = 0672619935) message] The system which generated this result transmitted reference range : 0.0 - 10.0 /100 WBCs. The refer ence range was not u sed to interpret th is result as normal/abnormal . NRBC x10^3 (test code <0.01 See_Comment [Auto mated = 9391389159) message] The s ystem which generated this result transmitted reference range : 10*3/?L. The reference range was not used to interpret this result as normal/abnormal . GRAN MAT (NEUT) % 73.0 % (test code = 770-8) IMM GRAN % (test code 0.50 % = 3428260915) LYMPH % (test code = 18.9 % 736-9) MONO % (test code = 6.6 % 5905-5) EOS % (test code = 0.8 % 713-8) BASO % (test code = 0.2 % 706-2) GRAN MAT x10^3(ANC) 4.79 10*3/uL 1.88-7.09 (test code = 6706320472) IMM GRAN x10^3 (test 0.03 10*3/uL 0.00-0.06 code = 1923046155) LYMPH x10^3 (test code 1.24 10*3/uL 1.32-3.29 L = 731-0) MONO x10^3 (test code 0.43 10*3/uL 0.33-0.92 = 742-7) EOS x10^3 (test code = 0.05 10*3/uL 0.03-0.39 711-2) BASO x10^3 (test code <0.03 0.01-0.07 = 704-7) Lab Interpretation Abnormal (test code = 23021-7) [facility] URINALYSIS W/O SPECIFIC [id number] 22:26:00 Test Item Value Reference Range Interpretation [...] code = 3257) negative Negative - Negative [facility] URINALYSIS W/O SPECIFIC [id number] 22:19:00 Test Item Value Reference Range Interpretation [...] Negative Lab Interpretation (test code = Normal 46329-9) [facility] URINALYSIS W/O SPECIFIC [id number] 22:21:00 Test Item Value Reference Range Interpretation [...] code = 3257) N/A Negative - Negative [facility] URINALYSIS W/O SPECIFIC [id number] 22:01:00 Test Item Value Reference Range Interpretation [...] code = 3257) N/A Negative - [facility] [id number] 22:09:00 Test Item Value Reference Range Interpretation [...] code = 3257) n/a Negative - Negative [facility] [id number] 16:45:00 Test Item Value Reference Range Interpretation [...] HPF NONE BACU) Urine Source? Clean CatchURINALYSIS [id number] 16:45:00 Test Item Value Reference Range Interpretation [...] A MUCU) Urine Source? Clean CatchBASIC METABOLIC [id number] 11:59:00 Test Item Value Reference Range Interpretation [...] GFR) formula.Chronic kidney disease is defined as [facility] kidney damageor GFR <60 mL/min/1.73 m2 for >3 months. CREATININE (test code 0.70 mg/dL 0.55-1.02 N Note change in = CREAT) reference range due to change in reagent. BUN/CREATININE RATIO 15.7 10-20 N (test code = BUN/CREA) CALCIUM (test code = 8.6 mg/dL 8.5-10.1 N CA) HEPATIC FUNCTION [id number] 11:59:00 Test Item Value Reference Range Interpretation [...] ALKP) to change in reagent. HCG SERUM [id number] 11:59:00 Test Item Value Reference Range Interpretation [...] CONCEPTIO N 5-50 MIU/ML1-2 WEEKS AFTER CONCEPTION 50-5 00 MIU/ML2-3 WEEKS AFTER CONCEPTION 100 -5,000 MIU/ML3-4 WEEKS AFTER CONCEPTION 500- 10,000 MIU/ML4-5 WEEKS AFTER CONCEPTION 1000 -50,000 MIU/ML5-6 WEEKS AFTER CONCEPTION 10,000-100,000 MIU/ML6-8 WEEKS AFTER CON CEPTION 15,000- 200,000 MIU/ML2-3 MONTH S AFTER CONCEPTION 10,000-100,000 MIU/ML CBC W/O [id number] 11:40:00 Test Item Value Reference Range Interpretation [...] fL 6.7-11.0 N = MPV) BASIC METABOLIC [id number] 11:38:00 Test Item Value Reference Range Interpretation [...] CREAT) mg/dL 0.55-1.02 BUN/CREATININE RATIO (test code 20 = BUN/CREA) CALCIUM (test code = CA) mg/dL 8.5-10.1 HEPATIC FUNCTION [id number] 11:38:00 Test Item Value Reference Range Interpretation [...] IUnit/L 45-117 code = ALKP) HCG SERUM [id number] 11:38:00 Test Item Value Reference Range Interpretation Comments HCG SERUM BETA (test code = HCG) mIU/mL 0-3 - US PREG AFTER [id number] 11:36:00 Name: YENNY TOPETE [facility] : 1995 Age/S: 23 / F [address] Unit #: [id number] [place] [address] Phys: Angy Hooper NP Acct: [id number] Dis Date: Status: REG ER PHONE #: [phone] Exam Date: 08/04/2019 1108 FAX #: [phone] Reason: bleed in pregnnacy EXAMS: CPT CODE: [id number] US PREG AFTER TRI 25161 REASON FOR EXAM: bleed in pregnnacy EXAM ORDER DATE: 08/04/2019 11:16 AM Attending Yady: Angy Hooper NP PROCEDURE: - US PREG AFTER 1STTRI FINDINGS: The cervix is closed. heart rate is 143 beats per minute. presentation is cephalic. The placenta is anterior and is of grade 0. BPD: 4.90cm (20w6d) HC: 17.65cm (20w1d) AC: 15.70cm (20w6d) FL: 3.31cm (20w2d) Estimated weight is 13 oz +/- 2 oz. anatomy is grossly unremarkable with posterior fossa, bilateral ventricles, 4-chambered heart, stomach, kidneys, spine, 3 vessel cord, cord insertion, bladder, and extremities are within normal limits. IMPRESSION: A single viable IUP with estimated age of 20 weeks 4 days +/-1 week 3 days . Estimated delivery date is December 18, 2019. Location: [facility] at 1136 Reported and signed by: Abdifatah Posadas MD CC: Reese Blas MD; Angy Hooper NP Technologist: Sylvia Zaldivar RDMS Trnscb Date/Time: 08/04/2019 (1136) [email or web address] Orig Print D/T: S: 08/04/2019 (3052) Probe: PAGE 1 Signed ReportURINALYSIS [id number] 11:16:00 Test Item Value Reference Range Interpretation [...]
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
--- NOTE | 2022-04-13 21:02 | RAD REPORT ---
EXAM DESCRIPTION: RAD - Forearm Left - 04/13/2022 8:47 pm CLINICAL HISTORY: Left forearm pain status post injury FINDINGS: No fracture is seen
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
[2022-04-13] MEDS ORDERED: ACETAMINOPHEN 500 MG TAB ONE (21:48)
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
[2022-04-13 22:57] VITALS: BP 133/80; TEMP 97.4; O2SAT 97
== END 2022-04-13 22:27 | disposition home or self-care (01) ==
LOC: ER 18:39
DX: S00.83XA Contusion of other part of head, initial encounter (principal); S50.12XA Contusion of left forearm, initial encounter
CPT/HCPCS: 70450; 72125; 99284

== ENCOUNTER 2022-04-29 18:47 | Emergency (ER) | payer OTHER ==
--- OUTSIDE RECORDS SUMMARY | 2022-04-29 18:53 | XMS REPORT | Continuity of Care Document ---
:1995 Author Organization [facility] t Address [address] [place] [address] Care Team Providers Name Role Phone PCP, PATIENT DOES NOT HAVE A Primary Care Physician UnavailMARY Reeves Attending Clinician Unavailable MARY GUTIERREZ Attending Clinician Unavailable CHRIS ALLRED Attending Clinician Unavailable DARIUS AVILA Attending Clinician Unavailable Darius Avila MD Attending Clinician Doctor Unassigned, [place] Attending Clinician Unavailable SADIA HANSEN Attending Clinician Unavailable MARGIE BARNES Attending Clinician Unavailable ROJELIO ROACH Attending Clinician Unavailable Rojelio Roach MD Attending Clinician Pob, [facility] Main Attending Clinician Unavailable Sadia Hansen PA-C Attending Clinician 2, [facility] Attending Clinician Unavailable Ultrasound, Ang-Mfm Attending Clinician Unavailable Andrew Espinosa MD Attending Clinician ANDREW ESPINOSA Attending Clinician Unavailable Beatriz Lockwood DO Attending Clinician ROJELIO ROACH Admitting Clinician Unavailable Rojelio Roach MD Admitting Clinician Payers Payer Name Policy Type Policy Number Effective Date Expiration Date Ward lolyd [facility] SHARYN NORMAN [id number] 2020 00:00:00 Problems Condition Condition Condition Status Onset Resolution Last Treating Co mments Source Name Details Category Date Date Treatment Clinician Date Liveborn Liveborn Disease Active Unive rs , of , of 2-18 it y of luciano luciano [place] , 00 Me [place] born in born in [facility] by by delivery delivery 39 weeks 39 weeks Disease Active Unive rs gestation gestation 2-17 ity of of of 00:00: [place] 00 [facility] 38 weeks 38 weeks Disease Active Unive rs gestation gestation 2-16 ity of of of 00:00: [place] 00 [facility] High risk High risk Disease Active 2020-06 Uni vers , , 2-28 [place] [facility] Abnormal Abnormal Disease Active 2020-06 Unive rs maternal maternal 2-07 ity of glucose glucose 00:00: [place] tolerance, tolerance, 00 Me dical antepartum antepartum Br anch History of History of Disease Active U nivers anxiety anxiety 3-31 ity of 00:00: [place] [facility] Branch Asthma Asthma Disease Active Univers affecting affecting 3-31 ity of , , [place] antepartum antepartum 00 Me dical Branch Obesity Obesity Disease Active Univers (BMI (BMI 3-30 ity of 30-39.9) 30-39.9) 00:00: [place] [facility] H/O H/O Disease Active Univers 3-30 ity of section section 00:00: [place] [facility] Immune to Immune to Disease Active Uni vers varicella varicella 7-22 ity of 00:00: [place] [facility] Family Family Disease Active Univers history of history of 5-27 it y of spina spina 00:00: [place] bifida bifida 00 Medical Branch Allergies, Adverse Reactions, Alerts Allergy Allergy Status Severity Reaction(s) Onset Inactive Treating Comm ents Source Name Type Date Date Clinician No Known DA [facility] No Known DA [facility] NO KNOWN Drug Active Univers ALLERGIE Class ity of S [facility] Social History Social Habit Start Date Stop Date Quantity Comments Source ASSERTION 2020-11-15 University 00:00:00 [facility] Exposure to 2022-04-08 2022-04-18 Not sure [facility] SARS-CoV-2 00:00:00 09:36:00 [facility] (event) [place] Tobacco use and 2022-04-18 2022-04-18 Smokeless tobacco Un iversity of exposure 00:00:00 00:00:00 non-user [facility] Alcohol intake 2022-04-18 2022-04-18 Current [facility] 00:00:00 00:00:00 non-drinker of [facility] alcohol (finding) [place] Sex Assigned At [birth year] Universit y of 00:00:00 00:00:00 [facility] Smoking Status Start Date Stop Date Source Never smoked tobacco [facility] Medications Ordered Filled Start Stop Current Ordering Indication Dosage Frequency Signature Comments Components Source Medication Medication Date Date Medication? Clinician (SIG) Name Name miSOPROStoL Yes [id number] 200ug Take 1 Univers 200 mcg 4-25 tablet by ity of tablet 00:00: mouth SEE-INSTRU Medical CTIONS. Branch Take one tab the night before and one tab the morning of procedure busPIRone 5 Yes [id number] 5mg Take 1 Univers mg tablet 4-25 tablet by ity o f 00:00: mouth (two) Medical times Branch daily. miSOPROStoL Yes [id number] 200ug Take 1 Univers 200 mcg 4-25 tablet by ity of tablet 00:00: mouth SEE-INSTRU Medical CTIONS. Branch Take one tab the night before and one tab the morning of procedure busPIRone 5 Yes [id number] 5mg Take 1 Univers mg tablet 4-25 tablet by ity o f 00:00: mouth 2 (two) Medical times Branch daily. miSOPROStoL 2021-0 Yes [id number] 200ug Take 1 Univers 200 mcg 4-25 tablet by ity of tablet 00:00: mouth SEE-INSTRU Medical CTIONS. Branch Take one tab the night before and one tab the morning of procedure busPIRone 5 2021-0 Yes [id number] 5mg Take 1 Univers mg tablet 4-25 tablet by ity o f 00:00: mouth (two) Medical times Branch daily. miSOPROStoL 2021-0 Yes [id number] 200ug Take 1 Univers 200 mcg 4-25 tablet by ity of tablet 00:00: mouth SEE-INSTRU Medical CTIONS. Branch Take one tab the night before and one tab the morning of procedure busPIRone 5 2021-0 Yes [id number] 5mg Take 1 Univers mg tablet 4-25 tablet by ity o f 00:00: mouth (two) Medical times Branch daily. ibuprofen 0 Yes 600mg 600 mg, Univ ers (IBU) [...] Last dose on Thu08/02/21 at 1800, Routine
wireless team member approving Restricted medication : ROJELIO ROACH ketorolac No 30mg 30 mg, Unive rs (TORADOL) 08-02 Slow IV ity of injection 06:00: 00:45 [place], Q6H [place] 30 mg 00 :00 ABX, 4 Medical doses, Branch First dose on Thu08/02/21 at 0000, Last dose on Thu08/02/21 at 1800, Routine
wireless team member approving Restricted medication : ROJELIO [...] 2200, Until Discontinu ed, Routine acetaminoph Yes [id number] 650mg Take 2 Univers en 325 mg 2-18 tablets by ity of tablet 00:00: mouth [place] 00 every 6 Medical (six) Branch hours as needed for Pain (scale 1-3) or Pain (scale 4-6). Yes [id number] 1{tbl} Take 1 Univers vitamin 2-18 tablet by ity of w/FA tablet 00:00: mouth [place] 00 daily. Medical Branch docusate Yes [id number] 240mg Take 1 U nivers calcium 240 2-18 capsule by it y of mg capsule 00:00: mouth once [place] daily as Medical needed for Branch Constipati on. ferrous Yes [id number] 325mg Take 1 Un janny sulfate 325 2-18 tablet by ity of mg (65 mg 00:00: mouth 2 [place] iron) 00 (two) Medical tablet times Branch daily. ibuprofen Yes [id number] 600mg Take 1 Univers 600 mg 2-18 tablet by ity of tablet 00:00: mouth [place] 00 every 6 Medical (six) Branch hours as needed (Pain). Take with food or milk. acetaminoph Yes [id number] 650mg Take 2 Univers en 325 mg 2-18 tablets by ity of tablet 00:00: mouth [place] 00 every 6 Medical (six) Branch hours as needed for Pain (scale 1-3) or Pain (scale 4-6). Yes [id number] 1{tbl} Take 1 Univers vitamin 2-18 tablet by ity of w/FA tablet 00:00: mouth [place] 00 daily. Medical Branch docusate Yes [id number] 240mg Take 1 U nivers calcium 240 2-18 capsule by it y of mg capsule 00:00: mouth once [place] 00 daily as Medical needed for Branch Constipati on. ferrous Yes [id number] 325mg Take 1 Un janny sulfate 325 2-18 tablet by ity of mg (65 mg 00:00: mouth 2 [place] iron) 00 (two) Medical tablet times Branch daily. ibuprofen Yes [id number] 600mg Take 1 Univers 600 mg 2-18 tablet by ity of tablet 00:00: mouth [place] 00 every 6 Medical (six) Branch hours as needed (Pain). Take with food or milk. acetaminoph Yes [id number] 650mg Take 2 Univers en 325 mg 2-18 tablets by ity of tablet 00:00: mouth [place] 00 every 6 Medical (six) Branch hours as needed for Pain (scale 1-3) or Pain (scale 4-6). Yes [id number] 1{tbl} Take 1 Univers vitamin 2-18 tablet by ity of w/FA tablet 00:00: mouth [place] 00 daily. Medical Branch docusate Yes [id number] 240mg Take 1 U nivers calcium 240 2-18 capsule by it y of mg capsule 00:00: mouth once [place] 00 daily as Medical needed for Branch Constipati on. ferrous Yes [id number] 325mg Take 1 Un ajnny sulfate 325 2-18 tablet by ity of mg (65 mg 00:00: mouth 2 [place] iron) 00 (two) Medical tablet times Branch daily. ibuprofen Yes [id number] 600mg Take 1 Univers 600 mg 2-18 tablet by ity of tablet 00:00: mouth [place] 00 every 6 Medical (six) Branch hours as needed (Pain). Take with food or milk. acetaminoph Yes [id number] 650mg Take 2 Univers en 325 mg 2-18 tablets by ity of tablet 00:00: mouth [place] 00 every 6 Medical (six) Branch hours as needed for Pain (scale 1-3) or Pain (scale 4-6). Yes [id number] 1{tbl} Take 1 Univers vitamin 2-18 tablet by ity of w/FA tablet 00:00: mouth [place] 00 daily. Medical Branch docusate Yes [id number] 240mg Take 1 U nivers calcium 240 2-18 capsule by it y of mg capsule 00:00: mouth once [place] 00 daily as Medical needed for Branch Constipati on. ferrous Yes [id number] 325mg Take 1 Un janny sulfate 325 2-18 tablet by ity of mg (65 mg 00:00: mouth 2 [place] iron) 00 (two) Medical tablet times Branch daily. ibuprofen Yes [id number] 600mg Take 1 Univers 600 mg 2-18 tablet by ity of tablet 00:00: mouth [place] 00 every 6 Medical (six) Branch hours as needed (Pain). Take with food or milk. acetaminoph Yes [id number] 650mg Take 2 Univers en 325 mg 2-18 tablets by ity of tablet 00:00: mouth [place] 00 every 6 Medical (six) Branch hours as needed for Pain (scale 1-3) or Pain (scale 4-6). Yes [id number] 1{tbl} Take 1 Univers vitamin 2-18 tablet by ity of w/FA tablet 00:00: mouth [place] 00 daily. Medical Branch docusate Yes [id number] 240mg Take 1 U nivers calcium 240 2-18 capsule by it y of mg capsule 00:00: mouth once [place] 00 daily as Medical needed for Branch Constipati on. ferrous 2021-0 Yes [id number] 325mg Take 1 Un janny sulfate 325 2-18 tablet by ity of mg (65 mg 00:00: mouth 2 [place] iron) 00 (two) Medical tablet times Branch daily. ibuprofen 2021-0 Yes [id number] 600mg Take 1 Univers 600 mg 2-18 tablet by ity of tablet 00:00: mouth [place] 00 every 6 Medical (six) Branch hours as needed (Pain). Take with food or milk. 2021-0 Yes [id number] 1{tbl} Take 1 Univers vitamin 2-18 tablet by ity of w/FA tablet 00:00: mouth [place] 00 daily. Medical Branch ferrous 2021-0 Yes [id number] 325mg Take 1 Un janny sulfate 325 2-18 tablet by ity of mg (65 mg 00:00: mouth 2 [place] iron) 00 (two) Medical tablet times Branch daily. 2021-0 Yes [id number] 1{tbl} Take 1 Univers vitamin 2-18 tablet by ity of w/FA tablet 00:00: mouth [place] 00 daily. Medical Branch ferrous 2021-0 Yes [id number] 325mg Take 1 Un janny sulfate 325 2-18 tablet by ity of mg (65 mg 00:00: mouth 2 [place] iron) 00 (two) Medical tablet times Branch daily. 2021-0 Yes [id number] 1{tbl} Take 1 Univers vitamin 2-18 tablet by ity of w/FA tablet 00:00: mouth [place] 00 daily. Medical Branch ferrous 2021-0 Yes [id number] 325mg Take 1 Un janny sulfate 325 2-18 tablet by ity of mg (65 mg 00:00: mouth 2 [place] iron) 00 (two) Medical tablet times Branch daily. 2021-0 Yes [id number] 1{tbl} Take 1 Univers vitamin 2-18 tablet by ity of w/FA tablet 00:00: mouth [place] 00 daily. Medical Branch ferrous 2021-0 Yes [id number] 325mg Take 1 Un janny sulfate 325 2-18 tablet by ity of mg (65 mg 00:00: mouth 2 [place] iron) 00 (two) Medical tablet times Branch daily. acetaminoph No [id number] 650mg Take 2 Univers en 325 mg 2-18 -25 tablets by ity of tablet 00:00: 00:00 mouth [place] 00 :00 every 6 Medical (six) Branch hours as needed for Pain (scale 1-3) or Pain (scale 4-6). docusate 2021- No [id number] 240mg Take 1 Univers calcium 240 2-30 09-25 capsule by i ty of mg capsule 00:00: 00:00 mouth once [place] 00 :00 daily as Medical needed for Branch Constipati on. ibuprofen 2021- No [id number] 600mg Take 1 Univers 600 mg 2-18 -25 tablet by ity of tablet 00:00: 00:00 mouth [place] 00 :00 every 6 Medical (six) Branch hours as needed (Pain). Take with food or milk. HYDROcodone 2021- No [id number] 1{tbl} Take 1 U nivers -acetaminop 2-18 -26 tablet by it y of hen 10-325 00:00: 05:59 mouth [place] mg tablet 00 :00 every 6 Medical (six) Branch hours as needed for Pain (scale 7-10) for up to 7 days. Indication s: acute pain HYDROcodone 2021- No [id number] 1{tbl} Take 1 U nivers -acetaminop 2-18 -26 tablet by it y of hen 10-325 [...] Indication s: acute pain gabapentin 2021- No [id number] 300mg Take 1 Univers 300 mg 2-18 -24 capsule by ity of capsule 00:00: 05:59 mouth 3 [place] 00 :00 (three) Medical times [place] daily for 5 days. gabapentin 2021- No [id number] 300mg Take 1 Univers 300 mg 2-18 -24 capsule by ity of capsule 00:00: 05:59 mouth 3 [place] 00 :00 (three) [facility] times [place] daily for 5 days. gabapentin 2021-0 2021- No [id number] 300mg Take 1 Univers 300 mg 2-18 -24 capsule by ity of capsule 00:00: 05:59 mouth 3 [place] 00 :00 (three) [facility] times [place] daily for 5 days. gabapentin Yes 300mg 300 mg, Uni vers (NEURONTIN) 2-17 Oral, TID, it y of capsule 300 20:00: First dose [place] mg 00 on [facility] 08/01/21 at [place] 1400, Until Discontinu ed, Routine gabapentin 0 Yes 300mg 300 mg, Uni vers (NEURONTIN) 2-17 Oral, TID, it y of capsule 300 20:00: First dose [place] mg 00 on [facility] 08/01/21 at [place] 1400, Until Discontinu ed, Routine simethicone Yes 125mg 125 mg, Un janny (MYLICON) 2-17 Oral, ity of chewable 19:00: PC+HS, [place] tablet 125 00 First dose Med ical mg on [facility] 08/01/21 at 1300, Until Discontinu ed, Routine simethicone 0 Yes 125mg 125 mg, Un janny (MYLICON) 2-17 Oral, ity of chewable 19:00: PC+HS, [place] tablet 125 00 First dose Med ical mg on [facility] 08/01/21 at 1300, Until Discontinu ed, Routine lactated 2021- No 1000mL at 125 Univ ers ringers IV 08-01 02-17 mL/hr, ity of infusion 16:15: 16:02 1,000 mL, [place] 1,000 mL 00 :00 IV Medical Infusion, Branch ONCE, 1 dose, On [facility] 08/01/21 at 1015, Routine rho(D) 0 Yes 300ug 300 mcg, Univer s immune -17 Intramuscu ity of globulin 16:00: lar, ONCE, [place] (RHOGAM) 22 For 1 Medical syringe 300 dose, Branch mcg Conditiona l, Routine rho(D) 2021-0 Yes 300ug 300 mcg, Univer s immune 2-17 Intramuscu ity of globulin 16:00: lar, ONCE, [place] (RHOGAM) 22 For 1 Medical syringe 300 dose, Branch mcg Conditiona l, Routine diphenhydrA 2021-0 Yes 25mg 25 mg, Univ ers MINE 2-17 Slow IV ity of (BENADRYL) 16:00: Push, [place] injection 17 Q6HPRN, Medical 25 mg Starting Branch on [place] 08/01/21 at 1000, Until Discontinu ed, Routine, Itching diphenhydrA 2021-0 Yes 25mg 25 mg, Univ ers MINE 2-17 Oral, ity of (BENADRYL) 16:00: Q6HPRN, [place] tablet 25 17 Starting Medica l mg on [facility] Branch 08/01/21 at 1000, Until Discontinu ed, Routine, Sleep, Itching ondansetron 2021-0 Yes 4mg 4 mg, Slow Univers (ZOFRAN 2-17 IV Push, ity of (PF)) 16:00: Q8HPRN, [place] injection 4 17 Starting Medi chante mg on [place] Branch 08/01/21 at 1000, Until Discontinu ed, Routine, Nausea and Vomiting (N/V) bisacodyL 2021-0 Yes 10mg 10 mg, Univer s (DULCOLAX) 2-17 Rectal, ity of suppository 16:00: QDAILYPRN, [place] 10 mg 17 Starting Medical on [place] Branch 08/01/21 at 1000, Until Discontinu ed, Routine, Constipati on docusate 2021-0 Yes 240mg 240 mg, Unive rs calcium 2-17 Oral, ity of (SURFAK) 16:00: QDAILYPRN, [place] capsule 240 17 Starting Medi chante mg on [facility] Branch 08/01/21 at 1000, Until Discontinu ed, Routine, Constipati on magnesium 2021-0 Yes 30mL 30 mL, Univer s hydroxide 2-17 Oral, ity of (MILK OF 16:00: QDAILYPRN, [place] MAGNESIA) 17 Starting Medica l 400 mg/5 mL on [place] Branch suspension 08/01/21 at 30 mL 1000, Until Discontinu ed, Routine, Constipati on diphenhydrA 2021-0 Yes 25mg 25 mg, Univ ers MINE 2-17 Slow IV ity of (BENADRYL) 16:00: Push, [place] injection 17 Q6HPRN, Medical 25 mg Starting Branch on [place] 08/01/21 at 1000, Until Discontinu ed, Routine, Itching diphenhydrA 2021-0 Yes 25mg 25 mg, Univ ers MINE 2-17 Oral, ity of (BENADRYL) 16:00: Q6HPRN, [place] tablet 25 17 Starting Medica l mg on [place] Branch 08/01/21 at 1000, Until Discontinu ed, Routine, Sleep, Itching ondansetron 2021-0 Yes 4mg 4 mg, Slow Univers (ZOFRAN 2-17 IV Push, ity of (PF)) 16:00: Q8HPRN, [place] injection 4 17 Starting Medi chante mg on [place] Branch 08/01/21 at 1000, Until Discontinu ed, Routine, Nausea and Vomiting (N/V) bisacodyL 2021-0 Yes 10mg 10 mg, Univer s (DULCOLAX) 2-17 Rectal, ity of suppository 16:00: QDAILYPRN, [place] 10 mg 17 Starting Medical on [place] Branch 08/01/21 at 1000, Until Discontinu ed, Routine, Constipati on docusate 0 Yes 240mg 240 mg, Unive rs calcium [...] Until Discontinu ed, Routine, Constipati on sodium 2022-0 2022- No 30mL 30 mL, Univers citrate-cit 2-17 02-17 Oral, ity of jose alejandro acid 12:08: 14:02 PRE-PROCED [place] (BICITRA) 41 :00 URE ONCE, Medic al 500-334 1 dose, Branch mg/5 mL Starting solution 30 on [place] mL 08/01/21 at 0608, Until Discontinu ed, Routine, Surgery/Pr ocedure PNV 2020-0 Yes [id number] Take 1 Univers 102-iron-fo 7-14 TAB-CAP/M2 it y of late-dha 00:00: by mouth [place] (VITAFOL FE 00 daily. Medica l PLUS) 90 mg Branch iron- 1 mg-200 mg Cap metoclopram 0 Yes [id number] 10mg Take 1 Univers cheli HCl 10 7-14 tablet by ity of mg tablet 00:00: mouth [place] 00 every 6 Medical (six) Branch hours as needed for Nausea and Vomiting (N/V). PNV Yes [id number] Take 1 Univers 102-iron-fo 7-14 TAB-CAP/M2 it y of late-dha 00:00: by mouth [place] (VITAFOL FE 00 daily. Medica l PLUS) 90 mg Branch iron- 1 mg-200 mg Cap metoclopram 0 Yes [id number] 10mg Take 1 Univers cheli HCl 10 7-14 tablet by ity of mg tablet 00:00: mouth [place] 00 every 6 Medical (six) Branch hours as needed for Nausea and Vomiting (N/V). PNV Yes [id number] Take 1 Univers 102-iron-fo 7-14 TAB-CAP/M2 it y of late-dha 00:00: by mouth [place] (VITAFOL FE 00 daily. Medica l PLUS) 90 mg Branch iron- 1 mg-200 mg Cap metoclopram 0 Yes [id number] 10mg Take 1 Univers cheli HCl 10 7-14 tablet by ity of mg tablet 00:00: mouth [place] 00 every 6 Medical (six) Branch hours as needed for Nausea and Vomiting (N/V). PNV 0 Yes [id number] Take 1 Univers 102-iron-fo 7-14 TAB-CAP/M2 it y of late-dha 00:00: by mouth [place] (VITAFOL FE 00 daily. Medica l PLUS) 90 mg Branch iron- 1 mg-200 mg Cap metoclopram 0 Yes [id number] 10mg Take 1 Univers cheli HCl 10 7-14 tablet by ity of mg tablet 00:00: mouth [place] 00 every 6 Medical (six) Branch hours as needed for Nausea and Vomiting (N/V). PNV 2020-0 Yes [id number] Take 1 Univers 102-iron-fo 7-14 TAB-CAP/M2 it y of late-dha 00:00: by mouth [place] (VITAFOL FE 00 daily. Medica l PLUS) 90 mg Branch iron- 1 mg-200 mg Cap metoclopram 2020-0 Yes [id number] 10mg Take 1 Univers cheli HCl 10 7-14 tablet by ity of mg tablet 00:00: mouth [place] 00 every 6 Medical (six) Branch hours as needed for Nausea and Vomiting (N/V). PNV 2020-0 Yes [id number] Take 1 Univers 102-iron-fo 7-14 TAB-CAP/M2 it y of late-dha 00:00: by mouth [place] (VITAFOL FE 00 daily. Medica l PLUS) 90 mg Branch iron- 1 mg-200 mg Cap metoclopram 2020-0 Yes [id number] 10mg Take 1 Univers cheli HCl 10 7-14 tablet by ity of mg tablet 00:00: mouth [place] 00 every 6 Medical (six) Branch hours as needed for Nausea and Vomiting (N/V). PNV 2020-0 Yes [id number] Take 1 Univers 102-iron-fo 7-14 TAB-CAP/M2 it y of late-dha 00:00: by mouth [place] (VITAFOL FE 00 daily. Medica l PLUS) 90 mg Branch iron- 1 mg-200 mg Cap metoclopram 2020-0 Yes [id number] 10mg Take 1 Univers cheli HCl 10 7-14 tablet by ity of mg tablet 00:00: mouth [place] 00 every 6 Medical (six) Branch hours as needed for Nausea and Vomiting (N/V). PNV 2020-0 Yes [id number] Take 1 Univers 102-iron-fo 7-14 TAB-CAP/M2 it y of late-dha 00:00: by mouth [place] (VITAFOL FE 00 daily. Medica l PLUS) 90 mg Branch iron- 1 mg-200 mg Cap metoclopram 2020-0 Yes [id number] 10mg Take 1 Univers cheli HCl 10 7-14 tablet by ity of mg tablet 00:00: mouth [place] 00 every 6 Medical (six) Branch hours as needed for Nausea and Vomiting (N/V). PNV 0 Yes [id number] Take 1 Univers 102-iron-fo 7-14 TAB-CAP/M2 it y of late-dha 00:00: by mouth [place] (VITAFOL FE 00 daily. Medica l PLUS) 90 mg Branch iron- 1 mg-200 mg Cap metoclopram 0 Yes [id number] 10mg Take 1 Univers cheli HCl 10 7-14 tablet by ity of mg tablet 00:00: mouth [place] 00 every 6 Medical (six) Branch hours as needed for Nausea and Vomiting (N/V). PNV 0 Yes [id number] Take 1 Univers 102-iron-fo 7-14 TAB-CAP/M2 it y of late-dha 00:00: by mouth [place] (VITAFOL FE 00 daily. Medica l PLUS) 90 mg Branch iron- 1 mg-200 mg Cap metoclopram 0 Yes [id number] 10mg Take 1 Univers cheli HCl 10 7-14 tablet by ity of mg tablet 00:00: mouth [place] 00 every 6 Medical (six) Branch hours as needed for Nausea and Vomiting (N/V). PNV 0 Yes [id number] Take 1 Univers 102-iron-fo 7-14 TAB-CAP/M2 it y of late-dha 00:00: by mouth [place] (VITAFOL FE 00 daily. Medica l PLUS) 90 mg Branch iron- 1 mg-200 mg Cap metoclopram 0 Yes [id number] 10mg Take 1 Univers cheli HCl 10 7-14 tablet by ity of mg tablet 00:00: mouth [place] 00 every 6 Medical (six) Branch hours as needed for Nausea and Vomiting (N/V). PNV 2020-0 Yes [id number] Take 1 Univers 102-iron-fo 7-14 TAB-CAP/M2 it y of late-dha 00:00: by mouth [place] (VITAFOL FE 00 daily. Medica l PLUS) 90 mg Branch iron- 1 mg-200 mg Cap metoclopram 2020-0 Yes [id number] 10mg Take 1 Univers cheli HCl 10 7-14 tablet by ity of mg tablet 00:00: mouth [place] 00 every 6 Medical (six) Branch hours as needed for Nausea and Vomiting (N/V). PNV 2020-0 Yes [id number] Take 1 Univers 102-iron-fo 7-14 TAB-CAP/M2 it y of late-dha 00:00: by mouth [place] (VITAFOL FE 00 daily. Medica l PLUS) 90 mg Branch iron- 1 mg-200 mg Cap metoclopram 0 Yes [id number] 10mg Take 1 Univers cheli HCl 10 7-14 tablet by ity of mg tablet 00:00: mouth [place] 00 every 6 Medical (six) Branch hours as needed for Nausea and Vomiting (N/V). PNV 0 Yes [id number] Take 1 Univers 102-iron-fo 7-14 TAB-CAP/M2 it y of late-dha 00:00: by mouth [place] (VITAFOL FE 00 daily. Medica l PLUS) 90 mg Branch iron- 1 mg-200 mg Cap metoclopram Yes [id number] 10mg Take 1 Univers cheli HCl 10 7-14 tablet by ity of mg tablet 00:00: mouth [place] 00 every 6 Medical (six) Branch hours as needed for Nausea and Vomiting (N/V). PNV Yes [id number] Take 1 Univers 102-iron-fo 7-14 TAB-CAP/M2 it y of late-dha 00:00: by mouth [place] (VITAFOL FE 00 daily. Medica l PLUS) 90 mg Branch iron- 1 mg-200 mg Cap metoclopram 0 Yes [id number] 10mg Take 1 Univers cheli HCl 10 7-14 tablet by ity of mg tablet 00:00: mouth [place] 00 every 6 Medical (six) Branch hours as needed for Nausea and Vomiting (N/V). PNV 0 Yes [id number] Take 1 Univers 102-iron-fo 7-14 TAB-CAP/M2 it y of late-dha 00:00: by mouth [place] (VITAFOL FE 00 daily. Medica l PLUS) 90 mg Branch iron- 1 mg-200 mg Cap metoclopram 0 Yes [id number] 10mg Take 1 Univers cheli HCl 10 7-14 tablet by ity of mg tablet 00:00: mouth [place] 00 every 6 Medical (six) Branch hours as needed for Nausea and Vomiting (N/V). PNV 0 Yes [id number] Take 1 Univers 102-iron-fo 7-14 TAB-CAP/M2 it y of late-dha 00:00: by mouth [place] (VITAFOL FE 00 daily. Medica l PLUS) 90 mg Branch iron- 1 mg-200 mg Cap metoclopram 0 Yes [id number] 10mg Take 1 Univers cheli HCl 10 7-14 tablet by ity of mg tablet 00:00: mouth [place] 00 every 6 Medical (six) Branch hours as needed for Nausea and Vomiting (N/V). PNV Yes [id number] Take 1 Univers 102-iron-fo 7-14 TAB-CAP/M2 it y of 00:00: by mouth [place] (VITAFOL FE daily. Medica l PLUS) 90 mg Branch iron- 1 mg-200 mg Cap metoclopram 0 Yes [id number] 10mg Take 1 Univers cheli HCl 10 7-14 tablet by ity of mg tablet 00:00: mouth [place] 00 every 6 Medical (six) Branch hours as needed for Nausea and Vomiting (N/V). PNV Yes [id number] Take 1 Univers 102-iron-fo 7-14 TAB-CAP/M2 it y of 00:00: by mouth [place] (VITAFOL FE daily. Medica l PLUS) 90 mg Branch iron- 1 mg-200 mg Cap metoclopram 0 Yes [id number] 10mg Take 1 Univers cheli HCl 10 7-14 tablet by ity of mg tablet 00:00: mouth [place] 00 every 6 Medical (six) Branch hours as needed for Nausea and Vomiting (N/V). PNV 0 Yes [id number] Take 1 Univers 102-iron-fo 7-14 TAB-CAP/M2 it y of 00:00: by mouth [place] (VITAFOL FE daily. Medica l PLUS) 90 mg Branch iron- 1 mg-200 mg Cap metoclopram 0 Yes [id number] 10mg Take 1 Univers cheli HCl 10 7-14 tablet by ity of mg tablet 00:00: mouth [place] 00 every 6 Medical (six) Branch hours as needed for Nausea and Vomiting (N/V). PNV 2021- No [id number] Take 1 Univer s 102-iron-fo 7-14 04-25 TAB-CAP/M2 i [place] of 00:[place] (VITAFOL FE 00 :00 daily. Medica l PLUS) 90 mg Branch iron- 1 mg-200 mg Cap metoclopram 2021- No [id number] 10mg Take 1 Univers cheli HCl 10 12-26 04-25 tablet by ity of mg tablet 00:00: 00:00 mouth [place] 00 :00 every 6 Medical (six) Branch hours as needed for Nausea and Vomiting (N/V). Immunizations Ordered Filled Immunization Date Status Comments [facility] e Immunization Name Name [facility] 2021-05-21 Completed University of 00:00:00 [facility] 2021-05-21 Completed University of 00:00:00 [facility] 2021-05-21 Completed University of 00:00:00 [facility] 2021-05-21 Completed University of 00:00:00 [facility] 2021-05-21 Completed University of 00:00:00 [facility] 2021-05-21 Completed University of 00:00:00 [facility] 2021-05-21 Completed University of 00:00:00 [facility] 2021-05-21 Completed University of 00:00:00 [facility] 2021-05-21 Completed University of 00:00:00 [facility] 2021-05-21 Completed University of 00:00:00 [facility] 2021-05-21 Completed University of 00:00:00 [facility] 2021-05-21 Completed University of 00:00:00 [facility] 2021-05-21 Completed University of 00:00:00 [facility] 2021-05-21 Completed University of 00:00:00 [facility] 2021-05-21 Completed University of 00:00:00 [facility] 2021-05-21 Completed University of 00:00:00 [facility] 2021-05-21 Completed University of 00:00:00 [facility] 2021-05-21 Completed University of 00:00:00 [facility] 2021-05-21 Completed University of 00:00:00 [facility] 2021-05-21 Completed University of 00:00:00 [facility] 2021-05-21 Completed University of 00:00:00 [facility] TDAP 2021-05-21 Completed University of 00:00:00 [facility] TDAP 2021-05-21 Completed University of 00:00:00 [facility] TDAP 2021-05-21 Completed University of 00:00:00 [facility] Influenza Virus 2021-03-22 Completed Universit y of Vaccine 00:00:00 [facility] Branch Influenza Virus 2021-03-22 Completed Universit y of Vaccine 00:00:00 [facility] Branch Influenza Virus 2021-03-22 Completed Universit y of Vaccine 00:00:00 [facility] Influenza Virus 2021-03-22 Completed Universit y of Vaccine 00:00:00 [facility] Influenza Virus 2021-03-22 Completed Universit y of Vaccine 00:00:00 [facility] Branch Influenza Virus 2021-03-22 Completed Universit y of Vaccine 00:00:00 [facility] Branch Influenza Virus 2021-03-22 Completed Universit y of Vaccine 00:00:00 [facility] Branch Influenza Virus 2021-03-22 Completed Universit y of Vaccine 00:00:00 [facility] Branch Influenza Virus 2021-03-22 Completed Universit y of Vaccine 00:00:00 [facility] Branch Influenza Virus 2021-03-22 Completed Universit y of Vaccine 00:00:00 [facility] Branch Influenza Virus 2021-03-22 Completed Universit y of Vaccine 00:00:00 [place] [facility] Branch Influenza Virus 2021-03-22 Completed Universit y of Vaccine 00:00:00 [facility] Branch Influenza Virus 2021-03-22 Completed Universit y of Vaccine 00:00:00 [facility] Branch Influenza Virus 2021-03-22 Completed Universit y of Vaccine 00:00:00 [facility] Branch Influenza Virus 2021-03-22 Completed Universit y of Vaccine 00:00:00 [facility] Branch Influenza Virus 2021-03-22 Completed Universit y of Vaccine 00:00:00 [facility] Branch Influenza Virus 2021-03-22 Completed Universit y of Vaccine 00:00:00 [facility] Branch Influenza Virus 2021-03-22 Completed Universit y of Vaccine 00:00:00 [facility] Branch Influenza Virus 2021-03-22 Completed Universit y of Vaccine 00:00:00 [facility] Branch Influenza Virus 2021-03-22 Completed Universit y of Vaccine 00:00:00 [facility] Influenza Virus 2021-03-22 Completed Universit y of Vaccine 00:00:00 [facility] Influenza Virus 2021-03-22 Completed Universit y of Vaccine 00:00:00 [facility] Influenza Virus 2021-03-22 Completed Universit y of Vaccine 00:00:00 [facility] Influenza Virus 2021-03-22 Completed Universit y of Vaccine 00:00:00 [facility] HPV9 2017-09-13 Completed University of 00:00:00 [facility] Branch HPV9 2017-09-13 Completed University of 00:00:00 [facility] HPV9 2017-09-13 Completed University of 00:00:00 [facility] HPV9 2017-09-13 Completed University of 00:00:00 [facility] HPV9 2017-09-13 Completed University of 00:00:00 [facility] HPV9 2017-09-13 Completed University of 00:00:00 [facility] HPV9 2017-09-13 Completed University of 00:00:00 [facility] HPV9 2017-09-13 Completed University of 00:00:00 [facility] HPV9 2017-09-13 Completed University of 00:00:00 [facility] HPV9 2017-09-13 Completed University of 00:00:00 [facility] HPV9 2017-09-13 Completed University of 00:00:00 [facility] HPV9 2017-09-13 Completed University of 00:00:00 [facility] HPV9 2017-09-13 Completed University of 00:00:00 [facility] HPV9 2017-09-13 Completed University of 00:00:00 [facility] HPV9 2017-09-13 Completed University of 00:00:00 [facility] HPV9 2017-09-13 Completed University of 00:00:00 [facility] HPV9 2017-09-13 Completed University of 00:00:00 [facility] HPV9 2017-09-13 Completed University of 00:00:00 [facility] HPV9 2017-09-13 Completed University of 00:00:00 [facility] HPV9 2017-09-13 Completed University of 00:00:00 [facility] HPV9 2017-09-13 Completed University of 00:00:00 [facility] HPV9 2017-09-13 Completed University of 00:00:00 [facility] HPV9 2017-09-13 Completed University of 00:00:00 [facility] HPV9 2017-09-13 Completed University of 00:00:00 [facility] MMR 2016-05-02 Completed University of 00:00:00 [facility] MMR 2016-05-02 Completed University of 00:00:00 [facility] MMR 2016-05-02 Completed University of 00:00:00 [facility] MMR 2016-05-02 Completed University of 00:00:00 [facility] MMR 2016-05-02 Completed University of 00:00:00 [facility] MMR 2016-05-02 Completed University of 00:00:00 [facility] MMR 2016-05-02 Completed University of 00:00:00 [facility] MMR 2016-05-02 Completed University of 00:00:00 [facility] MMR 2016-05-02 Completed University of 00:00:00 [facility] MMR 2016-05-02 Completed University of 00:00:00 [facility] MMR 2016-05-02 Completed University of 00:00:00 [facility] MMR 2016-05-02 Completed University of 00:00:00 [facility] MMR 2016-05-02 Completed University of 00:00:00 [facility] MMR 2016-05-02 Completed University of 00:00:00 [facility] MMR 2016-05-02 Completed University of 00:00:00 [facility] MMR 2016-05-02 Completed University of 00:00:00 [facility] MMR 2016-05-02 Completed University of 00:00:00 [facility] MMR 2016-05-02 Completed University of 00:00:00 [facility] MMR 2016-05-02 Completed University of 00:00:00 [facility] MMR 2016-05-02 Completed University of 00:00:00 [facility] MMR 2016-05-02 Completed University of 00:00:00 [facility] MMR 2016-05-02 Completed University of 00:00:00 [facility] MMR 2016-05-02 Completed University of 00:00:00 [facility] MMR 2016-05-02 Completed University of 00:00:00 [facility] Influenza Virus 2016-03-21 Completed Universit y of Vaccine Quad IM 3+ 00:00:00 [facility] Influenza Virus 2016-03-21 Completed Universit y of Vaccine [facility] IM 3+ 00:00:00 [facility] Influenza Virus 2016-03-21 Completed Universit y of Vaccine [facility] IM 3+ 00:00:00 [facility] Influenza Virus 2016-03-21 Completed Universit y of Vaccine [facility] IM 3+ 00:00:00 [facility] Influenza Virus 2016-03-21 Completed Universit y of Vaccine [facility] IM 3+ 00:00:00 [facility] Influenza Virus 2016-03-21 Completed Universit y of Vaccine [facility] IM 3+ 00:00:00 [facility] Influenza Virus 2016-03-21 Completed Universit y of Vaccine [facility] IM 3+ 00:00:00 [facility] Influenza Virus 2016-03-21 Completed Universit y of Vaccine [facility] IM 3+ 00:00:00 [facility] Influenza Virus 2016-03-21 Completed Universit y of Vaccine [facility] IM 3+ 00:00:00 [facility] Influenza Virus 2016-03-21 Completed Universit y of Vaccine [facility] IM 3+ 00:00:00 [facility] Influenza Virus 2016-03-21 Completed Universit y of Vaccine [facility] IM 3+ 00:00:00 [facility] Influenza Virus 2016-03-21 Completed Universit y of Vaccine [facility] IM 3+ 00:00:00 [facility] Influenza Virus 2016-03-21 Completed Universit y of Vaccine [facility] IM 3+ 00:00:00 [facility] Influenza Virus 2016-03-21 Completed Universit y of Vaccine [facility] IM 3+ 00:00:00 [facility] Influenza Virus 2016-03-21 Completed Universit y of Vaccine [facility] IM 3+ 00:00:00 [facility] Influenza Virus 2016-03-21 Completed Universit y of Vaccine [facility] IM 3+ 00:00:00 [facility] Influenza Virus 2016-03-21 Completed Universit y of Vaccine [facility] IM 3+ 00:00:00 [facility] Influenza Virus 2016-03-21 Completed Universit y of Vaccine [facility] IM 3+ 00:00:00 [facility] Influenza Virus 2016-03-21 Completed Universit y of Vaccine [facility] IM 3+ 00:00:00 [facility] Influenza Virus 2016-03-21 Completed Universit y of Vaccine [facility] IM 3+ 00:00:00 [facility] Influenza Virus 2016-03-21 Completed Universit y of Vaccine [facility] IM 3+ 00:00:00 [facility] Influenza Virus 2016-03-21 Completed Universit y of Vaccine [facility] IM 3+ 00:00:00 [facility] Influenza Virus 2016-03-21 Completed Universit y of Vaccine [facility] IM 3+ 00:00:00 [facility] Influenza Virus 2016-03-21 Completed Universit y of Vaccine [facility] IM 3+ 00:00:00 [facility] TDAP 2016-03-07 Completed University of 00:00:00 [facility] TDAP 2016-03-07 Completed University of 00:00:00 [facility] TDAP 2016-03-07 Completed University of 00:00:00 [facility] TDAP 2016-03-07 Completed University of 00:00:00 [facility] TDAP 2016-03-07 Completed University of 00:00:00 [facility] TDAP 2016-03-07 Completed University of 00:00:00 [facility] TDAP 2016-03-07 Completed University of 00:00:00 [facility] TDAP 2016-03-07 Completed University of 00:00:00 [facility] TDAP 2016-03-07 Completed University of 00:00:00 [facility] TDAP 2016-03-07 Completed University of 00:00:00 [facility] TDAP 2016-03-07 Completed University of 00:00:00 [facility] TDAP 2016-03-07 Completed University of 00:00:00 [facility] TDAP 2016-03-07 Completed University of 00:00:00 [facility] TDAP 2016-03-07 Completed University of 00:00:00 [facility] TDAP 2016-03-07 Completed University of 00:00:00 [facility] TDAP 2016-03-07 Completed University of 00:00:00 [facility] TDAP 2016-03-07 Completed University of 00:00:00 [facility] TDAP 2016-03-07 Completed University of 00:00:00 [facility] TDAP 2016-03-07 Completed University of 00:00:00 [facility] TDAP 2016-03-07 Completed University of 00:00:00 [facility] TDAP 2016-03-07 Completed University of 00:00:00 [facility] TDAP 2016-03-07 Completed University of 00:00:00 [facility] TDAP 2016-03-07 Completed University of 00:00:00 [facility] TDAP 2016-03-07 Completed University of 00:00:00 [facility] Vital Signs Vital Name Observation Time Observation Value Comments Source Systolic blood 2022-04-18 14:49:00 99 mm[Hg] Univer sity of pressure [place] [facility] Diastolic blood 2022-04-18 14:49:00 69 mm[Hg] Unive rsity of pressure [place] [facility] Heart rate 2022-04-18 14:49:00 95 /min Universi ty [facility] [place] [facility] Body height 2022-04-18 14:49:00 188 cm Universi ty [facility] [place] [facility] Body weight 2022-04-18 14:49:00 90.992 kg Universi ty [facility] [place] [facility] BMI 2022-04-18 14:49:00 25.76 kg/m2 [facility] [place] [facility] Oxygen saturation in 2022-04-18 14:49:00 97 /min University of Arterial blood by [facility] Pulse oximetry Branch Systolic blood 2021-10-07 21:45:00 108 mm[Hg] Univer sity of pressure [place] [facility] Diastolic blood 2021-10-07 21:45:00 75 mm[Hg] Unive rsity of pressure [place] [facility] Heart rate 2021-10-07 21:45:00 82 /min Universi ty [facility] [place] [facility] Body temperature 2021-10-07 21:45:00 37.11 [place] Univ ersity of [place] [facility] Respiratory rate 2021-10-07 21:45:00 18 /min Univ ersity of [place] [facility] Body height 2021-10-07 21:45:00 154.9 cm Universi ty [facility] [place] [facility] Body weight 2021-10-07 21:45:00 84.732 kg [facility] [place] [facility] BMI 2021-10-07 21:45:00 35.30 kg/m2 [facility] [place] [facility] Systolic blood 2021-08-03 01:30:00 125 mm[Hg] Univer sity of pressure [place] [facility] Diastolic blood 2021-08-03 01:30:00 84 mm[Hg] Unive rsity of pressure [place] [facility] Heart rate 2021-08-03 01:30:00 78 /min [facility]i [facility] [place] [facility] Body temperature 2021-08-03 01:30:00 36.89 [place] [facility] ers[facility] [place] [facility] Respiratory rate 2021-08-03 01:30:00 18 /min Univ ers[facility] [place] [facility] Oxygen saturation in 2021-08-02 22:21:00 97 /min University of Arterial blood by [place] [facility] Pulse oximetry Branch Body height 2021-08-01 13:18:00 154.9 cm [facility] [place] [facility] Body weight 2021-08-01 13:18:00 90.719 kg [facility] [place] [facility] BMI 2021-08-01 13:18:00 37.79 kg/m2 [facility] [place] [facility] Body height 2021-08-01 13:18:00 154.9 cm [facility] [place] [facility] Body weight 2021-08-01 13:18:00 90.719 kg [facility] [place] [facility] BMI 2021-08-01 13:18:00 37.79 kg/m2 [facility] [place] [facility] Systolic blood 2021-08-01 13:05:00 114 mm[Hg] Univer sity of pressure [place] [facility] Diastolic blood 2021-08-01 13:05:00 71 mm[Hg] Unive rsity of pressure [place] [facility] Heart rate 2021-08-01 13:05:00 96 /min [facility] [place] [facility] Oxygen saturation in 2021-08-01 13:05:00 96 /min University of Arterial blood by [facility] Pulse oximetry Branch Respiratory rate 2021-08-01 13:00:00 18 /min Univ ersity [facility] [place] [facility] Heart rate 2021-07-31 01:15:00 107 /min [facility] [place] [facility] Oxygen saturation in 2021-07-31 01:15:00 99 /min University of Arterial blood by [facility] Pulse oximetry Branch Systolic blood 2021-07-29 22:20:00 119 mm[Hg] Univer sity of pressure [place] [facility] Diastolic blood 2021-07-29 22:20:00 80 mm[Hg] Unive rsity of pressure [place] [facility] Heart rate 2021-07-29 22:20:00 85 /min [facility] [place] [facility] Body temperature 2021-07-29 22:20:00 36.78 [place] [facility] [place] [facility] Respiratory rate 2021-07-29 22:20:00 18 /min Univ ers[facility] [place] [facility] Body height 2021-07-29 22:20:00 154.9 cm [facility] [place] [facility] Body weight 2021-07-29 22:20:00 90.266 kg [facility] [place] [facility] BMI 2021-07-29 22:20:00 37.60 kg/m2 [facility] [place] [facility] Systolic blood 2021-07-22 22:17:00 116 mm[Hg] Univer sity of pressure [place] [facility] Diastolic blood 2021-07-22 22:17:00 65 mm[Hg] Unive rsity of pressure [place] [facility] Heart rate 2021-07-22 22:17:00 103 /min [facility] [place] [facility] Body temperature 2021-07-22 22:17:00 36.67 [place] [facility] [place] [facility] Respiratory rate 2021-07-22 22:17:00 18 /min Univ ers[facility] [place] [facility] Body height 2021-07-22 22:17:00 154.9 cm [facility] [place] [facility] Body weight 2021-07-22 22:17:00 91.627 kg [facility] [place] [facility] BMI 2021-07-22 22:17:00 38.17 kg/m2 [facility] [place] [facility] Systolic blood 2021-07-10 22:07:00 112 mm[Hg] Univer sity of pressure [place] [facility] Diastolic blood 2021-07-10 22:07:00 72 mm[Hg] Unive rsity of pressure [place] [facility] Heart rate 2021-07-10 22:07:00 88 /min [facility] [place] [facility] Body temperature 2021-07-10 22:07:00 36.72 [place] [facility] [place] [facility] Respiratory rate 2021-07-10 22:07:00 18 /min Univ ers[facility] [place] [facility] Body height 2021-07-10 22:07:00 152.4 cm [facility] [place] [facility] Body weight 2021-07-10 22:07:00 90.266 kg [facility] [place] [facility] BMI 2021-07-10 22:07:00 38.86 kg/m2 [facility] [place] [facility] Systolic blood 2021-06-25 21:59:00 108 mm[Hg] Univer sity of pressure [place] [facility] Diastolic blood 2021-06-25 21:59:00 73 mm[Hg] Unive rsity of pressure [place] [facility] Heart rate 2021-06-25 21:59:00 102 /min Universi ty of [facility] Body temperature 2021-06-25 21:59:00 36.78 [place] [facility] ersity of [facility] Respiratory rate 2021-06-25 21:59:00 18 /min [facility] ersity of [facility] Body height 2021-06-25 21:59:00 152.4 cm Universi ty of [facility] Body weight 2021-06-25 21:59:00 89.812 kg Universi ty of [facility] BMI 2021-06-25 21:59:00 38.67 kg/m2 Universi ty of [facility] Systolic blood 2021-06-11 22:10:00 116 mm[Hg] Univer sity of pressure [facility] Diastolic blood 2021-06-11 22:10:00 70 mm[Hg] Unive rsity of [facility] Heart rate 2021-06-11 22:10:00 120 /min Universi ty of [facility] Body temperature 2021-06-11 22:10:00 37.06 [place] [facility] ersity [facility] Body height 2021-06-11 22:10:00 152.4 cm [facility] [place] [facility] [place] Body weight 2021-06-11 22:10:00 90.175 kg Universi ty of [facility] BMI 2021-06-11 22:10:00 38.83 kg/m2 Universi ty [facility] Procedures Procedure Date / Time Performing Clinician Source Performed ASSIGNMENT OF BENEFITS 2022-04-16 18:01:15 Doctor Unassigned, No [facility] CONSENT/REFUSAL FOR 2022-04-16 18:00:58 Doctor Unassigned, No [facility] DIAGNOSIS AND TREATMENT [facility] DME/SUPPLY JUSTIFICATION 2021-08-21 06:01:00 Doctor Unassigned, No [facility] CBC WITH DIFF 2021-08-02 09:42:00 Rojelio Roach [facility] CBC WITH DIFF 2021-08-02 09:42:00 Rojelio Roach [facility] SECTION 2021-08-01 13:51:00 Rojelio Roach [facility] SECTION 2021-08-01 13:51:00 Rojelio Roach [facility] HOSPITAL ADMISSION 2021-08-01 06:01:00 Doctor Unassigned, No [facility] ASSIGNMENT OF BENEFITS 2021-07-31 22:41:25 Doctor Unassigned, No [facility] HB ABO GROUPING 2021-07-31 01:10:00 Rojelio Roach [facility] RHO (D) IMMUNE GLOBULIN 2021-07-31 01:10:00 Rojelio Roach [facility] RHO (D) IMMUNE GLOBULIN 2021-07-31 01:10:00 Rojelio Roach [facility] CBC WITH DIFF 2021-07-31 01:09:00 Rojelio Roach [facility] ADC CLC OR L[facility] ONLY - 2021-07-31 00:59:00 Rojelio Roach [facility] COVID-19 (ID NOW RAPID 2021-07-31 00:59:00 [facility] Medical Branch CONSENT/REFUSAL FOR 2021-07-30 23:58:29 Doctor Unassigned, No [facility] [place] DIAGNOSIS AND TREATMENT Name Medical Branch ASSIGNMENT OF BENEFITS 2021-07-30 23:57:57 Doctor Unassigned, No [facility] POCT URINALYSIS W/O 2021-07-29 00:00:00 Rojelio Roach [facility] SPECIFIC GRAVITY Medical Branch 3 HR GLUCOSE TOLERANCE 2021-07-26 18:33:00 Sadia Hansen [facility] Medical Branch 2 HR GLUCOSE TOLERANCE 2021-07-26 17:41:00 Sadia Hansen [facility] Medical Branch 1 HR GLUCOSE TOLERANCE 2021-07-26 16:41:00 Sadia Hansen [facility] Medical Branch GLUCOSE FASTING 2021-07-26 15:33:00 Sadia Hansen [facility] 3 HR GLUCOSE TOLERANCE 2021-07-26 15:33:00 Sadia Hansen [facility] PANEL Medical Branch CONSENT/REFUSAL FOR 2021-07-22 20:48:03 [facility] Name Medical Branch ASSIGNMENT OF BENEFITS 2021-07-22 20:47:49 Doctor Unassigned, No [facility] POCT URINALYSIS W/O 2021-07-22 00:00:00 Sadia Hansen [facility] [place] >14 WEEKS US 2021-07-10 23:12:42 Rojelio Roach [facility] DSU PRE-OP 2021-07-10 06:01:00 Doctor [facility]assigned, [facility] POCT URINALYSIS W/O 2021-07-10 00:00:[address] [facility] POCT URINALYSIS W/O 2021-06-25 00:00:[address] [facility] NOTICE OF PRIVACY 2021-06-12 19:42:38 Doctor Unassigned, No [facility]IVACY 2021-06-12 19:42:38 Doctor Unassigned, No [facility] [place] CONSENT/REFUSAL FOR 2021-06-12 19:42:24 Doctor Unassigned, No Un [facility] DIAGNOSIS AND TREATMENT [facility] Medical Branch CONSENT/REFUSAL FOR 2021-06-12 19:42:24 [facility] [place] [facility] ASSIGNMENT OF BENEFITS 2021-06-12 19:42:08 Doctor Unassigned, No [facility] ASSIGNMENT OF BENEFITS 2021-06-12 19:42:08 Doctor Unassigned, No [facility] POCT URINALYSIS W/O 2021-06-11 00:00:[address] [facility] Encounters Start End Encounter Admission Attending Care Care Encounter Source Date/Time Date/Time Type Type Clinicians Facility Department ID 2021-07-30 Outpatient P [facility] SON [id number] Univers 20:33:16 ity [facility] 2019-08-04 Inpatient [facility] NEYMAR [id number] [facility] 10:11:00 06 [facility] 2022-05-27 2022-05-27 Outpatient R MARY GUTIERREZ [facility] B [id number] Univers 13:15:00 13:15:00 LUIGIMARY SOLARES [facility] 2022-04-29 2022-04-29 Outpatient R MARY GUTIERREZ [facility] B [id number] Univers 13:30:00 13:46:34 LUIGIMARY SOLARES [facility] 2022-04-18 2022-04-18 [facility] [id number] Univers 10:00:00 11:48:28 DARIUS rice [facility] 2022-04-18 2022-04-18 [facility] 1.2.959.296 [id number] Univers 10:00:00 11:48:28 Visit [facility] 350.1.13.10 it y of [place] 4.2.7.2.686 [place] SHANKAR?BLEA [phone] [address] MEDICAL OFFICE [facility] 2022-04-16 2022-04-16 [facility] [id number] Univers 13:15:00 13:15:00 DARIUS [facility] 2022-04-16 2022-04-16 Orders Doctor AURA 1.2.840.114 [id number] Univers 00:00:00 00:00:00 Only Unassigned, ANUJ 350.1.13.10 ity of [place] [facility] 4.2.7.2.686 Desitn as [phone] [address] 2022-04-08 2022-04-08 Outpatient Echo HANSEN [facility] [id number] Univers 13:30:00 13:30:00 SADIA laurentrichard [facility] 2022-01-13 2022-01-13 Outpatient Echo BARNES [facility] [id number] Univers 09:00:00 09:00:00 MARGIE rice [facility] 2021-11-29 2021-11-29 Outpatient Echo AVILA [facility] [id number] Univers 08:45:00 08:45:00 DARIUS [facility] 2021-11-14 2021-11-14 Outpatient R ROJELIO ROACH [facility] [id number] Univers 14:00:00 14:00:00 ity of [facility] 2021-11-12 2021-11-12 Outpatient R ROJELIO ROACH [facility] [id number] Univers 15:30:00 15:30:00 ity of [facility] 2021-10-28 2021-10-28 Outpatient R MARLEY [facility] [id number] Univers 13:00:00 13:00:00 ity of [facility] 2021-10-09 2021-10-09 Outpatient R TYRONE [facility] [id number] Univers 13:15:00 13:15:00 SADIA ity [facility] 2021-10-07 2021-10-07 Outpatient R ROJELIO ROACH [facility] [id number] Univers 16:00:00 17:07:46 ity of [facility] 2021-10-07 2021-10-07 Routine Marley [facility] 1.2.032.820 [id number] Univers 16:00:00 17:07:46 Cam [place] 350.1.13.10 ity of [place] [phone] Ut dical NAL [address] [facility] 2021-09-10 2021-09-10 Outpatient R ROJELIO ROACH [facility] [id number] Univers 14:00:00 14:00:00 ity of [facility] 2021-08-21 2021-08-21 Telephone Marley Rojelio [facility] 1.2.840.114 [id number] Univers 00:00:00 00:00:00 Cam [place] 350.1.13.10 i ty of [place] [phone] Ut dical NAL 134 [facility] 2021-08-21 2021-08-21 Orders Doctor AURA 1.2.840.114 [id number] Univers 00:00:00 00:00:00 Only Unassigned, ANUJ 350.1.13.10 ity of [place] [facility] 4.2.7.2.686 [place] [phone] [address] 2021-08-19 2021-08-19 Outpatient R ROJELIO ROACH [facility] [id number] Univers 16:15:00 16:15:00 ity of [facility] 2021-08-15 2021-08-15 Outpatient R ROJELIO ROACH [facility] [id number] Univers 15:30:00 15:30:00 ity of [facility] 2021-08-01 2021-08-02 Inpatient P MARLEY [facility] SON [id number] Univers 06:04:00 20:50:00 ity of [facility] 2021-08-01 2021-08-02 [facility] Marley [facility] 1.2.840.114 [id number] Univers 06:04:00 20:50:00 Encounter Cam [place] 350.1.13.10 ity of [place] 4.2.7.2.686 [facility] [phone] [facility] [address] 2021-08-01 2021-08-01 [facility] 1.2.674.755 [id number] Univers 08:00:00 09:25:00 Cam [place] 350.1.13.10 i ty of [place] 4.2.7.2.686 [facility] [phone] [facility] [address] 2021-08-01 2021-08-01 Orders Doctor AURA 1.2.840.114 [id number] Univers 00:00:00 00:00:00 Only Unassigned, ANUJ 350.1.13.10 ity of [place] [facility] 4.2.7.2.686 [place] [phone] [facility] [address] 2021-07-31 2021-07-31 Outpatient R [facility] [id number] Univers 10:00:00 10:00:00 ity of [facility] 2021-07-31 2021-07-31 Orders Doctor AURA 1.2.840.114 [id number] Univers 00:00:00 00:00:00 Only Unassigned, ANUJ 350.1.13.10 ity of [place] [facility] 4.2.7.2.686 [place] [phone] [facility] [address] 2021-07-30 2021-07-30 Outpatient P ROJELIO ROACH [facility] SON [id number] Univers 17:56:00 20:15:00 ity of [facility] 2021-07-30 2021-07-30 Hospital Rojelio Roach [facility] 1.2.840.114 [id number] Univers 17:56:00 20:15:00 Encounter Jose Miguel MONTILL[place] 350.1.13.10 ity of [place] 4.2.7.2.[place] [phone] [facility] [address] 2021-07-29 2021-07-29 Outpatient R ROJELIO ROACH [facility] [id number] Univers 16:15:00 16:52:23 ity of [facility] 2021-07-29 2021-07-29 Routine Rojelio Roach [facility] 1.2.624.150 [id number] Univers 16:15:00 16:52:23 Jose Miguel MONT[place]A 350.1.13.10 ity of [place] [phone] Ut dical NAL 134 [facility] 2021-07-26 2021-07-26 Landscape Manager Carmen, Adc Lab Main [facility] 1.2.8 40.114 [id number] Univers 09:45:00 10:00:00 Visit Sadia Hansen 350.1.13.10 ity of [place] 4.2.7.2.[place] [phone] Ut dical NAL 353 [facility] 2021-07-26 2021-07-26 Outpatient R TYRONE [facility] [id number] Univers 08:45:00 08:45:00 SADIA ity [facility] 2021-07-25 2021-07-25 Outpatient R [facility] [id number] Univers 08:00:00 08:00:00 ity of [facility] 2021-07-23 2021-07-23 Case Rojelio Roach [facility] 1.2.543.460 [id number] Univers 00:00:00 00:00:00 Management Jose Miguel MONTILLA 350.1.13.10 ity of [place] 4.[place].7.2.[place] [phone] Ut dical NAL 134 [facility] 2021-07-22 2021-07-22 Routine Tyrone [facility] 1.2.333.414 [id number] Univers 16:00:00 16:15:00 Sadia MONTILLA 350.1.13.10 ity of Visit [place] 4[place]2.7.2.[place] [phone] Ut dical NAL 134 [facility] 2021-07-22 2021-07-22 Outpatient R TYRONE [facility] [id number] Univers 16:00:00 16:00:00 SADIA ity of [facility] 2021-07-22 2021-07-22 Landscape Manager 2, Adc Lab [facility] 1.2.840.114 [id number] Univers 15:30:00 15:30:00 Visit Rojelio Roach 350.1.13.10 ity of [place] 4[place].7.2.[place] [phone] Ut dical [facility] 353 [facility] 2021-07-22 2021-07-22 Orders Doctor AURA 1.2.840.114 [id number] Univers 00:00:00 00:00:00 Only Unassigned, ANUJ 350.1.13.10 ity of [place] [facility] 4.2.7.2.686 [place] [phone] [address] 2021-07-18 2021-07-18 Case Rojelio Roach [facility] 1.2.195.045 [id number] Univers 00:00:00 00:00:00 Management Jose Miguel MONTILLA 350.1.13.10 ity of [place] 4.[place].7.2.[place] [phone] Ut dical NAL 134 [facility] 2021-07-12 2021-07-12 Landscape Manager Ultrasound, [place] [facility] 1.2 .840.114 [id number] Univers 14:00:00 14:30:00 Visit Andrew Espinosa TRAINING AND DEVELOPMENT OFFICER 350.1.13.1 0 ity of [facility] 4.2.7.2.686 [place] MATERNAL [phone] Med ical & CHILD [address] [place] [address] 2021-07-12 2021-07-12 Outpatient P FRANCISCA [facility] [id number] Univers 14:00:00 14:00:00 ANDREW ity [facility] 2021-07-10 2021-07-10 Outpatient R ROJELIO ROACH [facility] [id number] Univers 15:30:00 16:44:21 ity of [facility] 2021-07-10 2021-07-10 Routine Rojelio Roach [facility] 1.2.421.523 [id number] Univers 15:30:00 16:44:21 Cam [place] 350.1.13.10 ity of Visit [place] 4[place]2.7.2.[place] [phone] Ut dic[address] 2021-07-10 2021-07-10 Orders Doctor AURA 1.2.840.114 [id number] Univers 00:00:00 00:00:00 Only Unassigned, ANUJ 350.1.13.10 ity of [place] [facility] 4.2.7.2.686 [place] [phone] [address] 2021-07-03 2021-07-03 Outpatient R [facility] [id number] Univers 08:30:00 08:30:00 ity [facility] 2021-06-25 2021-06-25 [facility] [id number] Univers 15:30:00 16:25:35 SADIA itrichard [facility] 2021-06-25 2021-06-25 [facility] 1.2.977.939 [id number] Univers 15:30:00 16:25:35 Sadia MONTILLA 350.1.13.10 ity of Visit [place] 4.2.7.2.[place] [phone] Ut dical NAL [address] [place] [address] 2021-06-12 2021-06-12 Landscape Manager 2, Adc Lab [facility] 1.2.840.114 [id number] Univers 13:15:00 13:30:00 Visit Rojelio Roach Jose Miguel MONTILLA 350.1.13.10 ity of [place] 4.2.7.2.[place] [phone] Ut dical NAL 353 [facility] 2021-06-12 2021-06-12 Outpatient R ROJELIO ROACH [facility] [id number] Univers 13:15:00 13:15:00 ity of [facility] 2021-06-12 2021-06-12 Outpatient R ROJELIO ROACH [facility] [id number] Univers 13:15:00 13:15:00 ity of [facility] 2021-06-11 2021-06-11 Outpatient R MARLEY [facility] [id number] Univers 15:45:00 16:26:43 ity of [facility] 2021-06-11 2021-06-11 Routine Marley [facility] 1.2.341.103 [id number] Univers 15:45:00 16:26:43 Cam [place] 350.1.13.10 ity of [place] 4[place].7.2.[place] [phone] Ut dical NAL 134 [facility] 2021-06-06 2021-06-06 Outpatient R [facility] [id number] Univers 08:00:00 08:00:00 ity of [facility] 2021-06-05 2021-06-05 Outpatient R MARLEY [facility] [id number] Univers 09:45:00 09:45:00 ity of [facility] 2021-06-05 2021-06-05 Outpatient R MARLEY [facility] [id number] Univers 09:15:00 09:15:00 ity [facility] 2021-05-31 2021-05-31 Landscape Manager Ultrasound, [facility] 1.2 .840.114 [id number] Univers 10:00:00 11:00:00 Visit Beatriz Lockwood TRAINING AND DEVELOPMENT OFFICER 350.1.13.10 ity of [facility] 4.2.7.2.686 [place] MATERNAL [phone] Med ical & CHILD [address] [place] [address] 2021-05-31 2021-05-31 Outpatient P ELIS [facility] [id number] Univers 10:00:00 10:00:00 BEATRIZ ity [facility] 2021-05-21 2021-05-21 Outpatient R ROJELIO ROACH [facility] [id number] Univers 14:15:00 15:13:21 ity of [facility] 2021-05-21 2021-05-21 Routine Rojelio Roach [facility] 1.2.357.218 [id number] Univers 14:02:24 15:13:21 Jose Miguel [place] 350.1.13.10 ity of Visit [place] 4.2.7.2.[place] [phone] Ut dical [facility] 134 [facility] 2021-05-20 2021-05-20 Landscape Manager 2, Adc Lab [facility] 1.2.840.114 [id number] Univers 08:39:13 09:37:12 Visit Eris Roachreji [place] 350.1.13.10 ity of [place] 4.2.7.2.[place] [phone] [facility] 2021-05-20 2021-05-20 Outpatient R ROACHERISEN [facility] [id number] Univers 08:45:00 08:45:00 ity of [facility] 2021-05-20 2021-05-20 Orders Doctor AURA 1.2.840.114 [id number] Univers 00:00:00 00:00:00 Only Unassigned, ANUJ 350.1.13.10 ity of [place] [facility]OS[facility] 4.2.7.2.686 [place] [phone] [address] 2021-05-20 2021-05-20 Case Tyrone [facility] 1.2.271.325 [id number] Univers 00:00:00 00:00:00 Management Sadia MONTILLA 350.1.13.10 ity of [facility] 4.2.7.2.[place] [phone] Ut dical NAL 134 [facility] 2021-05-13 2021-05-13 Telephone Eris Roachen [facility] 1.2.840.114 [id number] Univers 00:00:00 00:00:00 Jose Miguel [place] 350.1.13.10 i ty of [place] 4[place]2.7.2.[place] [phone] Ut dical NAL [address] [place] [address] 2021-05-01 2021-05-01 Orders Doctor AURA 1.2.840.114 [id number] Univers 00:00:00 00:00:00 Only Unassigned, ANUJ 350.1.13.10 ity of [place] [facility]OSP[facility] 4.2.7.2.686 [place] [phone] [address] 2021-04-24 2021-04-24 Routine Rojelio Roach [facility] 1.2.223.276 [id number] Univers 16:23:55 17:09:37 Jose Miguel [place] 350.1.13.10 ity of Visit [place] 4.2.7.2.[place] [phone] [address] 2021-04-24 2021-04-24 Outpatient R ROJELIO ROACH [facility] [id number] Univers 16:00:00 17:09:37 ity of [facility] 2021-02-27 2021-02-27 Outpatient R TYRONE [facility] [id number] Univers 14:45:00 14:45:00 SADIA ity of [facility] 2021-02-14 2021-02-14 Case Rojelio Roach [facility] 1.2.927.820 [id number] Univers 00:00:00 00:00:00 Management Jose Miguel Mont[place] 350.1.13.10 ity of [place] 4[place].2.[place] [phone] [address] 2021-02-08 2021-02-08 Telephone Rojelio Roach [facility] 1.2.840.114 [id number] Univers 00:00:00 00:00:00 Cam Khal[place] 350.1.13.10 i ty of [place] 4.2.7.2.[place] [phone] Ut dical nal [address] [place] [address] 2021-01-31 2021-01-31 Landscape Manager 2, Adc Lab [facility] 1.2.840.114 [id number] Univers 12:12:02 12:27:02 Visit Rojelio Roach 350.1.13.10 ity of [place] 4.2.7.2.[place] [phone] Ut dical nal 353 [facility] 2021-01-31 2021-01-31 Outpatient R [facility] [id number] Univers 11:45:00 11:45:00 ity of [facility] 2021-01-31 2021-01-31 Orders Doctor AURA 1.2.840.114 [id number] Univers 00:00:00 00:00:00 Only Unassigned, ANUJ 350.1.13.10 ity of [place] [facility] 4.2.7.2.686 [place] [phone] [address] 2021-01-30 2021-01-30 Routine Rojelio Roach [facility] 1.2.114.816 [id number] Univers 13:35:29 13:50:29 Cam [place] 350.1.13.10 ity of Visit [place] 4.2.7.2.[place] [phone] Ut dical nal 134 [facility] 2021-01-30 2021-01-30 Outpatient R ROJELIO ROACH [facility] [id number] Univers 13:00:00 13:00:00 ity of [facility] 2021-01-23 2021-01-23 Outpatient R MARLEY ROJELIO [facility] [id number] Univers 08:30:00 08:30:00 ity of [facility] 2020-12-26 2020-12-26 Initial Rojelio Roach [facility] 1.2.325.469 [id number] Univers 13:39:48 14:51:20 Cam [place] 350.1.13.10 ity of Visit [place] 4.2.7.2.[place] [phone] Ut dical nal 134 [facility] 2020-12-26 2020-12-26 Outpatient R MARLEY ROJELIO [facility] [id number] Univers 14:15:00 14:15:00 ity of [facility] 2020-12-26 2020-12-26 Outpatient R TYRONE [facility] [id number] Univers 13:15:00 13:15:00 SADIA ity of [facility] 2020-12-26 2020-12-26 Orders Doctor AURA 1.2.840.114 [id number] Univers 00:00:00 00:00:00 Only Unassigned, ANUJ 350.1.13.10 ity of [place] [facility]OS[facility] 4.2.7.2.686 [place] [phone] [facility] [address] 2020-12-26 2020-12-26 Letter Doctor AURA 1.2.840.114 [id number] Univers 00:00:00 00:00:00 (Out) Unassigned, ANUJ 350.1.13.10 ity of [place] [facility]OS[facility] 4.2.7.2.686 [place] [phone] [facility] 0[address] Results Test Description Test Time Test Comments Results Result Comments Source CBC with Differential 2021-08-02 11:15:58 Test Item Value Reference Range Interpretation Comme nts WBC (test code = 6690-2) See_Comment [A utomated message] The system which ALLGOOB nerated this result transmit trevor reference range: 4.30 - 1 1.10 10*3/?L. The reference r parag was not used to interpr et this result as normal/abnor mal. RBC (test code = 789-8) See_Comment [Au tomated message] The system which ALLGOOB nerated this result transmit trevor reference range: [...] 32.3 g/dL 31.6-35.1 RDW-SD (test code = 66834-2) 47.2 fL 39.0-49.9 RDW-CV (test code = 788-0) 14.6 % 12.0-15.5 PLT (test code = 777-3) See_Comment [Au tomated message] The system which ge nerated this result transmit trevor reference range: 166 - 35 8 10*3/?L. The reference range was not used to interpret th is result as normal/abnormal . MPV (test code = 88834-4) 10.6 fL 9.5-12.9 NRBC/100 WBC (test code = See_Comment [ Automated message] The 2763724910) system which ge nerated this result transmit trevor reference range: 0.0 - 10 .0 /100 WBCs. The reference r parag was not used to interpr et this result as normal/abnor mal. NRBC x10^3 (test code = <0.01 See_Comment [Au tomated message] The 2891762494) system which ge nerated this result transmit trevor reference range: 10*3/?L. The reference range was not u sed to interpret this result as normal/abnormal . GRAN MAT (NEUT) % (test code 69.5 % = 770-8) IMM GRAN % (test code = 0.40 % 7607039636) LYMPH % (test code = 736-9) 20.1 % MONO % (test code = 5905-5) 8.3 % EOS % (test code = 713-8) 1.4 % BASO % (test code = 706-2) 0.3 % GRAN MAT x10^3(ANC) (test 4.95 10*3/uL 1.88-7.09 code = 6093518794) IMM GRAN x10^3 (test code = 0.03 10*3/uL 0.00-0.06 6993709667) LYMPH x10^3 (test code = 1.43 10*3/uL 1.32-3.29 731-0) MONO x10^3 (test code = 0.59 10*3/uL 0.33-0.92 742-7) EOS x10^3 (test code = 0.10 10*3/uL 0.03-0.39 711-2) BASO x10^3 (test code = <0.03 0.01-0.07 704-7) Lab Interpretation (test Abnormal code = 00264-5) [facility] [id number] 11:15:58 Test Item Value Reference Range Interpretation [...] RDW-SD (test code = 47.2 fL 39.0-49.9 60241-9) RDW-CV (test code = 14.6 % 12.0-15.5 788-0) PLT (test code = See_Comment [Automated 777-3) message] The sy stem which generated this result transmitted reference range : 166 - 358 10*3/ ?L. The reference r parag was not used to interpret this result as normal/abnormal . MPV (test code = 10.6 fL 9.5-12.9 29134-7) NRBC/100 WBC (test See_Comment [Automat ed code = 8519921816) message] The system which generated this result transmitted reference range : 0.0 - 10.0 /100 WBCs. The refer ence range was not u sed to interpret th is result as normal/abnormal . NRBC x10^3 (test code <0.01 See_Comment [Auto mated = 2200963740) message] The s ystem which generated this result transmitted reference range : 10*3/?L. The reference range was not used to interpret this result as normal/abnormal . GRAN MAT (NEUT) % 69.5 % (test code = 770-8) IMM GRAN % (test code 0.40 % = 5948352768) LYMPH % (test code = 20.1 % 736-9) MONO % (test code = 8.3 % 5905-5) EOS % (test code = 1.4 % 713-8) BASO % (test code = 0.3 % 706-2) GRAN MAT x10^3(ANC) 4.95 10*3/uL 1.88-7.09 (test code = 7075886164) IMM GRAN x10^3 (test 0.03 10*3/uL 0.00-0.06 code = 9736187990) LYMPH x10^3 (test code 1.43 10*3/uL 1.32-3.29 = 731-0) MONO x10^3 (test code 0.59 10*3/uL 0.33-0.92 = 742-7) EOS x10^3 (test code = 0.10 10*3/uL 0.03-0.39 711-2) BASO x10^3 (test code <0.03 0.01-0.07 = 704-7) Lab Interpretation Abnormal (test code = 17433-2) [facility] (D) IMMUNE [id number] 20:14:21 Test Item Value Reference Range Interpretation Comments RHIG CANDIDATE? No- see comment Patient i s not a (test code = candidate for R hIg- 5055) Patient is Rh Positive.Perfor med at [facility] Laboratory Services [facility] Blood [address] [place] [address] Free: [phone] A No. [id number] [facility] (D) IMMUNE [id number] 20:14:21 Test Item Value Reference Range Interpretation Comments RHIG CANDIDATE? No- see comment Patient i s not a (test code = candidate for R hIg- 5055) Patient is Rh Positive.Perfor med at [facility] Laboratory Services - [facility] Blood [address] [place], [place] [address]Toll Free: [phone] A No. [id number] [facility] Screen - ONCE [id number] 01:57:26 Test Item Value Reference Range Interpretation Comments ABO & RH (test code A Positive Performe d at [facility] = 20) Laboratory Serv [facility] Blood Bank[address] [place], [place] [address]Toll Free: [phone] A No. [id number] IAT (test code = Negative Performed a t [facility] 1185) Laboratory Serv [facility] Blood Bank1 [address] [place], [place] [address]Toll Free: [phone] A No. [id number] [facility] [id number] 01:35:53 Test Item Value Reference Range Interpretation Comments WBC (test code = See_Comment [Automated 4134-2) message] The sy stem which generated this result transmitted reference range : 4.30 - 11.10 10*3/?L. The reference range was not used to interpret this result as normal/abnormal . RBC (test code = See_Comment [Automated 169-8) message] The sy stem which generated this [...] RDW-SD (test code = 46.4 fL 39.0-49.9 95322-8) RDW-CV (test code = 14.9 % 12.0-15.5 788-0) PLT (test code = See_Comment [Automated 777-3) message] The sy stem which generated this result transmitted reference range : 166 - 358 10*3/ ?L. The reference r parag was not used to interpret this result as normal/abnormal . MPV (test code = 10.1 fL 9.5-12.9 73241-1) NRBC/100 WBC (test See_Comment [Automat ed code = 7634263837) message] The system which generated this result transmitted reference range : 0.0 - 10.0 /100 WBCs. The refer ence range was not u sed to interpret th is result as normal/abnormal . NRBC x10^3 (test code <0.01 See_Comment [Auto mated = [id number]) message] The s ystem which generated this result transmitted reference range : 10*3/?L. The reference range was not used to interpret this result as normal/abnormal . GRAN MAT (NEUT) % 73.0 % (test code = 770-8) IMM GRAN % (test code 0.50 % = [id number]) LYMPH % (test code = 18.9 % 736-9) MONO % (test code = 6.6 % 5905-5) EOS % (test code = 0.8 % 713-8) BASO % (test code = 0.2 % 706-2) GRAN MAT x10^3(ANC) 4.79 10*3/uL 1.88-7.09 (test code = [id number]) IMM GRAN x10^3 (test 0.03 10*3/uL 0.00-0.06 code = [id number]) LYMPH x10^3 (test code 1.24 10*3/uL 1.32-3.29 L = 731-0) MONO x10^3 (test code 0.43 10*3/uL 0.33-0.92 = 742-7) EOS x10^3 (test code = 0.05 10*3/uL 0.03-0.39 711-2) BASO x10^3 (test code <0.03 0.01-0.07 = 704-7) Lab Interpretation Abnormal (test code = 00839-1) [facility] URINALYSIS W/O SPECIFIC [id number] 22:26:00 Test Item Value Reference Range Interpretation [...] code = 3257) negative Negative - [facility] [id number] 22:19:00 Test Item Value Reference Range Interpretation [...] Negative Lab Interpretation (test code = Normal 23947-0) [facility] URINALYSIS W/O SPECIFIC [id number] 22:21:00 Test Item Value Reference Range Interpretation [...] code = 3257) N/A Negative - [facility]IFIC [id number] 22:01:00 Test Item Value Reference Range Interpretation [...] code = 3257) N/A Negative - [facility]O SPECIFIC [id number] 22:09:00 Test Item Value Reference Range Interpretation [...] code = 3257) n/a Negative - Negative [facility] [id number] 16:45:00 Test Item Value Reference Range Interpretation [...] HPF NONE BACU) Urine Source? Clean CatchURINALYSIS [id number] 16:45:00 Test Item Value Reference Range Interpretation [...] A MUCU) Urine Source? Clean CatchBASIC METABOLIC [id number] 11:59:00 Test Item Value Reference Range Interpretation [...] 8.6 mg/dL 8.5-10.1 N CA) HEPATIC FUNCTION [id number] 11:59:00 Test Item Value Reference Range Interpretation [...] ALKP) to change in reagent. HCG SERUM [id number] 11:59:00 Test Item Value Reference Range Interpretation Comments HCG SERUM BETA 8832.0 mIU/mL 0-3 H Interfering substances (test code = present in the serum of HCG) somepatients ma y cause a false-positive result in this assay.Ques tionable elevations in s ktahy hCG should be confi rmedwith a urine [...] S AFTER CONCEPTION 10,000-100,000 MIU/ML CBC W/O [id number] 11:40:00 Test Item Value Reference Range Interpretation [...] fL 6.7-11.0 N = MPV) BASIC METABOLIC [id number] 11:38:00 Test Item Value Reference Range Interpretation [...] code = CA) mg/dL 8.5-10.1 HEPATIC FUNCTION [id number] 11:38:00 Test Item Value Reference Range Interpretation [...] IUnit/L 45-117 code = ALKP) HCG SERUM [id number] 11:38:00 Test Item Value Reference Range Interpretation Comments HCG SERUM BETA (test code = HCG) mIU/mL 0-3 - US PREG AFTER [id number] 11:36:00 Name: YENNY TOPETE [facility] : 1995 Age/S: 23 / F [address] [facility] Unit #: [id number] Loc: [place] [address] Phys: Angy Hooper NP Acct: [id number] Dis Date: Status: REGER PHONE #: [phone] Exam Date: 08/04/2019 1104 FAX #: [phone] Reason: bleed in pregnnacy EXAMS: CPT CODE: [id number] US PREG AFTER 41911 REASON FOR EXAM: bleed in pregnnacy EXAM ORDER DATE: 08/04/2019 11:16 AM Attending Yady: Angy Hooper NP PROCEDURE: - US PREG AFTER TRI FINDINGS: The cervix is closed. heart rate [...] delivery date is [birth year] 18, 2018. Location: [facility] at 1136 Reported and signed by: Abdifatah Posadas MD CC: Reese Blas MD; Angy Hooper NP Technologist: GILLES Schneider Trnscb Date/Time: 08/04/2019 (1136) [id number] Orig Print D/T: S: 08/04/2019 (5874) Probe: PAGE 1 Signed Report URINALYSIS [id number] 11:16:00 Test Item Value Reference Range Interpretation [...]
[2022-04-29] MEDS ORDERED: ACETAMINOPHEN 500 MG TAB ONE (19:18)
[2022-04-29 20:15] LABS: SARS-COV-2 RT PCR NEGATIVE (NEGATIVE)
--- NOTE | 2022-04-29 20:35 | EDPHYS ---
Physician Documentation [facility] Name: Lucille Man Age: 26 yrs Sex: Female : 1995 Arrival Date: 04/29/2022 Time: 18:48 Bed IW2 Private MD: ED Physician Jase Jefferson HPI: 04/29 19:23 This 26 yrs old Female presents to ER via Ambulatory with complaints of Cough, snw Congestion, fatigue. 19:23 The patient or guardian reports cough. Onset: The symptoms/episode began/occurred snw suddenly, 2 day(s) ago, and became persistent. Severity of symptoms: At their worst the symptoms were moderate. Associated signs and symptoms: The patient has no apparent associated signs or symptoms. The patient has not experienced similar symptoms in the past, but family has similar symptoms, daughter. The patient has not recently seen a physician. 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 - Social history:: Smoking status: Patient denies any tobacco usage or history of. Patient/guardian denies using alcohol. ROS: 19:19 Eyes: Negative for injury, pain, redness, and discharge, Neck: Negative for injury, snw pain, and swelling. 19:19 ENT: Negative for injury, pain, and discharge, Cardiovascular: Negative for chest pain, palpitations, and edema. 19:19 Abdomen/GI: Negative for abdominal pain, nausea, vomiting, diarrhea, and constipation, Back: Negative for injury and pain, : Negative for injury, bleeding, discharge, and swelling, MS/Extremity: Negative for injury and deformity, Skin: Negative for injury, rash, and discoloration, Neuro: Negative for headache, weakness, numbness, tingling, and seizure. 19:19 Constitutional: Positive for body aches, chills, fatigue, malaise. 19:19 ENT: Positive for 19:19 Respiratory: Positive for cough, shortness of breath. Exam: 19:18 Head/Face: Normocephalic, atraumatic. Eyes: Pupils equal round and reactive to light, snw extra-ocular motions intact. Lids and lashes normal. Conjunctiva and sclera are non-icteric and not injected. Cornea within normal limits. Periorbital areas with no swelling, redness, or edema. ENT: Nares patent. No nasal discharge, no septal abnormalities noted. Tympanic membranes are normal and external auditory canals are clear. Oropharynx with no redness, swelling, or masses, exudates, or evidence of obstruction, uvula midline. Mucous membranes moist. Neck: Trachea midline, no thyromegaly or masses palpated, and no cervical lymphadenopathy. Supple, full range of motion without nuchal rigidity, or vertebral point tenderness. No Meningismus. Chest/axilla: Normal chest wall appearance and motion. Nontender with no deformity. No lesions are appreciated. 19:18 Abdomen/GI: Soft, non-tender, with normal bowel sounds. No distension or tympany. No guarding or rebound. No evidence of tenderness throughout. Back: No spinal tenderness. No costovertebral tenderness. Full range of motion. Skin: Warm, dry with normal turgor. Normal color with no rashes, no lesions, and no evidence of cellulitis. MS/ Extremity: Pulses equal, no cyanosis. Neurovascular intact. Full, normal range of motion. Neuro: Awake and alert, GCS 15, oriented to person, place, time, and situation. Cranial nerves II-XII grossly intact. Motor strength 5/5 in all extremities. Sensory grossly intact. Cerebellar exam normal. Normal gait. 19:18 Constitutional: The patient appears alert, awake, febrile, uncomfortable. 19:18 Cardiovascular: Rate: tachycardic, Heart sounds: normal. 19:18 Respiratory: Breath sounds: are clear throughout. Vital Signs: 19:22 BP 111 / 83; Pulse 78; Resp 18; Temp 101.2(O); Pulse Ox 100% on R/A; Weight 88.45 kg; ld1 Height 5 ft. 0 in. (152.40 cm); Pain 0/10; 19:22 Body Mass Index 38.08 (88.45 kg, 152.40 cm) ld1 MDM: 19:26 Patient medically screened. snw 20:35 Data reviewed: vital signs, nurses notes. Data interpreted: Pulse oximetry: on room air snw is 100 %. Interpretation: normal. Counseling: I had a detailed discussion with the patient and/or guardian regarding: the historical points, exam findings, and any diagnostic results supporting the discharge/admit diagnosis, lab results, the need for outpatient follow up, to return to the emergency department if symptoms worsen or persist or if there are any questions or concerns that arise at home. Special discussion: Based on the history and exam findings, there is no indication for further emergent testing or inpatient evaluation. I discussed with the patient/guardian the need to see the primary care provider for further evaluation of the symptoms. 04/29 19:11 Order name: COVID-19/FLU A+B/RSV; Complete Time: 20:34 ld1 04/29 19:11 Order name: Strep; Complete Time: 19:54 ld1 04/29 19:51 Order name: Throat Culture EDMS Administered Medications: 19:23 Drug: Tylenol 1000 mg Route: PO; ld1 Disposition: 04/30 02:20 Co-signature as Attending Physician, Jase Jefferson MD I agree with the assessment and rt plan of care. Disposition Summary: 04/29/22 20:35 Discharge Ordered Location: Home snw Condition: Stable snw Diagnosis - Influenza due to identified novel influenza A virus snw Followup: snw - With: Emergency Department - When: As needed - Reason: Worsening of condition Followup: snw - With: Private Physician - When: 5 - 6 days - Reason: Recheck today's complaints, Continuance of care, Re-evaluation by your physician Discharge Instructions: - Discharge Summary Sheet snw - Fever, Adult snw - Influenza, Adult, [id number] snw Forms: - Medication Reconciliation Form snw - Thank You Letter snw - Antibiotic Education snw - Prescription Opioid Use snw - Work release form snw Prescriptions: - Zyrtec 10 mg Oral Tablet - take 1 tablet by ORAL route once daily As needed; 20 tablet; Refills: 0, snw Product Selection Permitted - orphenadrine citrate 100 mg Oral Tablet Sustained Release - take 1 tablet by ORAL route 2 times per day As needed; 20 tablet; Refills: 0, snw Product Selection Permitted - Pepcid 20 mg Oral Tablet - take 1 tablet by ORAL route once daily; 20 tablet; Refills: 0, Product snw Selection Permitted Signatures: Dispatcher [employer] EDMS Gardenia Myrick, REPACK ROOM WORKER-C REPACK ROOM WORKER-Csnw Laura Shin, RN RN ld1 Jase Jefferson MD MD rt
--- NOTE | 2022-04-29 20:35 | ER ---
Nurse's Notes [facility] Name: Lucille Man Age: 26 yrs Sex: Female : 1995 Arrival Date: 04/29/2022 Time: 18:48 Bed IW2 Private MD: Diagnosis: Influenza due to identified novel influenza A virus Presentation: 04/29 19:22 Chief complaint: Patient states: fever, cough, headache, congestion X 1 day. ld1 Coronavirus screen: At this time, the client does not indicate any symptoms associated with coronavirus-19. Ebola Screen: No symptoms or risks identified at this time. Initial Sepsis Screen: Does the patient meet any 2 criteria? No. Patient's initial sepsis screen is negative. Does the patient have a suspected source of infection? No. Patient's initial sepsis screen is negative. Risk Assessment: Do you want to hurt yourself or someone else? Patient reports no desire to harm self or others. Onset of symptoms was April 29, 2022. 19:22 Method Of Arrival: Ambulatory ld1 19:22 Acuity: SYLVESTER 4 ld1 Triage Assessment: 19:22 General: Appears in no apparent distress. comfortable, Behavior is calm, cooperative, ld1 appropriate for age. Pain: Denies pain. EENT: No signs and/or symptoms were reported regarding the EENT system. Neuro: Level of Consciousness is awake, alert, obeys commands, Oriented to person, place, time, situation. Cardiovascular: Capillary refill < 3 seconds Patient's skin is warm and dry. Respiratory: Airway is patent Respiratory effort is even, unlabored, Breath sounds are clear bilaterally. GI: Abdomen is flat, non-distended. : No signs and/or symptoms were reported regarding the genitourinary system. Derm: No signs and/or symptoms reported regarding the dermatologic system. Musculoskeletal: No signs and/or symptoms reported regarding the musculoskeletal system. 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 - Social history:: Smoking status: Patient denies any tobacco usage or history of. Patient/guardian denies using alcohol. Screenin:59 Abuse screen: Denies threats or abuse. Denies injuries from another. Nutritional ld1 screening: No deficits noted. Tuberculosis screening: No symptoms or risk factors identified. Fall Risk None identified. Assessment: 20:59 Reassessment: See triage assessment. ld1 Vital Signs: 19:22 BP 111 / 83; Pulse 78; Resp 18; Temp 101.2(O); Pulse Ox 100% on R/A; Weight 88.45 kg; ld1 Height 5 ft. 0 in. (152.40 cm); Pain 0/10; 19:22 Body Mass Index 38.08 (88.45 kg, 152.40 cm) ld1 ED Course: 18:48 Patient arrived in ED. am2 19:08 Garden[facility] Myrick [facility]C [facility] snw 19:08 Jase Jefferson MD is Attending Physician. snw 19:22 Triage completed. ld1 19:22 Arm band placed on right wrist. ld1 19:23 Strep Sent. ld1 19:23 COVID-19/FLU A+B/RSV Sent. ld1 20:59 Patient has correct armband on for positive identification. Placed in gown. Bed in low ld1 position. Call light in reach. Side rails up X2. Pulse ox on. NIBP on. Door closed. Noise minimized. 20:59 No provider procedures requiring assistance completed. Patient did not have IV access ld1 during this emergency room visit. Administered Medications: 19:23 Drug: Tylenol 1000 mg Route: PO; ld1 Medication: 20:59 VIS not applicable for this client. ld1 Outcome: 20:35 Discharge ordered by . snw 20:59 Discharged to home ambulatory. ld1 20:59 Condition: stable 20:59 Discharge instructions given to patient, family, Instructed on discharge instructions, follow up and referral plans. medication usage, Demonstrated understanding of instructions, follow-up care, medications, Prescriptions given X 2. 21:01 Patient left the ED. ld1 Signatures: Gardenia Myrick FNP-C ENTRY LEVEL FINANCE-Csnw Ni Mosley am2 Laura Shin RN RN ld1
[2022-04-29 21:31] VITALS: BP 111/83; TEMP 101.2; O2SAT 100
== END 2022-04-29 21:01 | disposition home or self-care (01) ==
LOC: ER 18:47
DX: J10.1 Influenza due to other identified influenza virus with other respiratory manifestations (principal); Z20.822 Contact with and (suspected) exposure to COVID-19
CPT/HCPCS: 87070; 87081; 0241U; 99284